=== PATIENT | female | born 1940 | race Caucasian/White ===

== ENCOUNTER 2018-01-29 20:51 | Emergency (ER) | payer OTHER ==
[2018-01-29 22:00] LABS: Absolute Lymphocytes (CBC) 2.9 K/uL (0.7-4.9); Absolute Neutrophil 6.9 K/uL (1.8-8.0); Basophils % 0.7 % (0-1.3); Eosinophils % 2.5 % (0-4.4); Hematocrit 34.9 % (36.0-45.0); Lymphocytes % 26.2 % (15.3-44.8); MCV 83.3 fL (80-100); MPV 7.7 fL (7.6-11.3); Monocytes % 8.7 % (3.3-12.3); RBC Red Blood Cell Count 4.18 M/uL (3.86-4.86)
[2018-01-29 22:21] LABS: Potassium 4.6 mEq/L (3.6-5.0)
--- NOTE | 2018-01-29 23:22 | EDPHYS ---
Physician Documentation [facility] Name: Lynda Esquivel Age: 77 yrs Sex: Female : 1940 Arrival Date: 01/29/2018 Time: 20:54 Bed 14 Private MD: Олег Calhoun V ED Physician Wade Gomez HPI: 01/29 22:00 This 77 yrs old Female presents to ER via Ambulatory with complaints of kb Constipation. 22:00 The patient presents with abdominal pain. Onset: The symptoms/episode began/occurred 3 kb day(s) ago. The symptoms do not radiate. Associated signs and symptoms: Pertinent positives: constipation, Pertinent negatives: nausea, vomiting, and diarrhea. The symptoms are described as constant. Modifying factors: The symptoms are alleviated by nothing, the symptoms are aggravated by nothing. Severity of pain: At its worst the pain was mild moderate in the emergency department the pain is unchanged. The patient has experienced similar episodes in the past, multiple times. The patient has not recently seen a physician. Historical: - Allergies: 21:00 metformin; aa1 21:00 Edkzyfg-Zoi-Vtw Reductase Inhibitors; aa1 - Home Meds: 21:00 levothyroxine oral [Active]; unknown blood pressure medication [Active]; unknown aa1 insulin [Active]; Lantus Sub-Q [Active]; Humalog Sub-Q [Active]; - PMHx: 21:00 Diabetes - IDDM; Hypertension; Hypothyroidism; pulmonary fibrosis; aa1 21:00 Renal Disease; aa1 - PSHx: 21:00 Heart Surgery; Hysterectomy; Cholecystectomy; aa1 - Immunization history:: Flu vaccine is up to date. - Social history:: Smoking status: Patient/guardian denies using tobacco. ROS: 22:00 Constitutional: Negative for fever, chills, and weight loss, Cardiovascular: Negative kb for chest pain, palpitations, and edema, Respiratory: Negative for shortness of breath, cough, wheezing, and pleuritic chest pain, Back: Negative for injury and pain, : Negative for injury, bleeding, discharge, and swelling, MS/Extremity: Negative for injury and deformity, Skin: Negative for injury, rash, and discoloration, Neuro: Negative for headache, weakness, numbness, tingling, and seizure. 22:00 Abdomen/GI: Positive for abdominal pain, constipation, Negative for nausea, vomiting, and diarrhea, abdominal cramps, abdominal distension, anorexia. Exam: 22:00 Constitutional: This is a well developed, well nourished patient who is awake, alert, kb and in no acute distress. Head/Face: Normocephalic, atraumatic. Chest/axilla: Normal chest wall appearance and motion. Nontender with no deformity. No lesions are appreciated. Cardiovascular: Regular rate and rhythm with a normal S1 and S2. No gallops, murmurs, or rubs. Normal PMI, no JVD. No pulse deficits. Respiratory: Lungs have equal breath sounds bilaterally, clear to auscultation and percussion. No rales, rhonchi or wheezes noted. No increased work of breathing, no retractions or nasal flaring. Back: No spinal tenderness. No costovertebral tenderness. Full range of motion. Skin: Warm, dry with normal turgor. Normal color with no rashes, no lesions, and no evidence of cellulitis. MS/ Extremity: Pulses equal, no cyanosis. Neurovascular intact. Full, normal range of motion. Neuro: Awake and alert, GCS 15, oriented to person, place, time, and situation. Cranial nerves II-XII grossly intact. Motor strength 5/5 in all extremities. Sensory grossly intact. Cerebellar exam normal. Normal gait. 22:00 Abdomen/GI: Inspection: abdomen appears normal, Bowel sounds: normal, in all quadrants, Palpation: soft, in all quadrants, mild abdominal tenderness, in all quadrants. 23:20 Abdomen/GI: Rectal exam: rectal tone normal, fecal impaction, that is mild, the exam is kb chaperoned by the nurse, disimpaction performed by me. Moderated amount of soft stool removed. . Vital Signs: 21:00 BP 130 / 53; Pulse 75; Resp 22; Temp 97.6; Pulse Ox 95% on R/A; Weight 90.72 kg (R); aa1 Height 5 ft. 4 in. (162.56 cm); Pain 8/10; 22:06 BP 141 / 57; Pulse 97; Resp 20 S; Pulse Ox 95% on R/A; jd3 23:04 BP 161 / 65; Pulse 71; Resp 21 S; Pulse Ox 95% on R/A; Pain 8/10; jd3 21:00 Body Mass Index 34.33 (90.72 kg, 162.56 cm) aa1 MDM: 21:03 Patient medically screened. kb 22:00 Data reviewed: vital signs, nurses notes. Data interpreted: Pulse oximetry: on room air kb is 95 %. Interpretation: normal. 23:09 Counseling: I had a detailed discussion with the patient and/or guardian regarding: the kb historical points, exam findings, and any diagnostic results supporting the discharge/admit diagnosis, lab results, radiology results, the need for outpatient follow up, a family practitioner, to return to the emergency department if symptoms worsen or persist or if there are any questions or concerns that arise at home. 01/29 21:20 Order name: Creatinine for Radiology; Complete Time: 22:05 kb 01/29 21:20 Order name: Basic Metabolic Panel; Complete Time: 22:22 kb 01/29 21:20 Order name: CBC with Diff; Complete Time: 22:11 kb 01/29 21:20 Order name: IV Saline Lock; Complete Time: 21:48 kb 01/29 21:20 Order name: CT Abd/Pelvis - W/Contrast kb 01/29 21:20 Order name: Labs collected and sent; Complete Time: 21:48 kb Administered Medications: 23:25 Drug: Magnesium Citrate Liquid 300 ml Route: PO; jd3 23:45 Follow up: Response: Medication administered at discharge. jd3 Disposition: 01/29/18 23:21 Discharged to Home. Impression: Constipation. - Condition is Stable. - Discharge Instructions: Constipation, Adult, Sgij-fm-Wbtm. - Medication Reconciliation Form, Thank You Letter, Antibiotic Education, Prescription Opioid Use form. - Follow up: Emergency Department; When: As needed; Reason: Worsening of condition. Follow up: Private Physician; When: 2 - 3 days; Reason: Recheck today's complaints, Continuance of care, Re-evaluation by your physician. Addendum: 01/31/2018 18:58 Co-signature as Attending Physician, Wade Gomez MD I agree with the assessment and c flores plan of care. Signatures: Dispatcher [employer] Juliana Mccoy, TORY-C TORY-Shahrzad Ferrer, RN RN aa1 Wade Gomez MD MD cha Davies, Jonathon RN RN jd3
--- NOTE | 2018-01-29 23:22 | ER ---
Nurse's Notes [facility] Name: Lynda Esquivel Age: 77 yrs Sex: Female : 1940 Arrival Date: 01/29/2018 Time: 20:54 Bed 14 Private MD: Олег Calhoun V Diagnosis: Constipation Presentation: 01/29 20:58 Presenting complaint: Patient states: constipation x 3 days. Reports chronic aa1 constipation. States she has tried OTC methods with no relief. Transition of care: patient was not received from another setting of care. Onset of symptoms was January 27, 2018. Care prior to arrival: None. 20:58 Method Of Arrival: Ambulatory aa1 20:58 Acuity: SHANIQUA 3 aa1 21:51 Mechanism of Injury: No Mechanism of Injury. jd3 Triage Assessment: 21:00 General: Appears in no apparent distress. uncomfortable, Behavior is calm, cooperative, aa1 appropriate for age. Historical: - Allergies: 21:00 metformin; aa1 21:00 Fwrasnt-Cva-Hus Reductase Inhibitors; aa1 - Home Meds: 21:00 levothyroxine oral [Active]; unknown blood pressure medication [Active]; unknown aa1 insulin [Active]; Lantus Sub-Q [Active]; Humalog Sub-Q [Active]; - PMHx: 21:00 Diabetes - IDDM; Hypertension; Hypothyroidism; pulmonary fibrosis; aa1 21:00 Renal Disease; aa1 - PSHx: 21:00 Heart Surgery; Hysterectomy; Cholecystectomy; aa1 - Immunization history:: Flu vaccine is up to date. - Social history:: Smoking status: Patient/guardian denies using tobacco. Screenin:51 Abuse screen: Denies threats or abuse. Nutritional screening: No deficits noted. jd3 Tuberculosis screening: No symptoms or risk factors identified. Fall Risk IV access (20 points). Total Herring Fall Scale indicates No Risk (0-24 pts). Assessment: 21:40 General: Appears in no apparent distress. comfortable, Behavior is calm, cooperative, jd3 appropriate for age. Pain: Complains of pain in left upper quadrant and left lower quadrant Quality of pain is described as crampy, pressure. Neuro: Level of Consciousness is awake, alert, obeys commands, Oriented to person, place, time, situation. Cardiovascular: Heart tones S1 S2 present Capillary refill is > 3 seconds Patient's skin is warm and dry. Respiratory: Airway is patent Respiratory effort is even, unlabored, Respiratory pattern is regular, symmetrical, Breath sounds are clear bilaterally. GI: Abdomen is round Bowel sounds present X 4 quads. Abd is soft and non tender X 4 quads. : No signs and/or symptoms were reported regarding the genitourinary system. EENT: No signs and/or symptoms were reported regarding the EENT system. Derm: Skin is intact, Skin is dry, Skin is normal, Skin temperature is warm. Musculoskeletal: Circulation, motion, and sensation intact. Range of motion: intact in all extremities. 23:04 Reassessment: Patient appears in no apparent distress at this time. Patient and/or jd3 family updated on plan of care and expected duration. Pain level reassessed. Patient is alert, oriented x 3, equal unlabored respirations, skin warm/dry/pink. pt reporting pain, provider notified, no new orders at this time. 23:44 Reassessment: Patient appears in no apparent distress at this time. Patient and/or jd3 family updated on plan of care and expected duration. Pain level reassessed. Patient is alert, oriented x 3, equal unlabored respirations, skin warm/dry/pink. pt reported understanding of discharge instructions, pt assisted to front of ED with wheelchair. Vital Signs: 21:00 BP 130 / 53; Pulse 75; Resp 22; Temp 97.6; Pulse Ox 95% on R/A; Weight 90.72 kg (R); aa1 Height 5 ft. 4 in. (162.56 cm); Pain 8/10; 22:06 BP 141 / 57; Pulse 97; Resp 20 S; Pulse Ox 95% on R/A; jd3 23:04 BP 161 / 65; Pulse 71; Resp 21 S; Pulse Ox 95% on R/A; Pain 8/10; jd3 21:00 Body Mass Index 34.33 (90.72 kg, 162.56 cm) aa1 ED Course: 20:54 Patient arrived in ED. es 20:54 Олег Calhoun MD is Private Physician. es 20:58 Triage completed. aa1 21:00 Arm band placed on left wrist. aa1 21:03 [facility]C [facility] kb 21:03 Wade Gomez MD is Attending Physician. kb 21:23 Radiology exam delayed due to lab results not completed at this time. (BUN/Creatinine). 2 21:29 Anthony Noguera, RN is Primary Nurse. jd3 21:45 Inserted saline lock: 22 gauge in left antecubital area, using aseptic technique. Blood jd3 collected. 21:46 Radiology exam delayed due to lab results not completed at this time. (BUN/Creatinine). nj 21:48 CBC with Diff Sent. jd3 21:48 Basic Metabolic Panel Sent. jd3 21:48 Creatinine for Radiology Sent. jd3 21:50 Patient has correct armband on for positive identification. Bed in low position. Call jd3 light in reach. Side rails up X 1. Adult w/ patient. 22:28 CT completed. Patient tolerated procedure well. Patient moved back from CT. ri 22:28 CT Abd/Pelvis - W/Contrast In Process Unspecified. EDMS 23:43 No provider procedures requiring assistance completed. IV discontinued, intact, jd3 bleeding controlled, No redness/swelling at site. Pressure dressing applied. Administered Medications: 23:25 Drug: Magnesium Citrate Liquid 300 ml Route: PO; jd3 23:45 Follow up: Response: Medication administered at discharge. jd3 Outcome: 23:21 Discharge ordered by MD. kb 23:43 Discharged to home via wheelchair, with family. jd3 23:43 Condition: stable 23:43 Discharge instructions given to patient, Instructed on discharge instructions, follow up and referral plans. Demonstrated understanding of instructions, follow-up care. 23:46 Patient left the ED. jd3 Signatures: Dispatcher [employer] EDSC Juliana Alfaro, TORY-C SCHOOL EXAMINER-Shahrzad Ferrer, RN RN Naty Lynch Nathan nj McGuire, [facility] Anthony Noguera, RN RN jd3
[2018-01-29] MEDS ORDERED: MAGNESIUM CITRATE 300 ML BOT ONE (23:24)
[2018-01-29 23:50] VITALS: TEMP 97.6; O2SAT 95
[2018-01-29 23:52] VITALS: BP 161/65
--- NOTE | 2018-01-30 08:23 | RAD REPORT ---
EXAM DESCRIPTION: CTAbdomen Pelvis W Contrast - 01/30/2018 4:29 am CLINICAL HISTORY: Abdominal pain. COMPARISON: None. TECHNIQUE: Biphasic CT imaging of the abdomen and pelvis was performed with 100 ml non-ionic IV cont rast. All CT scans are performed using dose optimization technique as appropriate and may include automated exposure control or mA/KV adjustment according to patient size. FINDINGS: Emphysematous changes are present with fibrotic linear opacities in both posterior lung ba ses.Small hiatal hernia. The liver demonstrates diffuse fatty infiltration. The spleen, pancreas, adrenal glands and kidneys a re within normal limits. No bowel obstruction, free air, free fluid or abscess. The appendix is normal. No evidence of signi ficant lymphadenopathy. No suspicious bony findings. IMPRESSION: No acute intra-abdominal or pelvic finding. Fatty liver.
== END 2018-01-29 23:46 | disposition home or self-care (01) ==
LOC: ER 20:51
DX: K59.00 Constipation, unspecified (principal); I10 Essential (primary) hypertension; E11.9 Type 2 diabetes mellitus without complications; E03.9 Hypothyroidism, unspecified; Z79.4 Long term (current) use of insulin; Z88.8 Allergy status to other drugs, medicaments and biological substances
CPT/HCPCS: 36415; 74177; 80048; 85025; Q9967; 99284

== ENCOUNTER 2018-01-30 10:30 | Emergency (ER) | payer OTHER ==
--- NOTE | 2018-01-30 11:47 | ER ---
Nurse's Notes [facility] Name: Lynda Esquivel Age: 77 yrs Sex: Female : 1940 Arrival Date: 01/30/2018 Time: 10:33 Bed Waiting Private MD: Олег Calhoun V Diagnosis: Presentation: 01/30 10:45 Presenting complaint: Patient states: cant pooped, i went today, but its so small and i hj noticed some blood in my popped; last BM was 3 daysa go;. Transition of care: patient was not received from another setting of care. Onset of symptoms was January 30, 2018. Care prior to arrival: None. 10:45 Method Of Arrival: Ambulatory hj 10:45 Acuity: SHANIQUA 3 hj Triage Assessment: 10:47 General: Appears in no apparent distress. uncomfortable, Behavior is calm, cooperative, hj appropriate for age. Pain: Complains of pain in abdomen. GI: Reports constipation. Historical: - Allergies: 10:47 metformin; hj 10:47 Pntofpi-Any-Yce Reductase Inhibitors; hj - Home Meds: 10:47 Humalog Sub-Q [Active]; Lantus Sub-Q [Active]; levothyroxine oral [Active]; unknown hj blood pressure medication [Active]; unknown insulin [Active]; - PMHx: 10:47 Diabetes - IDDM; Hypertension; Hypothyroidism; pulmonary fibrosis; Renal Disease; hj - PSHx: 10:47 Heart Surgery; Hysterectomy; Cholecystectomy; hj Assessment: 10:47 GI: Bowel sounds present X 4 quads. Abd is soft. Vital Signs: 10:47 BP 114 / 52; Pulse 70; Resp 18; Temp 97.8(TE); Pulse Ox 96% on R/A; Weight 90.72 kg; hj Height 5 ft. 4 in. (162.56 cm); Pain 6/10; 10:47 Body Mass Index 34.33 (90.72 kg, 162.56 cm) ED Course: 10:33 Patient arrived in ED. rg4 10:33 Олег Calhoun MD is Private Physician. rg4 10:46 Triage completed. hj 10:47 Arm band placed on right wrist. hj 11:46 Christelle Ledbetter, RN is Primary Nurse. iw Administered Medications: No medications were administered Outcome: 11:46 Eloped from waiting room, Time discovered patient gone: January 30, 2018 at 11:46 iw 11:46 Patient left the ED. iw Signatures: Christelle Ledbetter RN RN Pavel Duncan RN RN Diana Gutierrez rg4 Corrections: (The following items were deleted from the chart) 10:50 10:47 Pulse Ox 100% RA; 90.72 kg; Height 5 ft. 4 in.; BMI: 34.3; Pain 6/10; dariel vieira
[2018-01-30 11:49] VITALS: BP 114/52; TEMP 97.8; O2SAT 96
== END 2018-01-30 11:46 | disposition left against medical advice (07) ==
LOC: ER 10:30
DX: Z53.21 Procedure and treatment not carried out due to patient leaving prior to being seen by health care provider (principal)
CPT/HCPCS: 99281

== ENCOUNTER 2018-02-25 13:10 | Emergency (ER) | payer OTHER ==
[2018-02-25] MEDS ORDERED: NA CHLORIDE 0.9% 500 ML ONE (14:42)
[2018-02-25 14:49] LABS: Absolute Lymphocytes (CBC) 2.4 K/uL (0.7-4.9); Absolute Monocytes 0.9 K/uL (0.1-1.3); Absolute Neutrophil 7.9 K/uL (1.8-8.0); Basophils % 0.5 % (0-1.3); Eosinophils % 3.4 % (0-4.4); Hematocrit 36.8 % (36.0-45.0); Lymphocytes % 20.6 % (15.3-44.8); MCH 26.3 pg (27.0-35.0); MCV 83.1 fL (80-100); MPV 7.7 fL (7.6-11.3); Monocytes % 7.4 % (3.3-12.3); RBC Red Blood Cell Count 4.42 M/uL (3.86-4.86)
[2018-02-25 15:02] LABS: Bicarbonate 32 mEq/L (21-31); Glucose Level 268 mg/dL (65-120); Lipase 21 U/L (22-51); Potassium 4.4 mEq/L (3.6-5.0)
[2018-02-25 15:09] LABS: ALT/SGPT 21 IU/L (10-60); AST/SGOT 27 IU/L (10-42); Albumin 3.7 g/dL (3.2-5.5); Alkaline Phosphatase 53 IU/L (42-121); BUN Blood Urea Nitrogen 30 mg/dL (6-20); Bilirubin Direct < 0.1 mg/dL (0-0.2); Bilirubin Total 0.5 mg/dL (0.3-1.2)
--- NOTE | 2018-02-25 15:51 | RAD REPORT ---
EXAM DESCRIPTION: CT - Abdomen Pelvis W Contrast - 02/25/2018 3:34 pm CLINICAL HISTORY: Abdominal pain./constipation COMPARISON: January 2018 TECHNIQUE: Computed axial tomography of the abdomen and pelvis was obtained. 100 cc Isovue-300 is ad ministered intravenously. Oral contrast was given. All CT scans are performed using dose optimization technique as appropriate and may include automated exposure control or mA/KV adjustment according to patient size. FINDINGS: Fatty infiltration of the liver is seen. Spleen, pancreas, and adrenals appear unremarkable. A 2 millimeter nonobstructing left renal calculus is seen. Mild right hydronephrosis is seen. A 3 millimeter calculus is present within the proximal right urete r There is no evidence of diverticulitis A tiny umbilical hernia is present. A moderate to large amount of stool is present throughout colon. A neurostimulator device is in place IMPRESSION: 3 millimeter calculus in the proximal right ureter resulting in mild right hydronephrosi s A moderate to large amount of stool is present throughout colon
[2018-02-25] MEDS ORDERED: FLEET ENEMA ADULT PR ONE (16:54)
--- NOTE | 2018-02-25 18:46 | EDPHYS ---
Physician Documentation [facility] Name: Lynda Esquivel Age: 77 yrs Sex: Female : 1940 Arrival Date: 02/25/2018 Time: 13:11 Bed 5 Private MD: ED Physician Hans Couch HPI: 02/25 15:23 This 77 yrs old Female presents to ER via Ambulatory with complaints of rn Constipation. 15:23 The patient presents with abdominal pain that is diffuse. Onset: The symptoms/episode rn began/occurred at an unknown time. The symptoms do not radiate. Associated signs and symptoms: Pertinent positives: constipation, nausea, Pertinent negatives: blood in stools, fever, shortness of breath, vomiting, vomiting blood. The symptoms are described as crampy, intermittent. Modifying factors: The symptoms are alleviated by nothing, the symptoms are aggravated by nothing. Severity of pain: At its worst the pain was mild in the emergency department the pain is unchanged. The patient has experienced similar episodes in the past. Reports chronic constipation, no fever/nausea/vomiting, reports took several stool softeners at home, + recent thoracic surgery and has not had good bowel movement for several days. Feels like has stool in rectum, comes out and then goes back in.. Historical: - Allergies: 13:15 metformin; hb 13:15 Athzqsa-Ecn-Jtt Reductase Inhibitors; hb - Home Meds: 13:15 Humalog Sub-Q [Active]; Lantus Sub-Q [Active]; levothyroxine oral [Active]; unknown hb blood pressure medication [Active]; unknown insulin [Active]; - PMHx: 13:15 Hypertension; Hypothyroidism; pulmonary fibrosis; Diabetes - IDDM; Renal Disease; hb - PSHx: 13:15 Hysterectomy; Heart Surgery; Cholecystectomy; hb - Immunization history:: Adult Immunizations up to date. - Social history:: Smoking status: Patient/guardian denies using tobacco. - Family history:: not pertinent. - Hospitalizations: : No recent hospitalization is reported. ROS: 15:23 Constitutional: Negative for fever, chills, and weight loss, Eyes: Negative for injury, rn pain, redness, and discharge, Cardiovascular: Negative for chest pain, palpitations, and edema, Respiratory: Negative for shortness of breath, cough, wheezing, and pleuritic chest pain, Abdomen/GI: Negative for vomiting, diarrhea MS/Extremity: Negative for injury and deformity, Skin: Negative for injury, rash, and discoloration, Neuro: Negative for headache, weakness, numbness, tingling, and seizure. Exam: 15:23 Constitutional: This is a well developed, well nourished patient who is awake, alert, rn and in no acute distress. Head/Face: Normocephalic, atraumatic. Chest/axilla: healing mid thoracic sternal surgical wound Cardiovascular: Regular rate and rhythm with a normal S1 and S2. No gallops, murmurs, or rubs. Normal PMI, no JVD. No pulse deficits. Respiratory: Lungs have equal breath sounds bilaterally, clear to auscultation and percussion. No rales, rhonchi or wheezes noted. No increased work of breathing, no retractions or nasal flaring. Abdomen/GI: Soft, non-tender, with normal bowel sounds. No distension or tympany. No guarding or rebound. No evidence of tenderness throughout. MS/ Extremity: Pulses equal, no cyanosis. Neurovascular intact. Full, normal range of motion. Equal circumference. Neuro: Awake and alert, GCS 15, oriented to person, place, time, and situation. Cranial nerves II-XII grossly intact. Motor strength 5/5 in all extremities. Sensory grossly intact. Cerebellar exam normal. Normal gait. Vital Signs: 13:14 BP 133 / 103; Pulse 82; Resp 20; Temp 98.5; Pulse Ox 100% on R/A; Pain 5/10; hb MDM: 13:36 Patient medically screened. rn 18:44 Differential diagnosis: bowel obstruction, constipation, dehydration. Data reviewed: rn vital signs, nurses notes, lab test result(s), radiologic studies, CT scan, and as a result, I will discharge patient. Counseling: I had a detailed discussion with the patient and/or guardian regarding: the historical points, exam findings, and any diagnostic results supporting the discharge/admit diagnosis, lab results, radiology results, the need for outpatient follow up, to return to the emergency department if symptoms worsen or persist or if there are any questions or concerns that arise at home. Response to treatment: the patient's symptoms have markedly improved after treatment, and as a result, I will discharge patient. Special discussion: Based on the patient's Hx, exam, and Dx evaluation, there is no indication for emergent surgery or inpatient Tx. It is understood by the patient/guardian that if the Sx's persist or worsen they need to return immediately for re-evaluation. I discussed with the patient/guardian in detail that at this point there is no indication for admission to the hospital. It is understood, however, that if the symptoms persist or worsen the patient needs to return immediately for re-evaluation. ED course: CT shows constipation, + large bowel movement with disimpaction. 02/25 13:44 Order name: Basic Metabolic Panel rn 02/25 13:44 Order name: CBC with Diff; Complete Time: 15:13 rn 02/25 13:44 Order name: Hepatic Function rn 02/25 13:44 Order name: Lipase rn 02/25 13:44 Order name: CT Abd/Pelvis - W/Contrast; Complete Time: 15:57 rn 02/25 13:44 Order name: IV Saline Lock; Complete Time: 14:11 rn 02/25 13:44 Order name: Labs collected and sent; Complete Time: 14:11 rn Administered Medications: 14:43 Drug: NS 0.9% 500 ml Route: IV; Rate: bolus; Site: left forearm; aa5 15:45 Follow up: Response: No adverse reaction; IV Status: Completed infusion; IV Intake: sg 490ml 16:45 Drug: Fleet Enema 133 ml Route: AK; sg 18:22 Follow up: Response: No change in condition sg Disposition: 02/25/18 18:46 Discharged to Home. Impression: Constipation, unspecified, Dehydration. - Condition is Stable. - Discharge Instructions: Constipation, Adult, Dehydration, Adult. - Medication Reconciliation Form, Thank You Letter, Antibiotic Education, Prescription Opioid Use form. - Follow up: Private Physician; When: As needed; Reason: Recheck today's complaints, Re-evaluation by your physician. - Problem is new. - Symptoms have improved. Signatures: Dispatcher [employer] EDMS Yrn Aguillon RN RN sg Dora Husain, RECEPTION INTERVIEWER-C RECEPTION INTERVIEWER-Csnw Hans Couch MD MD rn Calderon, Audri, RN RN aa5 Sinai Fischer RN RN Corrections: (The following items were deleted from the chart) 19:07 18:46 02/25/2018 18:46 Discharged to Home. Impression: Constipation, unspecified; snw Dehydration. Condition is Stable. Forms are Medication Reconciliation Form, Thank You Letter, Antibiotic Education, Prescription Opioid Use. Follow up: Private Physician; When: As needed; Reason: Recheck today's complaints, Re-evaluation by your physician. Problem is new. Symptoms have improved. rn
--- NOTE | 2018-02-25 18:46 | ER ---
Nurse's Notes [facility] Name: Lynda Esquivel Age: 77 yrs Sex: Female : 1940 Arrival Date: 02/25/2018 Time: 13:11 Bed 5 Private MD: Diagnosis: Constipation, unspecified;Dehydration Presentation: 02/25 13:13 Presenting complaint: Patient states: "I am constipated, I have poop hanging out and it hb is stuck.". Transition of care: patient was not received from another setting of care. Onset of symptoms was February 25, 2018. Initial Sepsis Screen: Does the patient meet any 2 criteria? No. Patient's initial sepsis screen is negative. Does the patient have a suspected source of infection? No. Patient's initial sepsis screen is negative. Care prior to arrival: None. 13:13 Method Of Arrival: Ambulatory hb 13:13 Acuity: SHANIQUA 3 hb Triage Assessment: 13:30 General: Appears in no apparent distress. uncomfortable, well groomed, well developed, sg well nourished, Behavior is calm, cooperative, appropriate for age. Historical: - Allergies: 13:15 metformin; hb 13:15 Bsrnqku-Rbw-Ggy Reductase Inhibitors; hb - Home Meds: 13:15 Humalog Sub-Q [Active]; Lantus Sub-Q [Active]; levothyroxine oral [Active]; unknown hb blood pressure medication [Active]; unknown insulin [Active]; - PMHx: 13:15 Hypertension; Hypothyroidism; pulmonary fibrosis; Diabetes - IDDM; Renal Disease; hb - PSHx: 13:15 Hysterectomy; Heart Surgery; Cholecystectomy; hb - Immunization history:: Adult Immunizations up to date. - Social history:: Smoking status: Patient/guardian denies using tobacco. - Family history:: not pertinent. - Hospitalizations: : No recent hospitalization is reported. Screenin:45 Abuse screen: Denies threats or abuse. Denies injuries from another. Nutritional sg screening: No deficits noted. Tuberculosis screening: No symptoms or risk factors identified. Never had TB. Fall Risk None identified. Assessment: 13:30 General: Appears in no apparent distress. uncomfortable, obese, well groomed, well sg developed, well nourished, Behavior is calm, cooperative, appropriate for age. General: Appears Behavior is. Pain: Complains of pain in Rectal pain and suprapubic area. Neuro: Level of Consciousness is awake, alert, obeys commands, Oriented to person, place, time, situation, Insurance Analyst are equal bilaterally Gait is steady, Speech is normal, Facial symmetry appears normal, Denies weakness blurred vision dizziness, difficulty swallowing, paresthesias numbness headache photophobia diplopia. Cardiovascular: Heart tones S1 S2 present Capillary refill is brisk in bilateral fingers Patient's skin is warm and dry. Chest pain is denied. Respiratory: Airway is patent Respiratory effort is even, unlabored, Respiratory pattern is regular, symmetrical, Breath sounds are clear. GI: Abdomen is round non-distended, Bowel sounds present X 4 quads. GI: Last BM was February 15, 2018. Reports constipation. : No signs and/or symptoms were reported regarding the genitourinary system. EENT: No signs and/or symptoms were reported regarding the EENT system. Derm: Skin is pink, warm \\T\\ dry. Musculoskeletal: No signs and/or symptoms reported regarding the musculoskeletal system. 14:02 Reassessment: CT notified pt completed PO contrast, left message on answering device, sg pt daughter antonio at bedside, pt requesting a call back number for antonio be placed in her chart. (please note ANTONIO [phone]). 14:38 Reassessment: Patient and/or family updated on plan of care and expected duration. Pain aa5 level reassessed. Patient is alert, oriented x 3, equal unlabored respirations, skin warm/dry/pink. 15:45 Reassessment: Patient appears in no apparent distress at this time. Patient and/or sg family updated on plan of care and expected duration. Pain level reassessed. Patient is alert, oriented x 3, equal unlabored respirations, skin warm/dry/pink. Patient states symptoms have not improved. 16:40 Reassessment: Patient appears in no apparent distress at this time. Patient and/or sg family updated on plan of care and expected duration. Pain level reassessed. Patient is alert, oriented x 3, equal unlabored respirations, skin warm/dry/pink. pt reports small BM Patient states symptoms have not improved. 17:40 Reassessment: pt given repeat Enema as ordered by , pt attempted to have a BM, sg a large BM noted, pt reports immediate relief, notified, ordered to DC pt to home. Vital Signs: 13:14 BP 133 / 103; Pulse 82; Resp 20; Temp 98.5; Pulse Ox 100% on R/A; Pain 5/10; hb ED Course: 13:11 Patient arrived in ED. al2 13:13 Triage completed. hb 13:14 Arm band placed on right wrist. hb 13:36 Hans Couch MD is Attending Physician. rn 14:09 Yrn Aguillon, RN is Primary Nurse. sg 14:10 Patient has correct armband on for positive identification. Bed in low position. Call sg light in reach. Side rails up X2. Pulse ox on. NIBP on. Warm blanket given. Head of bed elevated. 14:36 Initial lab(s) drawn, by me, sent to lab. Inserted saline lock: 22 gauge in left aa5 forearm, using aseptic technique. Blood collected. 15:32 CT completed. Patient tolerated procedure well. Patient moved to CT via stretcher. Patient moved back from CT. 15:33 CT Abd/Pelvis - W/Contrast In Process Unspecified. EDMS 19:00 No provider procedures requiring assistance completed. IV discontinued, intact, sg bleeding controlled, No redness/swelling at site. Pressure dressing applied. Administered Medications: 14:43 Drug: NS 0.9% 500 ml Route: IV; Rate: bolus; Site: left forearm; aa5 15:45 Follow up: Response: No adverse reaction; IV Status: Completed infusion; IV Intake: sg 490ml 16:45 Drug: Fleet Enema 133 ml Route: NC; sg 18:22 Follow up: Response: No change in condition sg Intake: 15:45 IV: 490ml; Total: 490ml. sg Outcome: 18:46 Discharge ordered by . rn 19:00 Discharged to home via wheelchair, with family. sg 19:00 Condition: improved 19:00 Discharge instructions given to patient, family, supervisor electronics processing, Instructed on discharge instructions, follow up and referral plans. safety practices, Miralax OTC (use as directed), TUCS Pad OTC ( use as directed for rectal pain), D.C instructions provided to daughter Antonio as well Demonstrated understanding of instructions, follow-up care. 19:07 Patient left the ED. snw Signatures: Dispatcher [employer] EDCO Yrn Aguillon, RN RN sg Rodrigue, Dora, WHEEL TRUER-C WHEEL TRUER-Csnw Emy Platt Roman, MD MD rn Calderon, Audri RN RN aa5 Sinai Fischer RN RN jessika Turner, Little maciel2 Corrections: (The following items were deleted from the chart) 19:40 15:40 Reassessment: pt given repeat Enema as ordered by , pt attempted to have sg a BM, a large BM noted, pt reports immediate relief, notified, ordered to DC pt to home sg
[2018-02-25 19:16] VITALS: BP 133/103; TEMP 98.5; O2SAT 100
[2018-02-25 22:24] LABS: Sodium Level 139 mEq/L (135-145)
== END 2018-02-25 19:07 | disposition home or self-care (01) ==
LOC: ER 13:10
DX: E86.0 Dehydration (principal); I10 Essential (primary) hypertension; E11.9 Type 2 diabetes mellitus without complications; E03.9 Hypothyroidism, unspecified; Z79.4 Long term (current) use of insulin; Z88.8 Allergy status to other drugs, medicaments and biological substances
CPT/HCPCS: 36415; 74177; 80048; 80076; 83690; 85025; Q9967; 96360; 99284

== ENCOUNTER 2018-03-15 09:45 | Observation (INO) | payer OTHER ==
[2018-03-15 11:00] LABS: Absolute Monocytes 1.4 K/uL (0.1-1.3); Absolute Neutrophil 7.2 K/uL (1.8-8.0); Basophils % 0.7 % (0-1.3); Eosinophils % 4.1 % (0-4.4); Hematocrit 39.7 % (36.0-45.0); Lymphocytes % 30.3 % (15.3-44.8); MCH 26.1 pg (27.0-35.0); MCV 83.4 fL (80-100); MPV 8.6 fL (7.6-11.3); Monocytes % 10.6 % (3.3-12.3); RBC Red Blood Cell Count 4.76 M/uL (3.86-4.86)
[2018-03-15 11:02] LABS: Protime INR 1.29
[2018-03-15 11:07] LABS: Potassium 4.3 mEq/L (3.6-5.0)
[2018-03-15 11:13] LABS: Bilirubin Direct 0.2 mg/dL (0-0.2); Bilirubin Total 0.6 mg/dL (0.3-1.2); Magnesium 1.6 mg/dL (1.8-2.5); Phosphorus 2.6 mg/dL (2.5-4.3); Protein, Total 7.9 g/dL (6.0-8.3)
[2018-03-15 11:19] VITALS: BMI 30.4
[2018-03-15 11:44] LABS: Thyroid Stimulating Hormone 1.11 uIU/mL (0.34-5.60)
[2018-03-15] MEDS: ONDANSETRON 4 MG/2 ML VIAL IV PRN ×2 (12:09→22:00)
--- NOTE | 2018-03-15 12:55 | P.HP ---
Certification for Inpatient Patient admitted to: Observation With expected LOS: <2 Midnights Practitioner: I am a practitioner with admitting privileges, knowledge of patient current condition, hospital course, and medical plan of care. Services: Services provided to patient in accordance with Admission requirements found in Title 42 Section 412.3 of the Code of Federal Regulations Patient History Date of Service: 03/15/18 Reason for admission: NAUSEA, ANOREXIA, WEIGHT LOSS, ALTERED MENTAL STATUS History of Present Illness: MS. PALOMINO HAD SUTURES TAKEN OUT FROM OLD CABG SURGERY THEY WERE VERY PAINFUL AND SINCE THAT SURGERY SHE HAS NOT ATE WELL, IS HAVING NAUSEA ALL THE TIME, HAS LOST 20 LBS. PER DAUGHTER SHE IS CONFUSED AT TIMES ALSO. Allergies Beta-Blockers (Beta-Adrenergic Bloc Allergy (Verified 05/13/12 17:45) Hives/Rash metformin Allergy (Unverified 02/21/15 01:40) Unknown Sulfa (Sulfonamide Antibiotics) [Sulfa(Sulfonamide Antibiotics)] Allergy ( Verified 05/13/12 17:45) Hives/Rash Qmtpwcm-Pvz-Vhx Allergy (Uncoded 02/25/16 21:50) Unknown Heirket-Xfc-Qrp R Allergy (Uncoded 02/22/16 13:39) Unknown Wsnzawc-Hxw-Jul Red Allergy (Uncoded 10/06/17 23:56) Unknown Wthirdl-Chd-Gkg Reduct Allergy (Uncoded 01/29/18 23:49) Unknown Ziffudz-Skc-Uky Reductase Allergy (Uncoded 02/21/15 01:40) Unknown - Past Medical/Surgical History Has patient received pneumonia vaccine in the past: No Diabetic: Yes -: pulmonary fibrosis -: IDDM -: kidney disease -: arthritis(osteo and rheumatoid) -: 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 heart surgery) -: hysterectomy 1969 -: re-open chest fixed wires that closes the ribs (feb 18 2018) -: Right artificial shoulder sx 2008 -: gall bladder and appendix removal 1979 - Family History Mother -: Diabetes, Cancer, Other (see notes) Notes: arterial disease, lung cancer Father History Unknown: Yes - Social History Smoking Status: Never smoker Alcohol use: No CD- Drugs: No Caffeine use: No Place of Residence: Home Review of Systems 10-point ROS is otherwise unremarkable General: Weakness, Malaise Respiratory: Pleuritic Pain, As per HPI Gastrointestinal: Nausea Physical Examination - Physical Exam General: Alert, Moderate distress HEENT: Atraumatic, PERRLA, Mucous membr. moist/pink, EOMI, Sclerae nonicteric Neck: Supple, 2+ carotid pulse no bruit, No LAD, Without JVD or thyroid abnormality Respiratory: Other (TENDER CHEST WALL, NO CELLULITIS, WOUND FOR SURGERY HAS HEALED. NO PUS, NO EXUDATE) Cardiovascular: Regular rate/rhythm, Normal S1 S2 Gastrointestinal: Normal bowel sounds, No tenderness Musculoskeletal: No tenderness Integumentary: No rashes Neurological: Normal gait, Normal speech, Normal strength at 5/5 x4 extr, Normal tone, Normal affect Lymphatics: No axilla or inguinal lymphadenopathy - Studies Laboratory Data (last 24 hrs) 03/15/18 10:37: Sodium 137, Potassium 4.3, BUN 38 H, Creatinine 1.43 H, Glucose 301 H, Phosphorus 2.6, Magnesium 1.6 L, Total Bilirubin 0.6, AST 34, ALT 24, Alkaline Phosphatase 60 03/15/18 10:37: PT 15.3 H, INR 1.29, APTT 26.2 03/15/18 10:37: WBC 13.2 H, Hgb 12.4, Hct 39.7, Plt Count 263 Assessment and Plan - Problems (Diagnosis) (1) Adult failure to thrive Current Visit: Yes Status: Acute Plan: DEHYDRATION NOT ATE WELL FOR 3 WEEKS NOT ABLE TO WALK ANOREXIC WILL DO CT CHEST ABD PELVIS TO RULE OUT HIDDEN ETIOLOGIES. (2) Nausea Current Visit: Yes Status: Acute Plan: PROTONIX IV EGD LATER (3) Chest pain Current Visit: Yes Status: Acute Plan: PLEURITIC PAIN NOT CARDIAC POST SURGERY INFLAMMATION. CHECK PROCAL. Qualifiers: Chest pain type: precordial pain Qualified Code(s): R07.2 - Precordial pain (4) Unexplained weight loss Current Visit: Yes Status: Acute (5) Anorexia Current Visit: Yes Status: Acute Plan: FROM ALL ABOVE ISSUES. WILL FU - Advance Directives Does patient have a Living Will: Yes Does patient have a Durable POA for Healthcare: Yes
[2018-03-15] MEDS ORDERED: PNEUMOCOCCAL VACCINE 0.5 ML IMVAC ONE (13:00)
--- NOTE | 2018-03-15 13:36 | EKG ---
Test Date: 2018-03-15 Test Time: 11:02:48 Seismic Prospecting Observer Helper: LYDIA MEASUREMENT RESULTS: Intervals: Rate: 72 MI: 220 QRSD: 152 QT: 420 QTc: 459 Hughes: P: MI: 220 QRS: 70 T: 7 INTERPRETIVE STATEMENTS: Sinus rhythm with first degree AV block Right bundle branch block Abnormal ECG Compared to ECG 02/22/2016 09:39:06 Atrial fibrillation no longer present Electronically Signed On 03-15-18 13:36:15 CDT by Jake Clark
--- NOTE | 2018-03-15 13:55 | RAD REPORT ---
EXAM DESCRIPTION: RAD - Chest Pa And Lat (2 Views) - 03/15/2018 1:30 pm CLINICAL HISTORY: Abdominal pain, chest pain, nausea COMPARISON: August 2016 chest exam, March 15 CT imaging TECHNIQUE: PA and lateral views of the chest were obtained. FINDINGS: The lungs are extensively fibrotic as a baseline. Pattern is fractionally worse in the low er left lung field. Interstitial edema or infiltrate could be superimposed on chronic fibrotic patter n. Elevated right hemidiaphragm noted. No new mediastinal or hilar mass seen. Trachea is midline. Po stsurgical changes are noted to the sternum and in the mediastinum. Postsurgical changes with prosthe sis placement at the right shoulder. Heart size is normal. Pulmonary vasculature within normal limits . No pleural effusion or pneumothorax seen. No aortic abnormality. IMPRESSION: Fibrotic lung pattern with interstitial markings in the left base slightly more pronounc ed than the 2016 comparison. Minimal interstitial edema or infiltrate at the left base would be possible. This could be progressiv e fibrosis. No large mass, consolidation or significant failure finding.
--- NOTE | 2018-03-15 14:06 | RAD REPORT ---
EXAM DESCRIPTION: CT - Chest Abdomen Pelvis W Cont - 03/15/2018 1:20 pm CLINICAL HISTORY: Chest pain, abdominal pain, nausea COMPARISON: CT abdomen and pelvis February 25 TECHNIQUE: Following dynamic enhancement using 100 milliliters nonionic IV contrast, axial imaging o f the chest, abdomen and pelvis was performed. Biphasic technique was utilized through the abdomen. Oral contrast was administered. All CT scans are performed using dose optimization technique as appropriate and may include automated exposure control or mA/KV adjustment according to patient size. FINDINGS: Extensive fibrotic lung changes are present. Bullous cavities are present. No suspicious m ass identified. No airspace consolidation seen. No pleural effusion, pleural thickening or pneumothor ax. No significant aortic or pulmonary arterial tree finding. Mediastinal and hilar regions show no m ass or abnormal lymphadenopathy. No chest wall mass or axillary lymphadenopathy. Aortic and dense cor onary artery calcifications are present. No pericardial thickening or effusion. [place] artifact is pre sent from the right shoulder prosthesis. Disc and bony degenerative changes are present. No pathologi c bone process. Right hemidiaphragm elevation is noted. Liver and spleen show no acute parenchymal findings. No solid or cystic mass of the pancreas. Cholecystectomy clips are present. No biliary tree dilatation. Symmetric renal function is seen with no mass or hydronephrosis. Proximal right ureter calculus is st ill present. This does not cause any proximal or upstream dilatation or delayed function. No pyelonephritis or acute renal parenchymal process. Urinary bladder is mostly contracted limiting d etail. No bladder calculi seen. Uterus is absent. Ovaries are absent or atrophic. No adnexal mass. No gastric dilatation or gastric wall thickening. No dilated large or small bowel loop. Sigmoid colon is tortuous. Patient has a generalized laxity of the pelvic floor. No acute GI findings seen. Advanced disc and bony degenerative change present. Arterial calcifications are present. No significant vascular findings. IMPRESSION: CT chest imaging shows advanced fibrotic lung change. There is no large mass or consolid ation. Early stages of interstitial edema or infiltrate can be masked by the chronic pattern. Small proximal right ureter calcification is still present. This does not cause any hydronephrosis or asymmetry of function.
[2018-03-15] MEDS ORDERED: D50W 25 GM/50 ML SYRINGE IV PRN (17:06)
[2018-03-15] MEDS ORDERED: GLUCAGON 1 MG/VIAL IM PRN (17:06)
[2018-03-15] MEDS: INSULIN -REGULAR HUMAN 50 UNIT/0.5 ML ML SQ SCH ×2 (17:47→22:02)
[2018-03-15] MEDS ORDERED: MAGNESIUM SULFATE 1 gm IVPB 1 GM/100 ML BAG IV ONE (21:00)
[2018-03-16 06:05] LABS: Absolute Lymphocytes (CBC) 2.7 K/uL (0.7-4.9); Absolute Neutrophil 5.7 K/uL (1.8-8.0); Basophils % 0.6 % (0-1.3); Eosinophils % 6.6 % (0-4.4); Hematocrit 38.7 % (36.0-45.0); Lymphocytes % 26.9 % (15.3-44.8); MCH 26.8 pg (27.0-35.0); MCV 82.7 fL (80-100); MPV 8.4 fL (7.6-11.3); Monocytes % 9.8 % (3.3-12.3); RBC Red Blood Cell Count 4.68 M/uL (3.86-4.86)
[2018-03-16 06:18] LABS: Magnesium 1.9 mg/dL (1.8-2.5); Potassium 4.6 mEq/L (3.6-5.0)
[2018-03-16] MEDS: INSULIN -REGULAR HUMAN 50 UNIT/0.5 ML ML SQ SCH ×2 (08:33→11:56)
[2018-03-16] MEDS: ONDANSETRON 4 MG/2 ML VIAL IV PRN (08:47)
[2018-03-16] MEDS ORDERED: HOME MED 1 EA UNK (Hydralazine Hcl [Hydralazine Hcl] 50 MG) PO SCH (09:00)
[2018-03-16] MEDS ORDERED: GABAPENTIN 100 MG CAP PO SCH ×2 (10:00→14:00)
[2018-03-16] MEDS ORDERED: FENOFIBRATE 48 MG TAB PO SCH ×2 (10:00→11:00)
[2018-03-16] MEDS ORDERED: HYDRALAZINE HCL 25 MG TABLET PO SCH (10:00)
[2018-03-16] MEDS ORDERED: LEVOTHYROXINE SOD 0.05 MG TABLET PO SCH (10:30)
[2018-03-16] MEDS ORDERED: LIOTHYRONINE SOD 5 MCG TAB PO SCH (10:30)
[2018-03-16 11:28] VITALS: BP 140/71; TEMP 97.3
[2018-03-16] MEDS ORDERED: HUMALOG 100 UNIT/ML SQ SCH (11:30)
[2018-03-16 13:11] VITALS: O2SAT 95
[2018-03-16] MEDS ORDERED: LANTUS SOLOSTAR SQ SCH (16:30)
[2018-03-16] MEDS ORDERED: HYDRALAZINE HCL 50 MG TABLET PO SCH (21:00)
[2018-03-17] MEDS ORDERED: LEVOTHYROXINE SOD 0.05 MG TABLET PO SCH (06:00)
[2018-03-17] MEDS ORDERED: LIOTHYRONINE SOD 5 MCG TAB PO SCH (06:00)
[2018-03-17] MEDS ORDERED: LANTUS SOLOSTAR 100 UNIT/ML SQ SCH (07:30)
[2018-03-18 17:13] LABS: A1c Component 0.8 mg/dL
== END 2018-03-16 12:05 | disposition home or self-care (01) ==
LOC: UNDOADMOB 09:57 → 4TH 09:57
PROVIDERS: ADMIT Internal Medicine; ATTEND Internal Medicine
DX: R62.7 Adult failure to thrive (principal); E86.0 Dehydration; R11.0 Nausea; R07.9 Chest pain, unspecified; R63.4 Abnormal weight loss; Z68.30 Body mass index [BMI] 30.0-30.9, adult; E11.9 Type 2 diabetes mellitus without complications; Z88.2 Allergy status to sulfonamides
CPT/HCPCS: 36415 ×2; 71046; 71260; 74177; 80048 ×2; 80076; 82306; 82607; 82962 ×6; 83036; 83735 ×2; 84100; 84145; 84443; 85025 ×2; 85610; 85730; 93005; 97110; 97116; 97163; G0378; G0379; J2405 ×3; J3475; Q9967

== ENCOUNTER 2018-05-16 20:46 | Emergency (ER) | payer OTHER ==
[2018-05-16] MEDS ORDERED: BISACODYL 10 MG RECTAL SUPP ONE (21:24)
[2018-05-16] MEDS ORDERED: NACHLORIDE 0.45% 1,000 ML IV ONE (21:25)
[2018-05-16] MEDS ORDERED: LACTULOSE 20 GM/30 ML UCUP ONE ×2 (21:25→21:29)
[2018-05-16 22:13] LABS: Absolute Lymphocytes (CBC) 2.2 K/uL (0.7-4.9); Absolute Monocytes 0.7 K/uL (0.1-1.3); Absolute Neutrophil 8.1 K/uL (1.8-8.0); Basophils % 0.6 % (0-1.3); Eosinophils % 1.7 % (0-4.4); Hematocrit 37.6 % (36.0-45.0); Lymphocytes % 19.8 % (15.3-44.8); MCH 27.6 pg (27.0-35.0); MPV 7.7 fL (7.6-11.3); Monocytes % 5.9 % (3.3-12.3); RBC Red Blood Cell Count 4.47 M/uL (3.86-4.86)
[2018-05-16 22:14] LABS: Protime INR 1.08
[2018-05-16 22:21] LABS: Albumin 3.7 g/dL (3.4-5.0); Bilirubin Direct 0.1 mg/dL (0-0.2); Bilirubin Total 0.4 mg/dL (0.2-1.0); CKMB Creatine Kinase MB 1.3 ng/mL (0.3-3.6); Potassium 4.2 mmol/L (3.5-5.1); Protein, Total 7.8 g/dL (6.4-8.2)
--- NOTE | 2018-05-17 01:40 | EDPHYS ---
Physician Documentation [facility] Name: Lynda Esquivel Age: 77 yrs Sex: Female : 1940 Arrival Date: 05/16/2018 Time: 20:51 Bed 28 Private MD: Олег Calhoun V ED Physician Wade Gomez HPI: 05/16 23:48 This 77 yrs old Female presents to ER via Wheelchair with complaints of lila Constipation. 23:48 The patient presents with abdominal pain in the lower abdomen. Onset: The lila symptoms/episode began/occurred 2 day(s) ago. The symptoms do not radiate. Associated signs and symptoms: none. The symptoms are described as crampy. Modifying factors: The symptoms are alleviated by remaining still, the symptoms are aggravated by no bm. Severity of pain: At its worst the pain was mild moderate in the emergency department the pain is unchanged. The patient has experienced similar episodes in the past, a few times. Historical: - Allergies: 21:03 metformin; aj1 21:03 Bwfdord-Bfz-Wcp Reductase Inhibitors; aj1 - Home Meds: 21:03 Humalog Sub-Q [Active]; Lantus Sub-Q [Active]; levothyroxine oral [Active]; unknown aj1 blood pressure medication [Active]; unknown insulin [Active]; - PMHx: 21:03 Diabetes - IDDM; Hypertension; Hypothyroidism; pulmonary fibrosis; Renal Disease; aj1 - Immunization history:: Flu vaccine is up to date. - Social history:: Smoking status: Patient/guardian denies using tobacco. - Ebola Screening: : Patient denies travel to an Ebola-affected area in the 21 days before illness onset. - Family history:: not pertinent. ROS: 23:48 Constitutional: Negative for fever, chills, and weight loss, Eyes: Negative for injury, lila pain, redness, and discharge, ENT: Negative for injury, pain, and discharge, Neck: Negative for injury, pain, and swelling, Cardiovascular: Negative for chest pain, palpitations, and edema, Respiratory: Negative for shortness of breath, cough, wheezing, and pleuritic chest pain, Back: Negative for injury and pain, : Negative for injury, bleeding, discharge, and swelling, MS/Extremity: Negative for injury and deformity, Skin: Negative for injury, rash, and discoloration, Neuro: Negative for headache, weakness, numbness, tingling, and seizure, Psych: Negative for depression, anxiety, suicide ideation, homicidal ideation, and hallucinations, Allergy/Immunology: Negative for hives, rash, and allergies, Endocrine: Negative for neck swelling, polydipsia, polyuria, polyphagia, and marked weight changes, Hematologic/Lymphatic: Negative for swollen nodes, abnormal bleeding, and unusual bruising. 23:48 Abdomen/GI: Positive for abdominal pain, constipation. Exam: 23:48 Constitutional: This is a well developed, well nourished patient who is awake, alert, lila and in no acute distress. Head/Face: Normocephalic, atraumatic. Eyes: Pupils equal round and reactive to light, extra-ocular motions intact. Lids and lashes normal. Conjunctiva and sclera are non-icteric and not injected. Cornea within normal limits. Periorbital areas with no swelling, redness, or edema. ENT: Nares patent. No nasal discharge, no septal abnormalities noted. Tympanic membranes are normal and external auditory canals are clear. Oropharynx with no redness, swelling, or masses, exudates, or evidence of obstruction, uvula midline. Mucous membranes moist. Neck: Trachea midline, no thyromegaly or masses palpated, and no cervical lymphadenopathy. Supple, full range of motion without nuchal rigidity, or vertebral point tenderness. No Meningismus. Chest/axilla: Normal chest wall appearance and motion. Nontender with no deformity. No lesions are appreciated. Cardiovascular: Regular rate and rhythm with a normal S1 and S2. No gallops, murmurs, or rubs. Normal PMI, no JVD. No pulse deficits. Respiratory: Lungs have equal breath sounds bilaterally, clear to auscultation and percussion. No rales, rhonchi or wheezes noted. No increased work of breathing, no retractions or nasal flaring. Back: No spinal tenderness. No costovertebral tenderness. Full range of motion. Female : Normal external genitalia. Skin: Warm, dry with normal turgor. Normal color with no rashes, no lesions, and no evidence of cellulitis. MS/ Extremity: Pulses equal, no cyanosis. Neurovascular intact. Full, normal range of motion. Neuro: Awake and alert, GCS 15, oriented to person, place, time, and situation. Cranial nerves II-XII grossly intact. Motor strength 5/5 in all extremities. Sensory grossly intact. Cerebellar exam normal. Normal gait. Psych: Awake, alert, with orientation to person, place and time. Behavior, mood, and affect are within normal limits. 23:48 Abdomen/GI: Inspection: distension, Bowel sounds: normal, Palpation: mild abdominal tenderness, in the suprapubic area, right lower quadrant and left lower quadrant, Liver: no appreciated palpable abnormalities, Hernia: not appreciated. Vital Signs: 21:03 BP 118 / 55; Pulse 77; Resp 18; Temp 97.4; Pulse Ox 95% on R/A; Weight 80.29 kg (R); aj1 Height 5 ft. 4 in. (162.56 cm) (R); Pain 0/10; 23:45 BP 132 / 53; Pulse 75; Resp 22; Pulse Ox 98% on R/A; rv 08 00:32 BP 154 / 67; Pulse 68; Resp 19; Pulse Ox 96% on R/A; rv 01:15 BP 141 / 63; Pulse 66; Resp 18; rv 08 21:03 Body Mass Index 30.38 (80.29 kg, 162.56 cm) aj1 MDM: 05/16 21:10 Patient medically screened. [facility] 23:48 Data reviewed: vital signs, nurses notes, lab test result(s), EKG, radiologic studies, [facility] CT scan, plain films. 05/16 21:13 Order name: Basic Metabolic Panel; Complete Time: 23:42 [facility] 05/16 21:13 Order name: CBC with Diff; Complete Time: 23:42 [facility] 05/16 21:13 Order name: Ckmb; Complete Time: 23:42 [facility] 05/16 21:13 Order name: CPK; Complete Time: 23:42 [facility] 05/16 21:13 Order name: LFT's; Complete Time: 23:42 [facility] 05/16 21:13 Order name: Magnesium; Complete Time: 23:42 [facility] 05/16 21:13 Order name: NT PRO-BNP; Complete Time: 23:42 [facility] 05/16 21:13 Order name: PT-INR; Complete Time: 23:42 [facility] 05/16 21:13 Order name: Ptt, Activated; Complete Time: 23:42 [facility] 05/16 21:13 Order name: Troponin (emerg Dept Use Only); Complete Time: 23:42 [facility] 05/16 21:13 Order name: XRAY Chest (1 view) [facility] 05/16 21:13 Order name: CT Abd/Pelvis - Without Cont: ORAL GASTROGRAFFIN ONLY [facility] 05/16 21:57 Order name: Lipase; Complete Time: 23:42 EDMS 05/16 21:13 Order name: EKG; Complete Time: 21:14 [facility] 05/16 21:13 Order name: Cardiac monitoring; Complete Time: 21:38 [facility] 05/16 21:13 Order name: EKG - Nurse/Tech; Complete Time: 21:38 [facility] 05/16 21:13 Order name: IV Saline Lock; Complete Time: 21:38 [facility] 05/16 21:13 Order name: Labs collected and sent; Complete Time: 21:38 [facility] 05/16 21:13 Order name: O2 Per Protocol; Complete Time: 21:38 [facility] 05/16 21:13 Order name: O2 Sat Monitoring; Complete Time: 21:38 [facility] Administered Medications: 22:04 Drug: Dulcolax Suppository 10 mg Route: VT; rv 22:29 Follow up: Response: No adverse reaction rv 22:08 Drug: NS 0.45 % 1000 ml Route: IV; Rate: 75 ml/hr; Site: right antecubital; rv 22:08 Drug: Lactulose 60 grams Volume: 45 ml; Route: PO; rv 22:29 Follow up: Response: No adverse reaction rv 05/17 01:49 Drug: Cipro 400 mg Volume: 200 ml; Route: IVPB; Infused Over: 60 mins; Site: right rv antecubital; 03:10 Follow up: IV Status: Completed infusion rv 01:55 Drug: Flagyl 500 mg Route: PO; rv 03:10 Follow up: Response: No adverse reaction rv Disposition: 05/17/18 01:39 Discharged to Home. Impression: Abdominal tenderness, Constipation, Left sided colitis - mild proctitis. - Condition is Stable. - Discharge Instructions: Abdominal Pain, Adult, Constipation, Adult, Constipation, Adult, [id number], Abdominal Pain, Adult, Keuy-oc-Lnor. - Prescriptions for Dulcolax 10 mg Rectal Suppository - insert 1 suppository by RECTAL route every 12 hours As needed; 10 suppository. Miralax 17 gram/dose Oral - take 1 packet by ORAL route every 12 hours dilute powder in 8 ounces of water or juice; 20 packet. Cipro 250 mg Oral Tablet - take 1 tablet by ORAL route every 12 hours; 14 tablet. Flagyl 500 mg Oral Tablet - take 1 tablet by ORAL route every 12 hours for 7 days; 14 tablet. - Medication Reconciliation Form, Thank You Letter, Antibiotic Education, Prescription Opioid Use form. - Follow up: Олег Calhoun; When: 2 - 3 days; Reason: Recheck today's complaints, Continuance of care, Re-evaluation by your physician. Follow up: Eligio Asif MD; When: 2 - 3 days; Reason: Recheck today's complaints, Re-evaluation by your physician. - Problem is new. - Symptoms have improved. Signatures: Dispatcher [employer] [facility] Chelsie Mitchell RN RN ajWade Philippe MD MD cha Vicente, Ronaldo, RN RN rv Corrections: (The following items were deleted from the chart) 05/16 21:56 21:14 LIPASE+C.LAB.BRZ ordered. [facility] 05/17 01:41 01:39 05/17/2018 01:39 Discharged to Home. Impression: Abdominal tenderness; lila Constipation; Left sided colitis - mild proctitis. Condition is Stable. Discharge Instructions: Abdominal Pain, Adult, Constipation, Adult, Constipation, Adult, Eybx-ha-Dyqk, Abdominal Pain, Adult, Idpn-ch-[id number]. Prescriptions for Dulcolax 10 mg Rectal Suppository - insert 1 suppository by RECTAL route every 12 hours As needed; 10 suppository, Miralax 17 gram/dose Oral - take 1 packet by ORAL route every 12 hours dilute powder in 8 ounces of water or juice; 20 packet. and Forms are Medication Reconciliation Form, Thank You Letter, Antibiotic Education, Prescription Opioid Use. Follow up: Олег Calhoun; When: 2 - 3 days; Reason: Recheck today's complaints, Continuance of care, Re-evaluation by your physician. Problem is new. Symptoms have improved. lila 03:11 01:41 05/17/2018 01:39 Discharged to Home. Impression: Abdominal tenderness; rv Constipation; Left sided colitis - mild proctitis. Condition is Stable. Discharge Instructions: Abdominal Pain, Adult, Constipation, Adult, Constipation, Adult, Zfbt-[id number], Abdominal Pain, Adult, Wqjr-od-Fxrc. Prescriptions for Dulcolax 10 mg Rectal Suppository - insert 1 suppository by RECTAL route every 12 hours As needed; 10 suppository, Miralax 17 gram/dose Oral - take 1 packet by ORAL route every 12 hours dilute powder in 8 ounces of water or juice; 20 packet, Cipro 500 mg Oral Tablet - take 1 tablet by ORAL route every 12 hours for 7 days; 14 tablet. and Forms are Medication Reconciliation Form, Thank You Letter, Antibiotic Education, Prescription Opioid Use. Follow up: Олег Calhoun; When: 2 - 3 days; Reason: Recheck today's complaints, Continuance of care, Re-evaluation by your physician. Follow up: Eligio Asif; When: 2 - 3 days; Reason: Recheck today's complaints, Re-evaluation by your physician. Problem is new. Symptoms have improved. lila
--- NOTE | 2018-05-17 01:40 | ER ---
Nurse's Notes [facility] Name: Lynda Esquivel Age: 77 yrs Sex: Female : 1940 Arrival Date: 05/16/2018 Time: 20:51 Bed 28 Private MD: Олег Calhoun V Diagnosis: Abdominal tenderness;Constipation;Left sided colitis-mild proctitis Presentation: 05/16 21:01 Presenting complaint: Patient states: She has been feeling constipated at 1800. States aj1 that she took some Miralax, but she has not had a bowel movement yet, but she feels like she needs to. States her last BM was 2 days ago. Denies abdominal pain. Denies pain. Transition of care: patient was not received from another setting of care. Onset of symptoms was May 16, 2018 at 18:00. Risk Assessment: Do you want to hurt yourself or someone else? Patient reports no desire to harm self or others. Initial Sepsis Screen: Does the patient meet any 2 criteria? No. Patient's initial sepsis screen is negative. Does the patient have a suspected source of infection? No. Patient's initial sepsis screen is negative. Care prior to arrival: None. 21:01 Method Of Arrival: Wheelchair aj1 21:01 Acuity: SHANIQUA 4 aj1 Triage Assessment: 21:03 General: Appears in no apparent distress. comfortable, Behavior is calm, cooperative, aj1 appropriate for age. Pain: Denies pain. Neuro: Level of Consciousness is awake, alert, obeys commands. Cardiovascular: Patient's skin is warm and dry. Respiratory: Airway is patent Respiratory effort is even, unlabored, Respiratory pattern is regular, symmetrical. GI: Reports constipation, Patient currently denies abdominal pain. Historical: - Allergies: 21:03 metformin; aj1 21:03 Sufersz-Bon-Qxd Reductase Inhibitors; aj1 - Home Meds: 21:03 Humalog Sub-Q [Active]; Lantus Sub-Q [Active]; levothyroxine oral [Active]; unknown aj1 blood pressure medication [Active]; unknown insulin [Active]; - PMHx: 21:03 Diabetes - IDDM; Hypertension; Hypothyroidism; pulmonary fibrosis; Renal Disease; aj1 - Immunization history:: Flu vaccine is up to date. - Social history:: Smoking status: Patient/guardian denies using tobacco. - Ebola Screening: : Patient denies travel to an Ebola-affected area in the 21 days before illness onset. - Family history:: not pertinent. Screenin:39 Abuse screen: Denies threats or abuse. Denies injuries from another. Nutritional rv screening: No deficits noted. Tuberculosis screening: No symptoms or risk factors identified. Fall Risk None identified. Assessment: 21:30 General: Appears in no apparent distress. comfortable, Behavior is calm, cooperative. rv 21:30 Pain: Denies pain. Neuro: Level of Consciousness is awake, alert, obeys commands, rv Oriented to person, place, time, situation. Cardiovascular: Capillary refill < 3 seconds. Respiratory: Airway is patent. GI: Bowel sounds present X 4 quads. Abd is soft and non tender X 4 quads. : No signs and/or symptoms were reported regarding the genitourinary system. EENT: No signs and/or symptoms were reported regarding the EENT system. Derm: Skin is intact. 22:32 Reassessment: Patient appears in no apparent distress at this time. Patient is alert, rv oriented x 3, equal unlabored respirations, skin warm/dry/pink. PATIENT ABLE TO MOVE LARGE BOWEL CONTENT. 05/17 01:16 Reassessment: Patient appears in no apparent distress at this time. Patient and/or rv family updated on plan of care and expected duration. Pain level reassessed. Patient is alert, oriented x 3, equal unlabored respirations, skin warm/dry/pink. AWAITING CT SCAN RESULT. Vital Signs: 05/16 21:03 BP 118 / 55; Pulse 77; Resp 18; Temp 97.4; Pulse Ox 95% on R/A; Weight 80.29 kg (R); aj1 Height 5 ft. 4 in. (162.56 cm) (R); Pain 0/10; 23:45 BP 132 / 53; Pulse 75; Resp 22; Pulse Ox 98% on R/A; rv 05/17 00:32 BP 154 / 67; Pulse 68; Resp 19; Pulse Ox 96% on R/A; rv 01:15 BP 141 / 63; Pulse 66; Resp 18; rv 05/16 21:03 Body Mass Index 30.38 (80.29 kg, 162.56 cm) aj1 ED Course: 05/16 20:51 Patient arrived in ED. es 20:51 Олег Calhoun MD is Private Physician. es 21:02 Triage completed. aj1 21:03 Arm band placed on Patient placed in an exam room. aj1 21:10 Wade Gomez MD is Attending Physician. lila 21:20 Missed attempt(s): 22 gauge in left in right antecubital area. jp3 21:25 Missed attempt(s): 22 gauge 24 gauge in right forearm. jp3 21:38 X-ray completed. Portable x-ray completed in exam room. Patient tolerated procedure bb2 well. 21:39 XRAY Chest (1 view) In Process Unspecified. EDMS 21:39 Patient has correct armband on for positive identification. Placed in gown. Bed in low rv position. Call light in reach. Side rails up X 1. court recording monitor on. Pulse ox on. NIBP on. 21:40 Initial lab(s) drawn, by me, sent to lab. Inserted saline lock: 24 gauge in right jp3 antecubital area, using aseptic technique. Blood collected. 21:55 Warm blanket given. jp3 21:56 Basic Metabolic Panel Sent. jp3 21:56 CBC with Diff Sent. jp3 21:56 Ckmb Sent. jp3 21:56 CPK Sent. jp3 21:56 LFT's Sent. jp3 21:56 Magnesium Sent. jp3 21:56 NT PRO-BNP Sent. jp3 21:56 Troponin (emerg Dept Use Only) Sent. jp3 21:56 Ptt, Activated Sent. jp3 21:56 PT-INR Sent. jp3 22:33 Assisted to bedside commode. jp3 22:35 IV is intact, with good blood return, Flushed right antecubital with 2 ml normal saline.jp3 23:54 CT completed. Patient tolerated procedure well. Patient moved to CT via stretcher. Patient moved back from CT. 05/17 00:09 CT Abd/Pelvis - Without Cont: ORAL GASTROGRAFFIN ONLY In Process Unspecified. EDMS 01:39 Олег Calhoun MD is Referral Physician. lila 01:41 Eligio Asif MD is Referral Physician. lila 03:10 No provider procedures requiring assistance completed. IV discontinued, bleeding rv controlled, No redness/swelling at site. Pressure dressing applied. Administered Medications: 05/16 22:04 Drug: Dulcolax Suppository 10 mg Route: MD; rv 22:29 Follow up: Response: No adverse reaction rv 22:08 Drug: NS 0.45 % 1000 ml Route: IV; Rate: 75 ml/hr; Site: right antecubital; rv 22:08 Drug: Lactulose 60 grams Volume: 45 ml; Route: PO; rv 22:29 Follow up: Response: No adverse reaction rv 05/17 01:49 Drug: Cipro 400 mg Volume: 200 ml; Route: IVPB; Infused Over: 60 mins; Site: right rv antecubital; 03:10 Follow up: IV Status: Completed infusion rv 01:55 Drug: Flagyl 500 mg Route: PO; rv 03:10 Follow up: Response: No adverse reaction rv Outcome: 01:39 Discharge ordered by MD. sharp 03:11 Discharged to home ambulatory. rv 03:11 Condition: improved 03:11 Discharge instructions given to patient, family, Instructed on discharge instructions, follow up and referral plans. medication usage, Prescriptions given X 3. 03:11 Patient left the ED. rv Signatures: Dispatcher [employer] Chelsie Sierra, TRUDY RN aj1 Wade Gomez MD MD cha Salyer, Edna es Hagler, Ervin eh Bock, Brittany bbBill Waller RN RN Chidi Castillo jp3 Corrections: (The following items were deleted from the chart) 05/16 23:30 23:24 Patient moved to [place] via stretcher. [facility]
[2018-05-17] MEDS ORDERED: CIPROFLOXACIN 400mg IV 400 MG/200 ML BAG IV ONE (01:47)
[2018-05-17] MEDS ORDERED: metroNIDAZOLE 500 MG TABLET ONE (01:55)
[2018-05-17 03:17] VITALS: TEMP 97.4
[2018-05-17 03:19] VITALS: O2SAT 96
[2018-05-17 03:20] VITALS: BP 141/63
--- NOTE | 2018-05-17 06:47 | EKG ---
Test Date: 2018-05-16 Test Time: 21:58:27 Physical Plant Manager: MEASUREMENT RESULTS: Intervals: Rate: 67 ME: 196 QRSD: 146 QT: 440 QTc: 464 [place]: P: 26 ME: 196 QRS: 77 T: 44 INTERPRETIVE STATEMENTS: Normal sinus rhythm Right bundle branch block Abnormal ECG Compared to ECG 03/15/2018 11:02:48 First degree AV block no longer present Electronically Signed On 05-17-18 06:46:30 CDT by Jake Clark
--- NOTE | 2018-05-17 07:24 | RAD REPORT ---
EXAM DESCRIPTION: Jabier Single View05/16/2018 9:41 pm CLINICAL HISTORY: Chest pain COMPARISON: March 2018 FINDINGS: The lungs appear clear of acute infiltrate. The heart is mildly enlarged. Postsurgical changes involve the chest. IMPRESSION: No acute abnormalities displayed
--- NOTE | 2018-05-17 07:57 | RAD REPORT ---
EXAM DESCRIPTION: CT - Abdomen Pelvis Wo Contrast - 05/17/2018 3:53 am CLINICAL HISTORY: Abdominal pain /constipation or COMPARISON: March 2018 TECHNIQUE: Computed axial tomography of the abdomen and pelvis was obtained. IV was not requested. O ral contrast was given. Coronal reconstructions performed. A preliminary report was generated by [employer] and reviewed prior to this dictation All CT scans are performed using dose optimization technique as appropriate and may include automated exposure control or mA/KV adjustment according to patient size. FINDINGS: The evaluation of solid organs and vessels is limited secondary to the lack of contrast a dministration. The lung bases demonstrate pulmonary fibrosis The liver, spleen, pancreas, adrenals and right kidney appear grossly normal. A 3 millimeter nonobstr ucting left renal calculus is seen. The wall of the rectum is thickened. There is no evidence of diverticulitis. A small hiatal hernia is present. IMPRESSION: Thickening of the wall of the rectum probably indicating proctitis. Neoplasm is a less l ikely consideration. Digital examination is recommended
== END 2018-05-17 03:11 | disposition home or self-care (01) ==
LOC: ER 20:46
DX: K51.50 Left sided colitis without complications (principal); K59.00 Constipation, unspecified; K62.89 Other specified diseases of anus and rectum; I10 Essential (primary) hypertension; E11.9 Type 2 diabetes mellitus without complications; E03.9 Hypothyroidism, unspecified; Z79.4 Long term (current) use of insulin; Z88.8 Allergy status to other drugs, medicaments and biological substances
CPT/HCPCS: 36415; 71045; 74176; 80048; 80076; 82550; 82553; 83690; 83735; 83880; 84484; 85025; 85610; 85730; 93005; 96365; 99285; J0744; 80053; 80061; 81003; 81015; 82043; 82570; 83036; 84439; 84443; 84481; 87086; 87088

== ENCOUNTER 2018-09-23 17:55 | Observation (INO) | payer OTHER ==
--- OUTSIDE RECORDS SUMMARY | 2018-09-23 17:59 | XMS REPORT | Continuity of Care Document ---
:1940 Author Organization Interface Problems Problem Status Onset Classification Date Comments Source Date Reported CHEST PAIN Active 02/23/20 18 [facility] PNEUMONIA, CHEST Active 02/23/20 [facility] PAIN 18 [facility] SURGICAL SITE Active 02/14/20 INFECTION, JOSIAH 18 [facility] Wound Resolved 11/29/19 Problem 02/27/2018 debridement; 12 [facility] sternal wound AVR - Aortic Resolved 10/13/20 Problem 02/27/2018 valve replacement 11 [facility] Abnormal Resolved Problem 02/27/2018 metabolic state [facility] in diabetes mellitus AF - Atrial Active Problem 02/27/2018 fibrillation [facility] CKD , 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/27/2018 III(<span [facility] ID="[id number]" >Confirmed</span> ) Osteoarthritis, Active Problem 02/27/2018 shoulder [facility] Diabetes mellitus Active Problem 02/27/2018 [facility] 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 [facility] S/P AVR (<span Active Problem 02/27/2018 ID="[id number]" [place] >Confirmed</span> ) Hypertension Active Problem 02/27/2018 [facility] Hypothyroidism Active Problem 02/27/2018 [facility] Maze procedure Active Problem 02/27/2018 [facility] Paroxysmal a-fib Resolved Problem 02/27/2018 [facility] Unspecified 02/22/2018 complication of [facility] procedure, initial encounter UNSPECIFIED Active COMPLICATION OF [facility] PROCEDURE, I ACUTE KIDNEY Active FAILURE, [facility] UNSPECIFIED PNEUMONIA, Active UNSPECIFIED [facility] ORGANISM Medications Medication Details Route Status Patient Ordering Order Source Instructions Provider Date Morphine 2 mg, 0.5 mL, Inactive Route: IVP, 2017 [facility] Drug form: SOLN, ONCE, Dosing Weight 86.364, kg, Priority: NOW, Start date: 02/24/18 10:49:00 CDT, Stop date: 02/24/18 10:49:00 CDTNotes: (Same as:MORPhine Sulfate) Acetaminophen 300 1 tab, Route: No Longer MG / Codeine PO, Drug Form: Active 2017 [facility] Phosphate 30 MG TAB, Dosing Oral Tablet Weight 86.364, [Tylenol with kg, Q4H, PRN Codeine #3] Pain Score 1-3, Start date: 02/23/18 17:05:00 CDT, Duration: 30 day, Stop date: 03/25/18 17:04:00 CDTNotes: Do not exceed 4gm/day of acetaminophen. (Same as: Tylenol with Codeine # 3) Docusate 100 mg, 1 cap, No Longer Route: PO, Drug Active 2017 [facility] form: CAP, Daily, Dosing Weight 86.364, kg, Priority: NOW, Start date: 02/23/18 17:04:00 CDT, Duration: 30 day, Stop date: 03/25/18 9:00:00 CDTNotes: (Same as: Colace) (Do Not Crush) Miralax 17 gm, 1 pkt, No Longer Route: PO, Drug Active 2017 [facility] form: PWDR, Daily, Dosing Weight 86.364, kg, Priority: NOW, Start date: 02/23/18 17:04:00 CDT, Duration: 30 day, Stop date: 03/25/18 9:00:00 CDTNotes: Dissolve in 8 oz of water or juice. (Same as: Miralax) Morphine 4 mg, 1 mL, Inactive Route: IVP, 2017 [facility] Drug form: SOLN, Q6H, Dosing Weight 86.364, kg, PRN Pain Score 7-10, Priority: NOW, Start date: 02/23/18 9:13:00 CDT, Duration: 30 day, Stop date: 03/25/18 9:12:00 CDTNotes: (Same as:MORPhine Sulfate) Triiodothyronine 5 microgram, 1 No Longer tab, Route: PO, Active 2017 [facility] Drug form: TAB, Daily, Dosing Weight 93.182, kg, Start date: 02/23/18 9:00:00 CDT, Duration: 30 day, Stop date: 03/24/18 9:00:00 CDTNotes: (Same as: Cytomel) Thyroxine 50 microgram, 1 No Longer tab, Route: PO, Active 2017 [facility] Drug form: TAB, Daily, Dosing Weight 93.182, kg, Start date: 02/23/18 9:00:00 CDT, Duration: 30 day, Stop date: 03/24/18 9:00:00 CDTNotes: Take 1 hour before or 2 hours after meal; Enteral feeds may interefere with the absorption of this medication.(Eddie e as:Levothroid, Synthroid) 3 ML Insulin 56 unit, 0.56 No Longer Glargine 100 mL, Route: Active 2017 [facility] UNT/ML Prefilled SUB-Q, Drug Syringe [Lantus] form: RAVINDER QAM, Dosing Weight 93.182, kg, Start date: 02/23/18 9:00:00 CDT, Duration: 30 day, Stop date: 03/24/18 9:00:00 CDTNotes: (Same as: Lantus) Do not hold insulin without contacting prescriber WASTE: F/P - Black; E - Municipal Trash Bin "single patient use only" Sodium Chloride 1,000 mL, Rate: No Longer 0.9% IV 1,000 mL 100 ml/hr, Active 2017 [facility] Infuse over: 10 hr, Route: IV, Dosing Weight 93.182 kg, Total Volume: 1,000, Start date: 02/22/18 16:59:00 CDT, Duration: 30 day, Stop date: 03/24/18 16:58:00 CDT, 2.1, m2 Saline Flush 0.9% 10 ml, Route: No Longer IVP, Drug Form: Active 2017 [facility] INJ, Dosing Weight 93.182, kg, PRN, PRN Line Flush, Start date: 02/22/18 16:59:00 CDT, Duration: 30 day, Stop date: 03/24/18 16:58:00 CDTNotes: (Same as: BD Posiflush) Insulin Lispro 2 unit, 0.02 No Longer mL, Route: Active 2018 [facility] SUB-Q, Drug form: SOLN, Bedtime, Dosing Weight 93.182, kg, PRN Blood Glucose Results, Start date: 02/22/18 14:35:00 CDT, Duration: 30 day, Stop date: 03/24/18 14:34:00 CDTNotes: (Same as: Humalog ) Roll in palms of hands gently; Do not shake `vigorously. "Single Patient Use Only " WASTE: F/P - Black; E - Municipal Trash Bin Stable for 28 days at room temperature. Expires in days from D ate Glucagon 1 mg, Route: No Longer IM, Drug form: Active 2018 [facility] PDR/INJ, PRN, Dosing Weight 93.182, kg, PRN Blood Glucose Results, Start date: 02/22/18 14:35:00 CDT, Duration: 30 day, Stop date: 03/24/18 14:34:00 CDT Dextrose 50% 25 gm, 50 mL, No Longer Syringe Route: IVP, Active 2017 [facility] Drug Form: INJ, Dosing Weight 93.182, kg, PRN, PRN Blood Glucose Results, Start date: 02/22/18 14:35:00 CDT, Duration: 30 day, Stop date: 03/24/18 14:34:00 CDT Losartan 100 mg, 2 tab, No Longer Route: PO, Drug Active 2017 [facility] form: TAB, Daily, Dosing Weight 93.182, kg, Priority: NOW, Start date: 02/22/18 14:33:00 CDT, Duration: 30 day, Stop date: 03/24/18 9:00:00 CDTNotes: (Same as: Sarita) Morphine 2 mg, Route: Inactive IVP, ONCE, 2017 [facility] Dosing Weight 93.182, kg, Start date: 02/22/18 14:12:00 CDT, Stop date: 02/22/18 14:12:00 CDT Lidocaine 0.05 1 patch, Route: No Longer MG/MG Transdermal TOP, Daily, Active 2018 [facility] Patch Drug form: FILM, Start date: 02/22/18 14:00:00 CDT, Duration: 30 day, Stop date: 03/24/18 9:00:00 CDTNotes: Apply only once for up to 12 hours in a 24-hour period (12 hours on and 12 hours off). (Same as: Lidoderm) "Remove old patch before application of new patch" Acetaminophen 325 1 tab, Route: No Longer MG / Hydrocodone PO, Drug Form: Active 2018 [facility] Bitartrate 10 MG TAB, Dosing Oral Tablet Weight 93.182, [Woodlyn 10/325] kg, Q4H, PRN Pain Score 1-3, Start date: 02/22/18 13:01:00 CDT, Duration: 30 day, Stop date: 03/24/18 13:00:00 CDTNotes: Do not exceed 4gm/day of acetaminophen. (Same as: [place]lyn 325/10) gabapentin 300 mg, 1 cap, No Longer Route: PO, Drug Active 2017 [facility] form: CAP, Q8H, Dosing Weight 93.182, kg, Priority: NOW, Start date: 02/22/18 13:00:00 CDT, Duration: 30 day, Stop date: 03/24/18 8:00:00 CDTNotes: (Same as: Neurontin) cefepime 1 gm, Route: Inactive IVPB, ONCE, 2017 [facility] Dosing Weight 93.182, kg, Priority: STAT, Start date: 02/22/18 8:33:00 CDT, Stop date: 02/22/18 8:33:00 CDT, ABX Indication: Pneumonia Vancomycin 1,750 mg, Inactive Route: IVPB, 2017 [facility] ONCE, Dosing Weight 93.182, kg, Priority: STAT, Start date: 02/22/18 8:33:00 CDT, Stop date: 02/22/18 8:33:00 CDT, ABX Indication: PneumoniaNotes: TIME CRITICAL MEDICATION (Same As: Vancocin) Infusion rate 2001 mg: infuse over 2.5 hours For adult patients only: Round to nearest 250 mg per Medical Staff approval MEDICATION WASTE Product Size: 1000 mg Product Wasted: ___ mg Zofran ODT 4 mg, 1 tab, Inactive Route: PO, Drug 2017 [facility] form: TABDIS, ONCE, Dosing Weight 93.182, kg, Priority: STAT, Start date: 02/22/18 7:30:00 CDT, Stop date: 02/22/18 7:30:00 CDTNotes: (Same as: Zofran ODT) Morphine 4 mg, 1 mL, Inactive Route: IVP, 2017 [facility] Drug form: SOLN, ONCE, Dosing Weight 93.182, kg, Priority: STAT, Start date: 02/22/18 7:30:00 CDT, Stop date: 02/22/18 7:30:00 CDTNotes: (Same as:MORPhine Sulfate) Morphine 1 mg, 0.25 mL, Inactive Route: IVP2017 [facility] Drug form: SOLN, Q4H, Dosing Weight 90.028, kg, PRN Pain Score 6-10, Start date: 02/19/18 14:07:00 CDT, Duration: 30 day, Stop date: 03/21/18 14:06:00 CDTNotes: (Same as:MORPhine Sulfate) Sodium Chloride 1,000 mL, Rate: Inactive 0.9% IV 1,000 mL 75 ml/hr, 2017 [facility] Infuse over: 13.3 hr, Route: IV, Dosing Weight 90.028 kg, Total Volume: 1,000, Start date: 02/19/18 11:18:00 CDT, Duration: 30 day, Stop date: 03/21/18 11:17:00 CDT, 2.06, m2 Kayexalate 15 gm, 60 mL, Inactive Route: PO, Drug 2017 [facility] form: SUSP, ONCE, Dosing Weight 90.028, kg, Start date: 02/19/18 11:04:00 CDT, Stop date: 02/19/18 11:04:00 CDTNotes: (sodium polystyrene sulfonate 15 gm/60 ml LICO) Shake well before use. (Same as: Kayexalate, SPS) Morphine 1 mg, 0.25 mL, Inactive Route: IVP2017 [facility] Drug form: SOLN, Q2H, Dosing Weight 90.028, kg, PRN Pain Score 6-10, Start date: 02/19/18 10:56:00 CDT, Duration: 30 day, Stop date: 03/21/18 10:55:00 CDTNotes: (Same as:MORPhine Sulfate) Aspirin 81 mg, 1 tab, Inactive Route: PO, Drug 2017 [facility] form: ECTAB, Daily, Dosing Weight 90.028, kg, Start date: 02/19/18 9:00:00 CDT, Duration: 30 day, Stop date: 03/20/18 9:00:00 CDTNotes: Do not crush or chew. (Same As: Ecotrin) cefuroxime + 1.5 gm, Route: Inactive sterile water 20 IVP, ABXQ8H, 2018 [facility] mL Start date: 02/18/18 22:00:00 CDT, Duration: 1 doses or times, Stop date: 02/18/18 22:00:00 CDTNotes: (Same As: Kefurox, Zinacef) MEDICATION WASTE Product Size: 1500 mg Product Wasted: __0_ mg Famotidine 20 mg, 1 tab, No Longer Route: PO, Drug Active 2017 [facility] form: TAB, Q12H, Dosing Weight 90.028, kg, Start date: 02/18/18 21:00:00 CDT, Duration: 30 day, Stop date: 03/20/18 9:00:00 CDTNotes: (Same as: Pepcid) ceFAZolin + 2 gm, Route: Inactive sterile water 20 IV, ABXQ8H, 2017 [facility] mL Start date: 02/18/18 20:00:00 CDT, Duration: 1 doses or times, Stop date: 02/18/18 20:00:00 CDT, ABX Indication: Surgical ProphylaxisNote s: (Same As: Ancef, Kefzol) MEDICATION WASTE Product Size: 1000 mg Product Wasted: ___ mg Docusate Sodium 100 mg, 1 cap, No Longer 100 MG Oral Route: PO, Drug Active 2017 [facility] Capsule form: CAP, BID, Dosing Weight 90.028, kg, Start date: 02/18/18 17:00:00 CDT, Duration: 30 day, Stop date: 03/20/18 9:00:00 CDTNotes: (Same as: Colace) (Do Not Crush) Cefazolin 1 gm, Route: Inactive IVPB, Drug 2017 [facility] form: INJ, Q8H, Dosing Weight 90.028, kg, Start date: 02/18/18 16:00:00 CDT, Duration: 1 doses or times, Stop date: 02/18/18 16:00:00 CDT, ABX Indication: Surgical Prophylaxis albuterol 1.25 mg, 3 mL, No Longer Route: NEB, Active 2017 [facility] Drug form: SOLN, Q8H, PRN Respiratory Protocol, Start date: 02/18/18 15:46:00 CDT, Duration: 30 day, Stop date: 03/20/18 15:45:00 CDTNotes: SEE RT DOCUMENTATION (Same as: Proventil) Saline Flush 0.9% 10 ml, Route: No Longer IVP, Drug Form: Active 2017 [facility] INJ, Dosing Weight 90.028, kg, PRN, PRN Line Flush, Start date: 02/18/18 15:17:00 CDT, Duration: 30 day, Stop date: 03/20/18 15:16:00 CDTNotes: (Same as: BD Posiflush) D5W 1/2NS + KCL 1,000 mL, Rate: No Longer 20mEq/L 1000ml 80 ml/hr, Active 2017 [facility] (Premix) 1,000 mL Infuse over: 12.5 hr, Route: IV, Dosing Weight 90.028 kg, Total Volume: 1,000, Start date: 02/18/18 15:17:00 CDT, Duration: 30 day, Stop date: 03/20/18 15:16:00 CDT, 2.06, [id number]: PREMIX IV - Do Not Alter WASTE: F/P - Sink; E - Municipal Trash Bin Demerol HCl 12.5 mg, 0.25 No Longer mL, Route: IM, Active 2017 [facility] Drug form: INJ, Q6H, Dosing Weight 90.028, kg, PRN Other -See Comment, Start date: 02/18/18 15:17:00 CDT, Duration: 4 day, Stop date: 02/22/18 15:16:00 CDTNotes: (Same As: Demerol) Xopenex 0.63 mg, Route: Inactive NEB, Q8H, 2017 [facility] Dosing Weight 90.028, kg, PRN Respiratory Protocol, Start date: 02/18/18 15:17:00 CDT, Duration: 30 day, Stop date: 03/20/18 15:16:00 CDT Dulcolax Laxative 5 mg, 1 tab, No Longer Route: PO, Drug Active 2017 [facility] form: ECTAB, Q24H, Dosing Weight 90.028, kg, PRN Constipation, Start date: 02/18/18 15:17:00 CDT, Duration: 30 day, Stop date: 03/20/18 15:16:00 CDTNotes: (Same As: Dulcolax, Correctol) (Do Not Crush) "Do Not Crush" Ondansetron 4 mg, 2 mL, No Longer Route: IVP, Active 2017 [facility] Drug form: INJ, Q6H, Dosing Weight 90.028, kg, PRN Nausea & Vomiting, Start date: 02/18/18 15:17:00 CDT, Duration: 30 day, Stop date: 03/20/18 15:16:00 CDTNotes: (Same as: Cynthia) MEDICATION WASTE Product Size: 4 mg Product Wasted: ___ mg Al hydroxide/Mg 30 ml, Route: No Longer hydroxide/simethi PO, Drug Form: Active 2017 [facility] cone 200 mg-200 SUSP, Dosing mg-20 mg/5 mL Weight 90.028, oral suspension kg, Q4H, PRN Indigestion, Start date: 02/18/18 15:17:00 CDT, Duration: 30 day, Stop date: 03/20/18 15:16:00 CDTNotes: (aluminum hydroxide-magne sium hyd-simethicone [phone]/5m l 30 ml ud LICO) Acetaminophen 325 1 tab, Route: No Longer MG / Hydrocodone PO, Drug Form: Active 2018 [facility] Bitartrate 5 MG TAB, Dosing Oral Tablet Weight 90.028, kg, Q4H, PRN Pain Score 4-6, Start date: 02/18/18 15:17:00 CDT, Duration: 30 day, Stop date: 03/20/18 15:16:00 CDTNotes: (Same as: [place]lyn 325/5) Do not exceed 4gm/day of acetaminophen. Acetaminophen 650 mg, 2 tab, Inactive 05/07/ MH Route: PO, Drug 2017 [facility] form: TAB, Q4H, Dosing Weight 90.028, kg, PRN Pain 1-3/Temp > 100.4 F, Start date: 02/18/18 15:17:00 CDT, Duration: 30 day, Stop date: 03/20/18 15:16:00 CDTNotes: Do not exceed 4 gm/day. (Same as: Tylenol) acetaminophen-cod 2 tab, Route: Inactive eine #3 PO, Drug Form: 2017 [facility] TAB, Dosing Weight 90.028, kg, Q4H, PRN Pain Score 4-6, Start date: 02/18/18 15:17:00 CDT, Duration: 30 day, Stop date: 03/20/18 15:16:00 CDTNotes: Do not exceed 4gm/day of acetaminophen. (Same as: Tylenol with Codeine # 3) ePHEDrine (ANES) Route: IV, Drug Inactive form: 2017, Stop date: 02/18/18 15:11:00 CDT glycopyrrolate Route: IV, Drug Inactive MH (ANES) form: 2017, Stop date: 02/18/18 15:11:00 CDT dexamethasone Route: IV, Drug Inactive MH (ANES) form: 2017, Stop date: 02/18/18 15:11:00 CDT neostigmine Route: IV, Drug Inactive MH (ANES) form: 2017, Stop date: 02/18/18 15:11:00 CDT flumazenil (ANES) Route: IV, Drug Inactive 02/18/ MH form: 2017, Stop date: 02/18/18 15:11:00 CDT phenylephrine Route: IV, Drug Inactive 02/18/ MH (ANES) form: 2017, Stop date: 02/18/18 15:08:00 CDT cefuroxime (ANES) Route: IV, Drug Inactive MH form: 2017, Stop date: 02/18/18 15:03:00 CDT propofol (ANES) Route: IV, Drug Inactive form: INJ, 2017 [facility] ONCE, Stop date: 02/18/18 14:53:00 CDT fentaNYL (ANES) Route: IV, Drug Inactive form: INJ, 2017 [facility] ONCE, Stop date: 02/18/18 14:48:00 CDT lidocaine (ANES) Route: IV, Drug Inactive form: INJ, 2017 [facility] ONCE, Stop date: 02/18/18 14:48:00 CDT midazolam (ANES) Route: IV, Drug Inactive form: SOLN, 2017 [facility] ONCE, Stop date: 02/18/18 14:48:00 CDT Fentanyl 50 microgram, 1 Inactive mL, Route: IV, 2017 [facility] Drug form: INJ, Q10Min, Dosing Weight 90.028, kg, PRN Pain Score 4-6, Start date: 02/18/18 14:42:00 CDT, Duration: 3 doses or times, Stop date: Limited # of timesNotes: (Same as: Sublimaze) Preservative free. Naloxone 0.4 mg, 1 mL, Inactive Route: IVP2017 [facility] Drug form: INJ, PRN, Dosing Weight 90.028, kg, PRN Narcotic Reversal, Start date: 02/18/18 14:42:00 CDT, Duration: 30 day, Stop date: 03/20/18 14:41:00 CDTNotes: Same as Narcan Flumazenil 0.2 mg, 2 mL, Inactive Route: IVP2017 [facility] Drug form: INJ, PRN, Dosing Weight 90.028, kg, PRN Benzodiazepine Reversal, Initial dose, Start date: 02/18/18 14:42:00 CDT, Duration: 30 day, Stop date: 03/20/18 14:41:00 CDTNotes: (Same as: Romazicon) Hydromorphone 0.5 mg, 0.25 Inactive mL, Route: IVP2017 [facility] Drug form: INJ, Q5Min, Dosing Weight 90.028, kg, PRN Pain Score 7-10, Start date: 02/18/18 14:42:00 CDT, Duration: 4 doses or times, Stop date: Limited # of timesNotes: Same as Dilaudid Morphine 2 mg, 0.5 mL, Inactive Route: IVP2017 [facility] Drug form: SOLN, Q5Min, Dosing Weight 90.028, kg, PRN Pain Score 4-6, Start date: 02/18/18 14:42:00 CDT, Duration: 5 doses or times, Stop date: Limited # of timesNotes: (Same as:MORPhine Sulfate) Acetaminophen 1,000 mg, 100 Inactive mL, Route: IV, 2017 [facility] Drug form: INJ, ONCE, Dosing Weight 90.028, kg, PRN Pain Score 1-3, Start date: 02/18/18 14:42:00 CDTNotes: Infuse over 15 minutes Do not exceed 4gm/day of acetaminophen MEDICATION WASTE Product Size: 1000 mg Product Wasted: ___ mg Ondansetron 4 mg, 2 mL, Inactive Route: IVP2017 [facility] Drug form: INJ, ONCE, Dosing Weight 90.028, kg, PRN Nausea & Vomiting, Start date: 02/18/18 14:42:00 CDTNotes: (Same as: Zofran) MEDICATION WASTE Product Size: 4 mg Product Wasted: ___ mg Promethazine 6.25 mg, 0.25 Inactive mL, Route: IM, 2017 [facility] Drug form: INJ, ONCE, Dosing Weight 90.028, kg, PRN Nausea & Vomiting, Start date: 02/18/18 14:42:00 CDTNotes: Do not give IV push. (Same as: Phenergan) Dexamethasone 4 mg, 1 mL, Inactive Route: IVP2017 [facility] Drug form: INJ, ONCE, Dosing Weight 90.028, kg, PRN Nausea & Vomiting, Start date: 02/18/18 14:42:00 CDTNotes: Concentration: 4mg/ml Meperidine 12.5 mg, 0.25 Inactive mL, Route: IVP2017 [facility] Drug form: INJ, Q30Min, Dosing Weight 90.028, kg, PRN Other -See Comment, For shivering, Start date: 02/18/18 14:42:00 CDT, Duration: 2 doses or times, Stop date: Limited # of timesNotes: (Same As: Demerol) Diphenhydramine 12.5 mg, 0.25 Inactive mL, Route: IVP, 2017 [facility] Drug form: INJ, Q6H, Dosing Weight 90.028, kg, PRN Itching, Start date: 02/18/18 14:42:00 CDT, Duration: 30 day, Stop date: 03/20/18 14:41:00 CDTNotes: (Same as: Benadryl) Albuterol 0.83 2.49 mg, 3 mL, Inactive MG/ML Inhalant Route: NEB, 2017 [facility] Solution Drug form: SOLN, Q20Min, Dosing Weight 90.028, kg, PRN Wheezing, Priority: STAT, Start date: 02/18/18 14:42:00 CDT, Duration: 30 day, Stop date: 03/20/18 14:41:00 CDTNotes: SEE RT DOCUMENTATION (Same as: Proventil) Hydralazine 10 mg, 0.5 mL, Inactive Route: IVP2017 [facility] Drug form: INJ, Q20Min, Dosing Weight 90.028, kg, PRN Elevated BP, Start date: 02/18/18 14:42:00 CDT, Duration: 2 doses or times, Stop date: Limited # of timesNotes: (Same as: Apresoline) Push over 5 minutes vancomycin (ANES) Route: IV, Drug Inactive 1.5 gm form: INJ, 2017 [facility] Start date: 02/18/18 14:18:00 CDT, Stop date: 02/18/18 15:18:00 CDT Isolyte S PH 7.4 Route: IV, Inactive (ANES) 1000 mL Total Volume: 2017 [facility] 1,000, Start date: 02/18/18 14:16:00 CDT, Stop date: 02/18/18 15:16:00 CDT Lidocaine 0.5 mL, Route: No Longer Hydrochloride 10 INTRADERM, Drug Active 2017 [facility] MG/ML Injectable Form: INJ, Solution Dosing Weight 90.028, kg, ONCALL, Start date: 02/18/18 14:00:00 CDT, Duration: 1 doses or timesNotes: Preservative free. (Same as: Xylocaine MPF) Ancef + sterile 1 gm, Route: Inactive water 10 mL IVP, ONCE, 2017 [facility] Dosing Weight 90.028, kg, Start date: 02/18/18 2:39:00 CDT, Stop date: 02/18/18 2:39:00 CDT, ABX Indication: Surgical ProphylaxisNote s: (Same As: Ancef, Kefzol) MEDICATION WASTE Product Size: 1000 mg Product Wasted: ___ mg Naproxen 250 mg, 1 tab, No Longer Route: PO, Drug Active 2017 [facility] form: TAB, BID, Dosing Weight 90.028, kg, PRN Pain Score 1-3, Start date: 02/17/18 18:41:00 CDT, Duration: 30 day, Stop date: 03/19/18 18:40:00 CDTNotes: (Same as: Naprosyn) Take with food. Humalog 5 unit, 0.05 No Longer mL, Route: Active 2017 [facility] SUB-Q, Drug form: SOLN, TID-Before Meals, Dosing Weight 90.028, kg, Start date: 02/17/18 13:30:00 CDT, Duration: 30 day, Stop date: 03/19/18 11:30:00 CDTNotes: (Same as: Humalog ) Roll in palms of hands gently; Do not shake `vigorously. "Single Patient Use Only " WASTE: F/P - Black; E - Municipal Trash Bin Stable for 28 days at room temperature. Expires in days from D ate Insulin Lispro 5 unit, 0.05 Inactive mL, Route: 2017 [facility] SUB-Q, Drug form: SOLN, TID-Before Meals, Dosing Weight 90.028, kg, Start date: 02/17/18 7:30:00 CDT, Stop date: 03/18/18 16:30:00 CDTNotes: (Same as: Humalog ) Roll in palms of hands gently; Do not shake `vigorously. "Single Patient Use Only " WASTE: F/P - Black; E - Municipal Trash Bin Stable for 28 days at room temperature. Expires in days from D ate Tylenol 325 mg, 1 tab, No Longer Route: PO, Drug Active 2017 [facility] form: TAB, Q6H, Dosing Weight 90.028, kg, PRN Pain Score 1-5, Start date: 02/16/18 18:00:00 CDT, Duration: 30 day, Stop date: 03/18/18 12:00:00 CDTNotes: Do not exceed 4 gm/day. (Same as: Tylenol) Ibuprofen 400 mg, 1 tab, No Longer Route: PO, Drug Active 2017 [facility] form: TAB, Q4H, Dosing Weight 90.028, kg, PRN Pain Score 4-6, Start date: 02/16/18 16:57:00 CDT, Duration: 30 day, Stop date: 03/18/18 16:56:00 CDT, Pain Score 3-5Notes: (Same as: Motrin) "Do Not Crush" Give with food. Morphine 1 mg, 0.25 mL, No Longer Route: IVP, Active 2017 [facility] Drug form: SOLN, Q6H, Dosing Weight 88.636, kg, PRN Pain Score 7-10, Start date: 02/15/18 9:16:00 CDT, Duration: 30 day, Stop date: 03/17/18 9:15:00 CDTNotes: (Same as:MORPhine Sulfate) Naproxen 250 mg, 1 tab, No Longer Route: PO, Drug Active 2017 [facility] form: TAB, BID, Dosing Weight 90.028, kg, Start date: 02/15/18 9:15:00 CDT, Duration: 30 day, Stop date: 03/17/18 9:00:00 CDTNotes: (Same as: Naprosyn) Take with food. Tylenol 325 mg, 1 tab, No Longer Route: PO, Drug Active 2017 [facility] form: TAB, Q4H, Dosing Weight 90.028, kg, PRN Pain Score 1-5, Start date: 02/15/18 9:13:00 CDT, Duration: 30 day, Stop date: 03/17/18 9:12:00 CDTNotes: Do not exceed 4 gm/day. (Same as: Tylenol) Acetaminophen 325 1 tab, Route: Inactive MG / Hydrocodone PO, Drug Form: 2017 [facility] Bitartrate 5 MG TAB, Dosing Oral Tablet Weight 90.028, [[place] 5/325] kg, Q4H, PRN Pain Score 1-5, Start date: 02/14/18 11:11:00 CDT, Duration: 30 day, Stop date: 03/16/18 11:10:00 CDTNotes: (Same as: [place] 325/5) Do not exceed 4gm/day of acetaminophen. Zofran ODT 4 mg, 1 tab, No Longer Route: PO, Drug Active 2017 [facility] form: TABDIS, Q8H, Dosing Weight 90.028, kg, PRN Nausea, Start date: 02/14/18 11:08:00 CDT, Duration: 30 day, Stop date: 03/16/18 11:07:00 CDTNotes: (Same as: Zofran ODT) Docusate Sodium 100 mg, 1 cap, No Longer 100 MG Oral Route: PO, Drug Active 2017 [facility] Capsule [Colace] form: CAP, BID, Dosing Weight 90.028, kg, PRN Constipation, Start date: 02/14/18 11:08:00 CDT, Duration: 30 day, Stop date: 03/16/18 11:07:00 CDTNotes: (Same as: Colace) (Do Not Crush) Losartan 50 mg, 1 tab, No Longer Route: PO, Drug Active 2017 [facility] form: TAB, Daily, Dosing Weight 88.636, kg, Start date: 02/14/18 9:00:00 CDT, Duration: 30 day, Stop date: 03/15/18 9:00:00 CDTNotes: (Same as: Cozaar) 3 ML Insulin 56 unit, 0.56 No Longer Glargine 100 mL, Route: Active 2017 [facility] UNT/ML Prefilled SUB-Q, Drug Syringe [Lantus] form: ASHU CASTELLON, Dosing Weight 88.636, kg, Start date: 02/14/18 9:00:00 CDT, Duration: 30 day, Stop date: 03/15/18 9:00:00 CDTNotes: (Same as: Lantus) Do not hold insulin without contacting prescriber WASTE: F/P - Black; E - [facility] "single patient use only" Triiodothyronine 5 microgram, 1 No Longer tab, Route: PO, 2017 [facility] Drug form: TAB, Daily, Dosing Weight 88.636, kg, Start date: 02/14/18 9:00:00 CDT, Duration: 30 day, Stop date: 03/15/18 9:00:00 CDTNotes: (Same as: Cytomel) Thyroxine 50 microgram, 1 No Longer tab, Route: PO, Active 2017 [facility] Drug form: TAB, Daily, Dosing Weight 88.636, kg, Start date: 02/14/18 9:00:00 CDT, Duration: 30 day, Stop date: 03/15/18 9:00:00 CDTNotes: Take 1 hour before or 2 hours after meal; Enteral feeds may interefere with the absorption of this medication.(Eddie e as:Levothroid, Synthroid) Trazodone 25 mg, 0.5 tab, No Longer Route: PO, Drug Active 2017 [facility] form: TAB, Bedtime, Dosing Weight 88.636, kg, Start date: 02/13/18 21:00:00 CDT, Duration: 7 day, Stop date: 02/19/18 21:00:00 CDTNotes: (Same As: Desyrel) Ketorolac 7.5 mg, 0.5 mL, No Longer Route: IVP, Active 2017 [facility] Drug form: INJ, Q6H, Dosing Weight 88.636, kg, Start date: 02/13/18 18:00:00 CDT, Duration: 4 day, Stop date: 02/17/18 12:00:00 CDTNotes: (Same as:Toradol) IV bolus must be given >15 seconds. Give IM administration slowly and deeply into the muscle. Not for use > 4 days. Ketorolac 7.5 mg, Route: Inactive Tromethamine 10 PO, Drug form: 2018 [facility] Oral Tablet TAB, QID, Dosing Weight 88.636, kg, Start date: 02/13/18 17:00:00 CDT, Duration: 4 day, Stop date: 02/17/18 13:00:00 CDT ketOROLAC 5 mg, 0.5 tab, Inactive Route: PO, Drug 2017 [facility] form: TAB, QID, Start date: 02/13/18 17:00:00 CDT, Duration: 4 day, Stop date: 02/17/18 13:00:00 CDTNotes: Not for use > 4 days. Give with food. (Same as:Toradol) Ketorolac 7.5 mg, 0.5 mL, Inactive Route: IVP, 2017 [facility] Drug form: INJ, ONCE, Dosing Weight 88.636, kg, Start date: 02/13/18 16:17:00 CDT, Stop date: 02/13/18 16:17:00 CDTNotes: (Same as:Toradol) IV bolus must be given >15 seconds. Give IM administration slowly and deeply into the muscle. Not for use > 4 days. Hydralazine 10 mg, 0.5 mL, No Longer Route: IVP, Active 2017 [facility] Drug form: INJ, Q6H, Dosing Weight 88.636, kg, PRN Hypertension, Start date: 02/13/18 15:32:00 CDT, Duration: 30 day, Stop date: 03/15/18 15:31:00 CDTNotes: (Same as: Apresoline) Push over 5 minutes Ketorolac 10 mg, 1 tab, Inactive Tromethamine 10 Route: PO, Drug 2017 [facility] Oral Tablet form: TAB, QID, Dosing Weight 88.636, kg, Start date: 02/13/18 14:44:00 CDT, Duration: 4 day, Stop date: 02/17/18 13:00:00 CDTNotes: Not for use > 4 days. Give with food. (Same as:Toradol) losartan 100 mg 100 mg=1 tab, On Hold oral tablet PO, Daily, # 30 2017 [facility] tab, 0 Refill(s) 3 ML Insulin 56 unit, SUB-Q, On Hold Glargine 100 QAM 2018 [facility] UNT/ML Prefilled Syringe [Lantus] levothyroxine 50 50 microgram=1 On Hold mcg (0.05 mg) tab, PO, Daily, 2017 [facility] oral tablet # 30 tab, 0 Refill(s) liothyronine 5 5 microgram=1 On Hold mcg oral tablet tab, PO, Daily, 2017 [facility] # 30 tab, 0 Refill(s) gabapentin 100 MG 100 mg=1 cap, On Hold Oral Capsule PO, TID 2017 [facility] Dialyvite 3000 1 tab, PO, On Hold oral tablet Daily, 0 2017 [facility] Refill(s) Fenofibrate 48 MG =1 cap, PO, On Hold Oral Tablet Daily 2017 [facility] Hydralazine 50 mg=1 tab, No Longer Hydrochloride 50 PO, BID, 0 Active 2017 [facility] MG Oral Tablet Refill(s) Glucagon 1 mg, Route: No Longer IM, Drug form: Active 2017 [facility] PDR/INJ, PRN, Dosing Weight 88.636, kg, PRN Blood Glucose Results, Start date: 02/13/18 14:31:00 CDT, Duration: 30 day, Stop date: 03/15/18 14:30:00 CDT Dextrose 50% 25 gm, 50 mL, No Longer Syringe Route: IVP, Active 2017 [facility] Drug Form: INJ, Dosing Weight 88.636, kg, PRN, PRN Blood Glucose Results, Start date: 02/13/18 14:31:00 CDT, Duration: 30 day, Stop date: 03/15/18 14:30:00 CDT Insulin Lispro 2 unit, 0.02 No Longer mL, Route: Active 2017 [facility] SUB-Q, Drug form: SOLN, TID-Before Meals, Dosing Weight 88.636, kg, PRN Blood Glucose Results, Start date: 02/13/18 14:31:00 CDT, Duration: 30 day, Stop date: 03/15/18 14:30:00 CDTNotes: (Same as: Humalog ) Roll in palms of hands gently; Do not shake `vigorously. "Single Patient Use Only " WASTE: F/P - Black; E - [facility] Stable for 28 days at room temperature. Expires in days from D ate Ondansetron 4 mg, 2 mL, No Longer Route: IVP, [facility] 2017 [facility] Drug form: INJ, Q6H, Dosing Weight 88.636, kg, PRN Nausea & Vomiting, Start date: 02/13/18 14:29:00 CDT, Duration: 30 day, Stop date: 03/15/18 14:28:00 CDTNotes: (Same as: Zofran) MEDICATION WASTE Product Size: 4 mg Product Wasted: ___ mg Morphine 1 mg, 0.25 mL, No Longer Route: IVP, Active 2017 [facility] Drug form: SOLN, Q4H, Dosing Weight 88.636, kg, PRN Pain Score 7-10, Start date: 02/13/18 14:29:00 CDT, Stop date: 03/15/18 14:28:00 CDTNotes: (Same as:MORPhine Sulfate) normal saline 1,000 mL, Rate: No Longer 0.9% IV 1,000 mL 75 ml/hr, Active 2017 [facility] Infuse over: 13.3 hr, Route: IV, Dosing Weight 88.636 kg, Total Volume: 1,000, Start date: 02/13/18 14:26:00 CDT, Duration: 30 day, Stop date: 03/15/18 14:25:00 CDT, 2.03, m2 Trazodone 25 mg, 0.5 tab, Inactive Route: PO, Drug 2017 [facility] form: TAB, Bedtime, Dosing Weight 88.636, kg, PRN Insomnia, Start date: 02/13/18 14:26:00 CDT, Duration: 7 day, Stop date: 02/20/18 14:25:00 CDTNotes: (Same As: Desyrel) Zofran ODT 4 mg, 1 tab, Inactive Route: PO, Drug 2017 [facility] form: TABDIS, ONCE, Dosing Weight 88.636, kg, Priority: STAT, Start date: 02/13/18 12:51:00 CDT, Stop date: 02/13/18 12:51:00 CDTNotes: (Same as: Zofran ODT) Morphine 2 mg, 0.5 mL, Inactive Route: IVP, 2017 [facility] Drug form: SOLN, ONCE, Dosing Weight 88.636, kg, Priority: STAT, Start date: 02/13/18 12:50:00 CDT, Stop date: 02/13/18 12:50:00 CDTNotes: (Same as:MORPhine Sulfate) Allergies, Adverse Reactions, Alerts Substance Category Reaction Severity Reaction Status Date Comments Source type Reported metoprolol Assertion Drug allergy Active [facility] Lopressor Assertion Drug allergy Active [facility] Betapace Assertion Drug allergy Active [facility] Toprol-XL Assertion Drug allergy Active [facility] metFORMIN Assertion vomiting Drug Active intolerance [facility] Immunizations Immunization Date Given Site Status Last Updated Comments Source Results Order Name Results Value Reference Date Interpretation Comments Source Range HEMATOLOGY Sed Rate 24 mm/h 0 - 20 02/23 [facility] CHEM PANEL BUN 28 mg/dL 7 - 22 02/23 [facility] CHEM PANEL Glucose Lvl 195 mg/dL 70 - 99 02/23 [facility] CHEM PANEL eGFR 54 02/23 Result Comment: The eGFR is calculated using the CKD-EPI formula. In most young, healthy individuals the eGFR will be >90 mL/ min/1.73m2. The eGFR declines with age. An eGFR of 60-89 may be normal in mL/min/1. some populations, particularly the elderly, for whom the CKD-EPI formula has not been extensively validated. Use of the eGFR is not recommended in the following populations: [facility] 3m2 Individuals with unstable creatinine concentrations, including patients and those with serious co-morbid conditions. Patients with extremes in muscle mass or diet. The data above are obtained from the National Kidney Disease Education Program (NKDEP) which additionally recommends that when the eGFR is used in patients with extremes of body mass index for purposes of drug dosing, the eGFR should be multiplied by the estimated BMI. CHEM PANEL Chloride Lvl 109 meq/L 95 - 109 02/23 [facility] CHEM PANEL Calcium Lvl 9.7 mg/dL 8.5 - 10.5 02/23 [facility] CHEM PANEL CO2 29 meq/L 24 - 32 05/ /2017 [facility] CHEM PANEL Potassium 4.6 meq/L 3.5 - 5.1 / Lvl /2017 [facility] CHEM PANEL Creatinine 1.00 mg/dL 0.50 - 05 MH Lvl 1.40 [facility] CHEM PANEL Sodium Lvl 144 meq/L 135 - 145 02/23 [facility] CHEM PANEL AGAP 10.6 meq/L 10.0 - 05 MH 20.0 [facility] CHEM PANEL Procalcitoni null 0.00 - 05 n Lvl 0.10 [facility] HEMATOLOGY D-Dimer 1.02 ug/mL 02/22 FEU [facility] HEMATOLOGY PT 14.6 s 12.0 - 02/22 MH 14.7 [facility] HEMATOLOGY INR 1.14 0.85 - 02/22 MH 1.17 [facility] HEMATOLOGY PTT 31.0 s 22.9 - 02/22 MH 35.8 /2017 [facility] CARDIAC Troponin-I null 0.00 - 02/22 ENZYMES 0.40 [facility] CARDIAC Total CK 73 unit/L 12 - 191 02/22 ENZYMES /2017 [facility] CHEM PANEL Lactic Acid 0.8 mMol/L 0.5 - 2.2 02/22 Lvl [facility] ELECTROLYT AGAP 12.9 meq/L 10.0 - 02/22 ES 20.0 [facility] ELECTROLYT eGFR 48 02/22 Result Comment: The eGFR is calculated using the CKD-EPI formula. In most young, healthy individuals the eGFR will be >90 mL/ min/1.73m2. The eGFR declines with age. An eGFR of 60-89 may be normal in ES mL/min/1. some populations, particularly the elderly, for whom the CKD-EPI formula has not been extensively validated. Use of the eGFR is not recommended in the following populations: [facility] 3m2 Individuals with unstable creatinine concentrations, including patients and those with serious co-morbid conditions. Patients with extremes in muscle mass or diet. The data above are obtained from the National Kidney Disease Education Program (NKDEP) which additionally recommends that when the eGFR is used in patients with extremes of body mass index for purposes of drug dosing, the eGFR should be multiplied by the estimated BMI. ELECTROLYT Potassium 3.9 meq/L 3.5 - 5.1 02/22 ES Lvl /2017 [facility] ELECTROLYT Sodium Lvl 139 meq/L 135 - 145 02/22 ES [facility] ELECTROLYT Creatinine 1.10 mg/dL 0.50 - 02/22 ES Lvl 1.40 [facility] ELECTROLYT BUN 30 mg/dL 7 - 22 02/22 ES [facility] ELECTROLYT Glucose Lvl 160 mg/dL 70 - 99 02/22 [facility] ELECTROLYT Calcium Lvl 9.9 mg/dL 8.5 - 10.5 02/22 ES [facility] ELECTROLYT CO2 23 meq/L 24 - 32 02/22 ES [facility] ELECTROLYT Chloride Lvl 107 meq/L 95 - 109 02/22 ES [facility] HEMATOLOGY MPV 7.4 fL 7.4 - 10.4 02/22 [facility] HEMATOLOGY Hct 36.3 % 36.0 - 02/22 48.0 [facility] HEMATOLOGY MCV 83.5 fL 80.0 - 02/22 98.0 [facility] HEMATOLOGY Hgb 11.5 g/dL 12.0 - 02/22 16.0 [facility] HEMATOLOGY RBC 4.34 M/CMM 4.20 - 02/22 5.40 /2017 [facility] HEMATOLOGY RDW 15.8 % 11.5 - 02/22 14.5 [facility] HEMATOLOGY Platelet 272 K/CMM 133 - 450 02/22 [facility] HEMATOLOGY MCH 26.5 pg 27.0 - 02/22 31.0 [facility] HEMATOLOGY MCHC 31.7 g/dL 32.0 - 02/22 36.0 [facility] HEMATOLOGY WBC 12.7 K/CMM 3.7 - 10.4 02/22 [facility] HEMATOLOGY Eosinophils 0.4 K/CMM 0.0 - 0.5 02/22 MH # /2017 [facility] HEMATOLOGY Monocytes # 1.3 K/CMM 0.0 - 0.8 02/22 [facility] HEMATOLOGY Basophils # 0.1 K/CMM 0.0 - 0.2 02/22 [facility] HEMATOLOGY Segs-Bands # 7.1 K/CMM 1.5 - 8.1 02/22 [facility] HEMATOLOGY Lymphocytes 3.9 K/CMM 1.0 - 5.5 02/22 # /2017 [facility] HEMATOLOGY Eosinophils 2.8 % 0.0 - 4.0 02/22 [facility] HEMATOLOGY Monocytes 9.9 % 2.0 - 12.0 02/22 [facility] HEMATOLOGY Basophils 0.4 % 0.0 - 1.0 02/22 [facility] HEMATOLOGY Segs 56.2 % 45.0 - 02/22 MH 75.0 [facility] HEMATOLOGY Lymphocytes 30.7 % 20.0 - 02/22 MH 40.0 [facility] Chest Chest 1view Clinical Indication: L chest pain s/p removal of sternotomy wires 02/22 - 1view DX DX /2017 - [facility] Comparison: February 18, 2018 Read by: Ananda May MD Dictated Date/time: 02/22/18 08:05 FINDINGS: Electronically Signed by: Ananda May MD 02/22/18 08:06 FINAL REPORT The frontal chest radiograph shows decreased lung volumes. Hazy opacification remains within the left lower lobe representing atelectasis or pneumonia. The cardiomediastinal contours are normal for the age of the patient with aortic tortuosity. There are fragments of sternotomy wires again noted within the mid chest and lower thorax. There are degenerative changes in the spine and shoulders. IMPRESSION: Underinflation with left lower lobe atelectasis versus pneumonia. SL: [id number] CHEM PANEL eGFR 36 02/19 Result Comment: The eGFR is calculated using the CKD-EPI formula. In most young, healthy individuals the eGFR will be >90 mL/ min/1.73m2. The eGFR declines with age. An eGFR of 60-89 may be normal in mL/min/1. some populations, particularly the elderly, for whom the CKD-EPI formula has not been extensively validated. Use of the eGFR is not recommended in the following populations: [facility] 3m2 Individuals with unstable creatinine concentrations, including patients and those with serious co-morbid conditions. Patients with extremes in muscle mass or diet. The data above are obtained from the National Kidney Disease Education Program (NKDEP) which additionally recommends that when the eGFR is used in patients with extremes of body mass index for purposes of drug dosing, the eGFR should be multiplied by the estimated BMI. CHEM PANEL CO2 20 meq/L 24 - 32 02/19 [facility] CHEM PANEL Calcium Lvl 9.3 mg/dL 8.5 - 10.5 02/19 [facility] CHEM PANEL Potassium 5.5 meq/L 3.5 - 5.1 / MH Lvl /2017 [facility] CHEM PANEL Chloride Lvl 105 meq/L 95 - 109 05 [facility] CHEM PANEL AGAP 14.5 meq/L 10.0 - 02/19 MH 20.0 [facility] CHEM PANEL Sodium Lvl 134 meq/L 135 - 145 05 [facility] CHEM PANEL Creatinine 1.40 mg/dL 0.50 - 05 MH Lvl 1.40 /2017 [facility] CHEM PANEL BUN 29 mg/dL 7 - 22 02/19 [facility] CHEM PANEL Glucose Lvl 325 mg/dL 70 - 99 02/19 [facility] HEMATOLOGY RBC Morph Normal 02/19 [facility] (02/19/18 6:40 AM) HEMATOLOGY Monocytes 5.3 % 2.0 - 12.0 02/19 [facility] HEMATOLOGY Basophils 0.3 % 0.0 - 1.0 02/19 [facility] HEMATOLOGY Lymphocytes 9.1 % 20.0 - 02/19 40.0 [facility] HEMATOLOGY Segs 85.3 % 45.0 - 02/19 75.0 [facility] HEMATOLOGY Plt Morph Normal 02/19 [facility] (02/19/18 6:40 AM) HEMATOLOGY Basophils # 0.1 K/CMM 0.0 - 0.2 02/19 [facility] HEMATOLOGY Segs-Bands # 13.4 K/CMM 1.5 - 8.1 02/19 [facility] HEMATOLOGY Monocytes # 0.8 K/CMM 0.0 - 0.8 02/19 [facility] HEMATOLOGY Lymphocytes 1.4 K/CMM 1.0 - 5.5 02/19 MH /2017 [facility] HEMATOLOGY WBC 15.7 K/CMM 3.7 - 10.4 02/19 [facility] HEMATOLOGY Hct 34.1 % 36.0 - 02/19 48.0 [facility] HEMATOLOGY Hgb 11.4 g/dL 12.0 - 05/ MH 16.0 /2017 [facility] HEMATOLOGY RBC 4.12 M/CMM 4.20 - 05/ MH 5.40 [facility] HEMATOLOGY MCHC 33.4 g/dL 32.0 - 05/ MH 36.0 [facility] HEMATOLOGY RDW 15.7 % 11.5 - 05/08 MH 14.5 [facility] HEMATOLOGY MCH 27.6 pg 27.0 - 02/19 31.0 [facility] HEMATOLOGY Platelet 204 K/CMM 133 - 450 02/19 [facility] HEMATOLOGY MCV 82.6 fL 80.0 - 02/19 98.0 [facility] HEMATOLOGY MPV 7.6 fL 7.4 - 10.4 02/19 [facility] Chest Chest 1view Clinical Indication: - post op; 02/18 - 1view DX DX - [facility] Comparison: 02/13/2018 Read by: Christie Parish MD Dictated Date/time: 02/18/18 16:05 Electronically Signed by: Christie Parish MD 02/18/18 16:06 FINAL REPORT Technique: X-ray chest frontal projection FINDINGS: There are low lung volumes. There is accentuation of vascular structures. The patient is status post valve replacement. The mediastinum and naveed are unremarkable. Postsurgical changes are noted in the r ight shoulder joint. The patient is status post median sternotomy. IMPRESSION: Lower lung volumes. No acute abnormality. SL: OVI BLOOD BANK ABO/Rh A NEG 02/18 RESULTS /2017 [facility] BLOOD BANK Antibody Negative 02/18 RESULTS Scrn [facility] (02/18/18 5:00 AM) CHEM PANEL eGFR 36 02/18 Result Comment: The eGFR is calculated using the CKD-EPI formula. In most young, healthy individuals the eGFR will be >90 mL/ min/1.73m2. The eGFR declines with age. An eGFR of 60-89 may be normal in mL/min/1. some populations, particularly the elderly, for whom the CKD-EPI formula has not been extensively validated. Use of the eGFR is not recommended in the following populations: [facility] 3m2 Individuals with unstable creatinine concentrations, including patients and those with serious co-morbid conditions. Patients with extremes in muscle mass or diet. The data above are obtained from the National Kidney Disease Education Program (NKDEP) which additionally recommends that when the eGFR is used in patients with extremes of body mass index for purposes of drug dosing, the eGFR should be multiplied by the estimated BMI. CHEM PANEL AGAP 9.3 meq/L 10.0 - 02/18 20. [facility] CHEM PANEL Calcium Lvl 9.7 mg/dL 8.5 - 10.5 02/18 [facility] CHEM PANEL Chloride Lvl 108 meq/L 95 - 109 02/18 [facility] CHEM PANEL CO2 28 meq/L 24 - 32 02/18 [facility] CHEM PANEL Potassium 4.3 meq/L 3.5 - 5.1 02/18 MH Lvl /2017 [facility] CHEM PANEL BUN 30 mg/dL 7 - 22 02/18 [facility] CHEM PANEL Glucose Lvl 121 mg/dL 70 - 99 02/18 [facility] CHEM PANEL Creatinine 1.40 mg/dL 0.50 - 05 MH Lvl 1.40 /2017 [facility] CHEM PANEL Sodium Lvl 141 meq/L 135 - 145 02/18 [facility] HEMATOLOGY Eosinophils 0.4 K/CMM 0.0 - 0.5 02/18 [facility] HEMATOLOGY Basophils # 0.1 K/CMM 0.0 - 0.2 02/18 [facility] HEMATOLOGY Lymphocytes 24.1 % 20.0 - 02/18 40.0 [facility] HEMATOLOGY Segs 64.4 % 45.0 - 02/18 75.0 [facility] HEMATOLOGY Monocytes 7.4 % 2.0 - 12.0 02/18 [facility] HEMATOLOGY Lymphocytes 2.7 K/CMM 1.0 - 5.5 02/18 [facility] HEMATOLOGY Monocytes # 0.8 K/CMM 0.0 - 0.8 02/18 [facility] HEMATOLOGY Eosinophils 3.5 % 0.0 - 4.0 02/18 [facility] HEMATOLOGY Segs-Bands # 7.1 K/CMM 1.5 - 8.1 02/18 [facility] HEMATOLOGY Basophils 0.6 % 0.0 - 1.0 02/18 [facility] HEMATOLOGY RBC 4.41 M/CMM 4.20 - 02/18 MH 5.40 [facility] HEMATOLOGY WBC 11.0 K/CMM 3.7 - 10.4 02/18 [facility] HEMATOLOGY RDW 15.6 % 11.5 - 02/18 14.5 [facility] HEMATOLOGY Platelet 265 K/CMM 133 - 450 02/18 [facility] HEMATOLOGY MCHC 32.1 g/dL 32.0 - 02/18 MH 36.0 [facility] HEMATOLOGY MPV 7.5 fL 7.4 - 10.4 02/18 [facility] HEMATOLOGY Hgb 11.7 g/dL 12.0 - 02/18 16.0 [facility] HEMATOLOGY MCH 26.5 pg 27.0 - 02/18 31.0 [facility] HEMATOLOGY MCV 82.7 fL 80.0 - 02/18 98.0 [facility] HEMATOLOGY Hct 36.5 % 36.0 - 02/18 48.0 [facility] BLOOD BANK RBC product Product available 1 02/18 Result Comment: 2017 08:02 [id number] Blood available, notified DEL-SAAD,N at 02/18/2018 08:02 _ by SH_. [facility] (02/17/18 11:57 PM) CHEM PANEL eGFR 43 02/17 Result Comment: The eGFR is calculated using the CKD-EPI formula. In most young, healthy individuals the eGFR will be >90 mL/ min/1.73m2. The eGFR declines with age. An eGFR of 60-89 may be normal in mL/min/1. some populations, particularly the elderly, for whom the CKD-EPI formula has not been extensively validated. Use of the eGFR is not recommended in the following populations: [facility] 3m2 Individuals with unstable creatinine concentrations, including patients and those with serious co-morbid conditions. Patients with extremes in muscle mass or diet. The data above are obtained from the National Kidney Disease Education Program (NKDEP) which additionally recommends that when the eGFR is used in patients with extremes of body mass index for purposes of drug dosing, the eGFR should be multiplied by the estimated BMI. CHEM PANEL AST 20 unit/L 0 - 37 02/17 [facility] CHEM PANEL B/C Ratio 21 6 - 25 02/17 [facility] CHEM PANEL AGAP 8.7 meq/L 10.0 - 05 MH 20.0 [facility] CHEM PANEL Bili Total 0.4 mg/dL 0.2 - 1.3 02/17 [facility] CHEM PANEL Alk Phos 49 unit/L 39 - 136 02/17 [facility] CHEM PANEL A/G Ratio 0.9 0.7 - 1.6 02/17 [facility] CHEM PANEL Globulin 3.5 g/dL 2.7 - 4.2 02/17 [facility] CHEM PANEL ALT 21 unit/L 0 - 65 02/17 [facility] CHEM PANEL Albumin Lvl 3.2 g/dL 3.5 - 5.0 05 [facility] CHEM PANEL Total 6.7 g/dL 6.4 - 8.4 05 Protein [facility] CHEM PANEL Calcium Lvl 9.7 mg/dL 8.5 - 10.5 02/17 [facility] CHEM PANEL Creatinine 1.20 mg/dL 0.50 - 05/ MH Lvl 1.40 /2017 [facility] CHEM PANEL Glucose Lvl 200 mg/dL 70 - 99 02/17 [facility] CHEM PANEL BUN 25 mg/dL 7 - 22 02/17 [facility] CHEM PANEL CO2 28 meq/L 24 - 32 02/17 [facility] CHEM PANEL Sodium Lvl 141 meq/L 135 - 145 02/17 [facility] CHEM PANEL Chloride Lvl 109 meq/L 95 - 109 02/17 [facility] CHEM PANEL Potassium 4.7 meq/L 3.5 - 5.1 02/17 Lvl [facility] HEMATOLOGY MPV 7.7 fL 7.4 - 10.4 05 [facility] HEMATOLOGY RDW 15.6 % 11.5 - 05 14.5 [facility] HEMATOLOGY Platelet 185 K/CMM 133 - 450 05 [facility] HEMATOLOGY MCH 27.9 pg 27.0 - 05 31.0 [facility] HEMATOLOGY MCV 81.7 fL 80.0 - 02/17 98.0 [facility] HEMATOLOGY MCHC 34.1 g/dL 32.0 - 05 36.0 [facility] HEMATOLOGY RBC 4.10 M/CMM 4.20 - 05 MH 5.40 [facility] HEMATOLOGY WBC 7.8 K/CMM 3.7 - 10.4 05 [facility] HEMATOLOGY Hct 33.5 % 36.0 - 02/17 MH 48.0 [facility] HEMATOLOGY Hgb 11.4 g/dL 12.0 - 02/17 16.0 [facility] CHEM PANEL Total 6.5 g/dL 6.4 - 8.4 02/15 Protein [facility] CHEM PANEL Albumin Lvl 3.0 g/dL 3.5 - 5.0 02/15 [facility] CHEM PANEL ALT 24 unit/L 0 - 65 02/15 [facility] CHEM PANEL Bili Total 0.3 mg/dL 0.2 - 1.3 02/15 [facility] CHEM PANEL Alk Phos 45 unit/L 39 - 136 02/15 [facility] CHEM PANEL A/G Ratio 0.9 0.7 - 1.6 02/15 [facility] CHEM PANEL AST 23 unit/L 0 - 37 02/15 [facility] CHEM PANEL Globulin 3.5 g/dL 2.7 - 4.2 02/15 [facility] CHEM PANEL B/C Ratio 25 6 - 25 02/15 [facility] URINE AND UA Ketones Negative Negative 02/15 [facility] mg/dL mg/dL [facility] URINE AND UA Bili Negative Negative 02/15 STOOL [facility] *NA* (02/15/18 3:59 AM) URINE AND UA Sq Epi Occasional Few /LPF 02/15 [facility] /LPF /2017 [facility] URINE AND UA RBC 9 /HPF 0 - 2 02/15 [facility] URINE AND UA Blood Small Negative 02/15 [facility] *ABN* (02/15/18 3:59 AM) URINE AND UA Glucose Negative Negative 02/15 [facility] mg/dL mg/dL [facility] URINE AND UA Nitrite Negative Negative 02/15 STOOL [facility] (02/15/18 3:59 AM) URINE AND UA null 0.1 - 1.0 02/15 [facility] Urobilinogen [facility] URINE AND UA WBC 7 /HPF 0 - 5 02/15 STOOL [facility] URINE AND UA Leuk Est Negative Negative 02/15 STOOL [facility] (02/15/18 3:59 AM) URINE AND UA Color Ltyellow 02/15 [facility] URINE AND UA Turbidity Clear Clear 02/15 STO[facility] (02/15/18 3:59 AM) URINE AND UA Protein Negative Negative 02/15 [facility] mg/dL mg/dL [facility] URINE AND UA pH 6.0 5.0 - 8.0 02/15 [facility] URINE AND UA Spec Grav 1.015 <=1.030 02/15 [facility] [facility] HEMATOLOGY Monocytes 10.5 % 2.0 - 12.0 02/14 [facility] HEMATOLOGY Basophils 0.4 % 0.0 - 1.0 02/14 [facility] HEMATOLOGY Eosinophils 4.7 % 0.0 - 4.0 02/14 MH /2018 [facility] HEMATOLOGY Eosinophils 0.4 K/CMM 0.0 - 0.5 05/ MH # /2018 [facility] HEMATOLOGY Monocytes # 0.9 K/CMM 0.0 - 0.8 02/14 MH /2017 [facility] HEMATOLOGY Segs-Bands # 5.2 K/CMM 1.5 - 8.1 / MH /2017 [facility] HEMATOLOGY Lymphocytes 2.4 K/CMM 1.0 - 5.5 / MH # /2018 [facility] HEMATOLOGY Lymphocytes 27.0 % 20.0 - 05/ MH 40.0 /2018 [facility] HEMATOLOGY Segs 57.4 % 45.0 - 05/ MH 75.0 /2018 [facility] CARDIAC CK MB Index 1.6 0.0 - 2.5 02/13 ENZYMES /2017 [facility] CARDIAC Total CK 215 unit/L 12 - 191 02/13 ENZYMES /2018 [facility] CARDIAC CK MB 3.4 ng/mL 0.5 - 3.6 02/13 ENZYMES /2017 [facility] CARDIAC Troponin-I null 0.00 - 02/13 ENZYMES 0.40 /2017 [facility] CHEM PANEL Phosphorus 3.7 mg/dL 2.5 - 4.5 02/13 /2017 [facility] CHEM PANEL Magnesium 2.2 mg/dL 1.8 - 2.4 / Lvl /2017 [facility] HEMATOLOGY Eosinophils 2.7 % 0.0 - 4.0 02/13 MH /2017 [facility] HEMATOLOGY Eosinophils 0.3 K/CMM 0.0 - 0.5 / MH # /2018 [facility] HEMATOLOGY Basophils # 0.1 K/CMM 0.0 - 0.2 02/13 MH /2017 [facility] HEMATOLOGY INR 1.15 0.85 - 02/13 1.17 /2017 [facility] HEMATOLOGY PT 14.7 s 12.0 - / 14.7 /2018 [facility] HEMATOLOGY PTT 30.1 s 22.9 - 02/13 35.8 /2018 [facility] Chest 2 Chest 2 CHEST TWO VIEW 02/13 - views DX views - [facility] INDICATION: Weakness and chest pain. Read by: Mahad Alvarado MD Dictated Date/time: 02/13/18 11:13 Electronically Signed by: Mahad Alvarado MD 02/13/18 11:14 FINAL REPORT COMPARISON: 11/29/2011 chest x-ray FINDINGS: Mild stable right hemidiaphragm elevation. The lungs are clear no pleural abnormality. Cardiomediastinal silhouette and bony thorax are normal. Right shoulder prosthesis. Sternal closure devices are present most of these are fractured. IMPRESSION: No acute process evident. END IMPRESSION : [id number] Vital Signs Vital Sign Value Date Comments Source Temperature Oral (F) 98.8 F 02/24/2018 [facility] Heart Rate 63 02/24/2018 [facility] Systolic (mm Hg) 154 02/24/2018 [facility] Diastolic (mm Hg) 70 02/24/2018 [facility] Respitory Rate 18 02/24/2018 [facility] Temperature Oral (F) 98.5 F 02/24/2018 [facility] Systolic (mm Hg) 152 02/24/2018 [facility] Diastolic (mm Hg) 68 02/24/2018 [facility] Respitory Rate 18 02/24/2018 [facility] Heart Rate 72 02/24/2018 [facility] Heart Rate 78 02/24/2018 [facility] Temperature Oral (F) 97.6 F 02/24/2018 [facility] Systolic (mm Hg) 155 02/24/2018 [facility] Diastolic (mm Hg) 76 02/24/2018 [facility] Respitory Rate 20 02/24/2018 [facility] Weight 86.364 02/22/2018 [facility] BMI Calculated 32.68 02/22/2018 [facility] Height 162.56 cm 02/22/2018 [facility] Height 165.1 cm 02/22/2018 [facility] BMI Calculated 34.19 02/22/2018 [facility] Weight 93.182 02/22/2018 [facility] Respitory Rate 18 02/19/2018 [facility] Systolic (mm Hg) 125 02/19/2018 [facility] Diastolic (mm Hg) 68 02/19/2018 [facility] Heart Rate 70 02/19/2018 [facility] Temperature Oral (F) 98.2 F 02/19/2018 [facility] Respitory Rate 18 02/19/2018 [facility] Systolic (mm Hg) 114 02/19/2018 [facility] Diastolic (mm Hg) 66 02/19/2018 [facility] Heart Rate 70 02/19/2018 [facility] Temperature Oral (F) 98.4 F 02/19/2018 [facility] Respitory Rate 18 02/19/2018 [facility] Heart Rate 70 02/19/2018 [facility] Systolic (mm Hg) 148 02/19/2018 [facility] Diastolic (mm Hg) 66 02/19/2018 [facility] Temperature Oral (F) 97.6 F 02/19/2018 [facility] Weight 90.028 02/14/2018 [facility] BMI Calculated 33.03 02/14/2018 [facility] Height 165.1 cm 02/14/2018 [facility] Weight 90.028 02/14/2018 [facility] Weight 88.636 02/13/2018 [facility] Encounters Location Location Encounter Encounter Reason Attending ADM DC Status Source Details Type Number For Provider Date Date Visit [facility] Inpatient [id number] Ashish 02/13 02/19 [facility] /2017 [facility] Observation [id number] Ashish 02/22 02/24 [facility] /2017 [facility] Procedures Procedure Code Date Perfomer Comments Source Aortic valve [id number] [facility] replacement Appendectomy [id number] [facility] Operation on [id number] [facility] shoulder joint Partial lobectomy [id number] [facility] thyroid
[2018-09-23 18:51] LABS: Absolute Lymphocytes (CBC) 3.4 K/uL (0.7-4.9); Absolute Monocytes 0.8 K/uL (0.1-1.3); Absolute Neutrophil 6.5 K/uL (1.8-8.0); Basophils % 0.4 % (0-1.3); Eosinophils % 2.8 % (0-4.4); Hematocrit 37.8 % (36.0-45.0); Lymphocytes % 30.8 % (15.3-44.8); MCH 27.2 pg (27.0-35.0); MCV 84.3 fL (80-100); MPV 7.8 fL (7.6-11.3); Monocytes % 7.7 % (3.3-12.3); RBC Red Blood Cell Count 4.48 M/uL (3.86-4.86)
[2018-09-23 18:52] LABS: Protime INR 1.96
[2018-09-23 19:05] LABS: ALT/SGPT 35 U/L (12-78); AST/SGOT 37 U/L (15-37); Albumin 3.3 g/dL (3.4-5.0); Alkaline Phosphatase 71 U/L (45-117); BUN Blood Urea Nitrogen 30 mg/dL (7-18); Bicarbonate 27 mmol/L (21-32); Bilirubin Direct 0.1 mg/dL (0-0.2); Bilirubin Total 0.3 mg/dL (0.2-1.0); Glucose Level 228 mg/dL (74-106); Magnesium 1.8 mg/dL (1.8-2.4); NT PRO-BNP 2515 pg/mL (<450); Potassium 4.2 mmol/L (3.5-5.1); Sodium Level 141 mmol/L (136-145); Troponin (Emerg Dept Use Only) < 0.02 ng/mL (0.0-0.045)
--- NOTE | 2018-09-23 19:33 | RAD REPORT ---
EXAM DESCRIPTION: RAD - Chest Single View - 09/23/2018 7:11 pm CLINICAL HISTORY: Delays, shortness of breath COMPARISON: May 16, 2018 TECHNIQUE: AP portable chest image was obtained 1858 hours . FINDINGS: Scattered fibrotic lung changes are present. Pattern is not clearly different from the com parison. Lung volumes are low. Patient has significant right hemidiaphragm elevation. Cardiac valve r eplacement changes are evident. Failure/ volume overload are not suspected. Heart and vasculature are normal. No measurable pleural effusion and no pneumothorax. No acute bone finding. Right shoulder pr osthesis in place. No acute aortic findings suspected. IMPRESSION: Chronic interstitial lung disease similar to comparison. No acute finding.
--- NOTE | 2018-09-23 20:09 | EDPHYS ---
Physician Documentation [facility] Name: Lynda Esquivel Age: 77 yrs Sex: Female : 1940 Arrival Date: 09/23/2018 Time: 17:59 Bed 24 Private MD: Оелг Calhoun V ED Physician Ang Torre HPI: 09/23 19:53 This 77 yrs old Female presents to ER via Ambulatory with complaints of gs Shortness Of Breath. 19:53 The patient has shortness of breath during heavy activity. Onset: The symptoms/episode gs began/occurred yesterday. Duration: The symptoms are intermittent. The patient's shortness of breath is aggravated by walking. Associated signs and symptoms: Pertinent negatives: chest pain. Severity of symptoms: At their worst the symptoms were moderate in the emergency department the symptoms are unchanged. The patient has experienced similar episodes in the past, a few times. Historical: - Allergies: 18:04 metformin; hj 18:04 Kcvpurr-Bsa-Iid Reductase Inhibitors; hj - Home Meds: 18:04 Xarelto 15 mg oral tab daily [Active]; Bystolic 5 mg oral tab 1 tab once daily hj [Active]; Lantus Sub-Q [Active]; Humalog Sub-Q [Active]; levothyroxine oral [Active]; - PMHx: 18:04 Diabetes - IDDM; Hypertension; Hypothyroidism; pulmonary fibrosis; Renal Disease; hj - PSHx: 18:04 CABG; hj - Immunization history:: Adult Immunizations up to date. - Social history:: Smoking status: Patient/guardian denies using tobacco, Patient/guardian denies using alcohol. - Ebola Screening: : Patient negative for fever greater than or equal to 101.5 degrees Fahrenheit, and additional compatible Ebola Virus Disease symptoms Patient denies exposure to infectious person Patient denies travel to an Ebola-affected area in the 21 days before illness onset. ROS: 19:53 : Positive for hematuria. gs 19:53 All other systems are negative. Exam: 19:53 Head/Face: Normocephalic, atraumatic. Eyes: Pupils equal round and reactive to light, gs extra-ocular motions intact. Lids and lashes normal. Conjunctiva and sclera are non-icteric and not injected. Cornea within normal limits. Periorbital areas with no swelling, redness, or edema. ENT: Nares patent. No nasal discharge, no septal abnormalities noted. Tympanic membranes are normal and external auditory canals are clear. Oropharynx with no redness, swelling, or masses, exudates, or evidence of obstruction, uvula midline. Mucous membranes moist. Neck: Trachea midline, no thyromegaly or masses palpated, and no cervical lymphadenopathy. Supple, full range of motion without nuchal rigidity, or vertebral point tenderness. No Meningismus. Chest/axilla: Normal chest wall appearance and motion. Nontender with no deformity. No lesions are appreciated. Cardiovascular: Regular rate and rhythm with a normal S1 and S2. No gallops, murmurs, or rubs. Normal PMI, no JVD. No pulse deficits. Respiratory: Lungs have equal breath sounds bilaterally, clear to auscultation and percussion. No rales, rhonchi or wheezes noted. No increased work of breathing, no retractions or nasal flaring. Abdomen/GI: Soft, non-tender, with normal bowel sounds. No distension or tympany. No guarding or rebound. No evidence of tenderness throughout. Back: No spinal tenderness. No costovertebral tenderness. Full range of motion. MS/ Extremity: Pulses equal, no cyanosis. Neurovascular intact. Full, normal range of motion. Neuro: Awake and alert, GCS 15, oriented to person, place, time, and situation. Cranial nerves II-XII grossly intact. Motor strength 5/5 in all extremities. Sensory grossly intact. Cerebellar exam normal. Normal gait. 19:53 Constitutional: The patient appears alert, awake. 19:53 ECG was reviewed by the Attending Physician. 19:53 Abdomen/GI: Rectal exam: Stool: plummer. 19:53 : Pelvic Exam: bimanual exam reveals no blood. Vital Signs: 17:59 BP 124 / 40; Pulse 60; Resp 18; Temp 100.0; Pulse Ox 95% on R/A; Weight 74.84 kg; hj Height 5 ft. 3 in. (160.02 cm); 18:44 BP 122 / 69; Pulse 63; Resp 18; Pulse Ox 97% on R/A; aj1 19:00 BP 129 / 46; Pulse 61; Resp 16; Pulse Ox 98% on R/A; rv 19:30 BP 129 / 63; Pulse 64; Resp 17 S; Pulse Ox 98% on R/A; rv 20:00 BP 110 / 53; Pulse 63; Resp 19 S; Pulse Ox 98% on R/A; rv 20:30 BP 113 / 91; Pulse 61; Resp 18; Pulse Ox 96% on R/A; rv 17:59 Body Mass Index 29.23 (74.84 kg, 160.02 cm) hj MDM: 18:28 Patient medically screened. gs 19:53 Differential diagnosis: CHF exacerbation, Chronic Obstructive Pulmonary Disease gs Myocardial Infarction pneumonia, uti. Data reviewed: vital signs, nurses notes, lab test result(s), EKG, radiologic studies. ED course: spoke to dr nas edwards with lv mural thrombus started on xarelto.. 09/23 18:12 Order name: Basic Metabolic Panel; Complete Time: 19:39 09/23 18:12 Order name: CBC with Diff; Complete Time: 19:39 09/23 18:12 Order name: LFT's; Complete Time: 19:39 09/23 18:12 Order name: Magnesium; Complete Time: 19:39 09/23 18:12 Order name: NT PRO-BNP; Complete Time: 19:39 09/23 18:12 Order name: PT-INR; Complete Time: 19:39 09/23 18:12 Order name: Troponin (emerg Dept Use Only); Complete Time: 19:39 09/23 18:12 Order name: Flu; Complete Time: 19:39 09/23 18:29 Order name: Type And Screen 09/23 19:40 Order name: Urine Culture 09/23 19:40 Order name: Urine Microscopic Only 09/23 19:40 Order name: Blood Culture* 09/23 19:42 Order name: Urine Dipstick--Ancillary (enter results) mo 09/23 20:10 Order name: ABO/RH no charge EDNJ 09/23 18:12 Order name: XRAY Chest (1 view); Complete Time: 19:39 09/23 18:12 Order name: EKG; Complete Time: 18:14 09/23 18:12 Order name: Cardiac monitoring; Complete Time: 18:39 09/23 20:18 Order name: CONS Physician Consult EDNJ 09/23 20:18 Order name: Consistent Carb (ADA) 2000 Eric EDNJ 09/23 20:18 Order name: EKG Electrocardiogram EDMS 09/23 20:18 Order name: EKG Electrocardiogram EDMS 09/23 20:18 Order name: Basic Metabolic Panel EDMS 09/23 20:18 Order name: Basic Metabolic Panel EDMS 09/23 20:18 Order name: CBC with Automated Diff EDMS 09/23 20:18 Order name: CBC with Automated Diff EDMS 09/23 20:18 Order name: Troponin I EDMS 09/23 20:18 Order name: Troponin I EDMS 09/23 20:18 Order name: Troponin I EDMS 09/23 18:12 Order name: EKG - Nurse/Tech; Complete Time: 18:40 09/23 18:12 Order name: IV Saline Lock; Complete Time: 18:58 gs 09/23 18:12 Order name: Labs collected and sent; Complete Time: 18:40 gs 09/23 18:12 Order name: O2 Per Protocol; Complete Time: 18:43 gs 09/23 18:12 Order name: O2 Sat Monitoring; Complete Time: 18:43 09/23 19:40 Order name: Urine Dipstick-Ancillary (obtain specimen); Complete Time: 20:08 gs EC:53 Rate is 60 beats/min. Rhythm is regular. KS interval is prolonged. QRS interval is gs prolonged. T waves are Normal. No ST changes noted. Clinical impression: Abnormal EKG without significant change. Interpreted by me. Administered Medications: 20:15 Drug: Rocephin - (cefTRIAXone) 1 grams Route: IVPB; Infused Over: 30 mins; Site: left rv forearm; 20:59 Follow up: IV Status: Completed infusion rv 20:30 Drug: Zofran 4 mg Route: IVP; Site: left forearm; rv 20:57 Follow up: Response: Nausea is decreased rv Disposition: 19:53 Critical Care:. gs Disposition: 18 20:09 Hospitalization ordered by Олег Calhoun for Observation. Preliminary diagnosis are Dyspnea, Cystitis. - Bed requested for Telemetry/MedSurg (observation). - Status is Observation. rv - Condition is Stable. - Problem is new. - Symptoms have improved. UTI on Admission? Yes Critical care time excluding procedures: 19:53 Critical care time: Bedside Care: 10 minutes, Consultation: 10 minutes, Family gs Intervention: 10 minutes. Total time: 30 minutes Signatures: Dispatcher [employer] EDMS Jessica Urrutia RN RN Pavel Encinas RN TRUDY Ang Torre MD MD Bill Grigsby RN RN rv Corrections: (The following items were deleted from the chart) 20:16 20:09 Hospitalization Ordered by Олег Calhoun MD for Observation. Preliminary diagnosis mw is Dyspnea; Cystitis. Bed requested for Telemetry/MedSurg (observation). Status is Observation. Condition is Stable. Problem is new. Symptoms have improved. UTI on Admission? Yes. 20:59 20:16 09/23/2018 20:09 Hospitalization Ordered by Олег Calhoun MD for Observation. rv Preliminary diagnosis is Dyspnea; Cystitis. Bed requested for Telemetry/MedSurg (observation). Status is Observation. Condition is Stable. Problem is new. Symptoms have improved. UTI on Admission? Yes. mw
--- NOTE | 2018-09-23 20:09 | ER ---
Nurse's Notes [facility] Name: Lynda Esquivel Age: 77 yrs Sex: Female : 1940 Arrival Date: 09/23/2018 Time: 17:59 Bed 24 Private MD: Олег Calhoun V Diagnosis: Dyspnea;Cystitis Presentation: 09/23 18:00 Presenting complaint: Patient states: i started on new heart meds; Bystolic and hj xarelto; i could hardly get ot the bathroom from the bedroom, im short of breath; denies chest pain;. Transition of care: patient was not received from another setting of care. Onset of symptoms was September 23, 2018. Risk Assessment: Do you want to hurt yourself or someone else? Patient reports no desire to harm self or others. Initial Sepsis Screen: Does the patient meet any 2 criteria? No. Patient's initial sepsis screen is negative. Does the patient have a suspected source of infection? No. Patient's initial sepsis screen is negative. Care prior to arrival: None. 18:00 Method Of Arrival: Ambulatory 18:00 Acuity: SHANIQUA 3 hj Triage Assessment: 18:04 General: Appears in no apparent distress. uncomfortable, Behavior is calm, cooperative, hj appropriate for age. Pain: Complains of pain in chest. Respiratory: Reports shortness of breath Onset: The symptoms/episode began/occurred the patient has mild shortness of breath. Historical: - Allergies: 18:04 metformin; 18:04 Oymbcum-Hvq-Fci Reductase Inhibitors; hj - Home Meds: 18:04 Xarelto 15 mg oral tab daily [Active]; Bystolic 5 mg oral tab 1 tab once daily hj [Active]; Lantus Sub-Q [Active]; Humalog Sub-Q [Active]; levothyroxine oral [Active]; - PMHx: 18:04 Diabetes - IDDM; Hypertension; Hypothyroidism; pulmonary fibrosis; Renal Disease; - PSHx: 18:04 CABG; hj - Immunization history:: Adult Immunizations up to date. - Social history:: Smoking status: Patient/guardian denies using tobacco, Patient/guardian denies using alcohol. - Ebola Screening: : Patient negative for fever greater than or equal to 101.5 degrees Fahrenheit, and additional compatible Ebola Virus Disease symptoms Patient denies exposure to infectious person Patient denies travel to an Ebola-affected area in the 21 days before illness onset. Screenin:04 Abuse screen: Denies threats or abuse. Denies injuries from another. Nutritional screening: No deficits noted. Tuberculosis screening: No symptoms or risk factors identified. Fall Risk None identified. Assessment: 18:05 Cardiovascular: Rhythm is regular. Respiratory: Airway is patent Respiratory effort is hj even, unlabored, Respiratory pattern is regular, symmetrical, Breath sounds are clear. 18:44 General: Appears in no apparent distress. uncomfortable, Behavior is cooperative, aj1 agitated. Pain: Denies pain. Neuro: Level of Consciousness is awake, alert, obeys commands. Cardiovascular: Heart tones S1 S2 present Patient's skin is warm and dry. Rhythm is sinus rhythm. Respiratory: Reports shortness of breath on exertion Airway is patent Respiratory effort is even, unlabored, Respiratory pattern is regular, symmetrical, Breath sounds are clear bilaterally. GI: No signs and/or symptoms were reported involving the gastrointestinal system. : No signs and/or symptoms were reported regarding the genitourinary system. EENT: No signs and/or symptoms were reported regarding the EENT system. Derm: No signs and/or symptoms reported regarding the dermatologic system. Skin is pink, warm \T\ dry. normal. Musculoskeletal: No signs and/or symptoms reported regarding the musculoskeletal system. Circulation, motion, and sensation intact. Vital Signs: 17:59 BP 124 / 40; Pulse 60; Resp 18; Temp 100.0; Pulse Ox 95% on R/A; Weight 74.84 kg; Height 5 ft. 3 in. (160.02 cm); 18:44 BP 122 / 69; Pulse 63; Resp 18; Pulse Ox 97% on R/A; aj1 19:00 BP 129 / 46; Pulse 61; Resp 16; Pulse Ox 98% on R/A; rv 19:30 BP 129 / 63; Pulse 64; Resp 17 S; Pulse Ox 98% on R/A; rv 20:00 BP 110 / 53; Pulse 63; Resp 19 S; Pulse Ox 98% on R/A; rv 20:30 BP 113 / 91; Pulse 61; Resp 18; Pulse Ox 96% on R/A; rv 17:59 Body Mass Index 29.23 (74.84 kg, 160.02 cm) ED Course: 17:59 Patient arrived in ED. sb2 17:59 Олег Calhoun MD is Private Physician. sb2 18:02 Triage completed. hj 18:05 Arm band placed on right wrist. hj 18:05 Patient has correct armband on for positive identification. Bed in low position. Call hj light in reach. Side rails up X 1. Adult w/ patient. 18:06 Ang Torre MD is Attending Physician. gs 18:10 Chelsie Mitchell RN is Primary Nurse. aj1 18:19 EKG done, by ED staff, reviewed by Ang Torre MD. jp3 18:26 Private physician called and paged Dr. Oconnell for Dr. Torre through his answering eb service. 18:28 Private physician returned call and connected with Dr. Torre for patient consultation. eb 18:44 No provider procedures requiring assistance completed. aj1 18:55 T\T\S collected, blood band applied to patient. Inserted saline lock: 22 gauge in left iw forearm, using aseptic technique. Blood collected. 18:55 Initial lab(s) drawn, by ED staff, sent to lab. jp3 19:12 XRAY Chest (1 view) In Process Unspecified. EDMS 19:20 Flu and/or RSV swab sent to lab. jp3 19:21 Flu Sent. jp3 19:21 Type And Screen Sent. jp3 19:30 Urine collected: clean catch specimen, clear, blood tinged, Amount Voided: 30mL. jp3 19:50 First set of blood cultures drawn by me. jp3 20:05 Second set of blood cultures drawn by me. jp3 20:08 Олег Calhoun MD is Hospitalizing Provider. gs 20:08 Blood Culture* Sent. jp3 20:08 Urine Dipstick--Ancillary (enter results) Sent. jp3 20:08 Urine Culture Sent. jp3 20:08 Urine Microscopic Only Sent. jp3 20:59 Urine Culture Sent. rv 20:59 Patient admitted, IV remains in place. intact. rv Administered Medications: 20:15 Drug: Rocephin - (cefTRIAXone) 1 grams Route: IVPB; Infused Over: 30 mins; Site: left rv forearm; 20:59 Follow up: IV Status: Completed infusion rv 20:30 Drug: Zofran 4 mg Route: IVP; Site: left forearm; rv 20:57 Follow up: Response: Nausea is decreased rv Outcome: 20:09 Decision to Hospitalize by Provider. 20:56 Admitted to Tele accompanied by tech, via wheelchair, room 404, with chart, Report rv called to NURSE DULCE. 20:56 Condition: good 20:56 Instructed on the need for admit. 20:59 Patient left the ED. rv Signatures: Dispatcher [employer] EDChelsie Woody RN RN aj1 Christelle Ledbetter RN TRUDY Pavel Encinas RN RN hj Starr, Gregory, MD MD Any Connor2 Ira Maldonado Ronaldo, RN RN Chidi Castillo jp3 Corrections: (The following items were deleted from the chart) 18:05 17:59 Pulse 60bpm; Resp 18bpm; Pulse Ox 95% RA; Temp 100.0F; 74.84 kg; Height 5 ft. 3 hj in.; BMI: 29.2; hj
[2018-09-23] MEDS ORDERED: ACETAMINOPHEN 500 MG TAB PO PRN (20:15)
[2018-09-23] MEDS ORDERED: CEFTRIAXONE/SWI 1gm 1 GM/10 ML SYR ONE (20:23)
[2018-09-23] MEDS ORDERED: ONDANSETRON 4 MG/2 ML VIAL ONE (20:36)
[2018-09-23 20:37] LABS: Urine Bacteria 20-50 /HPF (<20); Urine Culture Reflex Order NOT NEEDED; Urine Mucus 1+ /HPF (NONE SEEN); Urine RBC >50 /HPF (NONE SEEN)
[2018-09-23 21:05] LABS: Urine Blood 2+ (NEG); Urine Glucose NEGATIVE (NEG); Urine Protein 2+ (NEG); Urine Specific Gravity 1.025 (1.005-1.030); Urine pH 5.5 (5.0-7.0)
[2018-09-23 21:12] VITALS: O2SAT 96
[2018-09-23] MEDS ORDERED: GLUCAGON 1 MG/VIAL IM PRN (21:19)
[2018-09-23] MEDS ORDERED: D50W 25 GM/50 ML SYRINGE IV PRN (21:19)
[2018-09-24 02:31] VITALS: BMI 29.4
[2018-09-24 04:47] LABS: Potassium 4.4 mmol/L (3.5-5.1)
[2018-09-24 04:50] LABS: Absolute Lymphocytes (CBC) 3.1 K/uL (0.7-4.9); Absolute Neutrophil 5.4 K/uL (1.8-8.0); Basophils % 0.4 % (0-1.3); Eosinophils % 2.6 % (0-4.4); Hematocrit 34.2 % (36.0-45.0); Lymphocytes % 31.5 % (15.3-44.8); MCH 27.8 pg (27.0-35.0); MCV 83.1 fL (80-100); MPV 8.3 fL (7.6-11.3); Monocytes % 9.8 % (3.3-12.3); RBC Red Blood Cell Count 4.11 M/uL (3.86-4.86)
--- NOTE | 2018-09-24 05:47 | EKG ---
Test Date: 2018-09-23 Test Time: 18:19:24 Coremaker Supervisor: DALE MEASUREMENT RESULTS: Intervals: Rate: 60 DC: 240 QRSD: 142 QT: 456 QTc: 456 [place]: P: DC: 240 QRS: 59 T: 2 INTERPRETIVE STATEMENTS: Sinus bradycardia with first degree AV block and with frequent premature ventricular complexes Right bundle branch block Abnormal ECG Compared to ECG 05/16/2018 21:58:27 Ventricular premature complex(es) now present Sinus rhythm no longer present Electronically Signed On 09-24-18 05:47:01 [employer]ODY [employer]IE [employer]KER by Jake Clark
[2018-09-24 06:05] LABS: Blood Morphology Comment NOT SEEN (NOT SEEN); Platelet Estimate ADEQ
[2018-09-24 07:13] VITALS: TEMP 98.4
[2018-09-24] MEDS ORDERED: INSULIN -REGULAR HUMAN 50 UNIT/0.5 ML ML SQ SCH (07:30)
--- NOTE | 2018-09-24 08:00 | RAD REPORT ---
EXAM DESCRIPTION: CT - Chest Angio - 09/23/2018 10:34 pm CLINICAL HISTORY: Shortness of breath COMPARISON: 2008 TECHNIQUE: Dynamically enhanced axial 3 mm thick images of the chest were obtained during administra tion of <100> mL Isovue 370 IV contrast. Coronal and oblique reconstruction images were generated and reviewed. Exam utilizes a protocol for optimal evaluation of pulmonary arterial tree. Maximum intensity projections 3D imaging was utilized All CT scans are performed using dose optimization technique as appropriate and may include automated exposure control or mA/KV adjustment according to patient size. FINDINGS: A pulmonary embolus is not seen. A thoracic aortic aneurysm is not noted. A pleural effusion is not seen. A pericardial effusion is not seen. A lung consolidation is not present. A moderate pulmonary fibrosis. A couple of blebs are present. IMPRESSION: Negative for a pulmonary embolism. Moderate pulmonary fibrosis
[2018-09-24] MEDS ORDERED: ASPIRIN EC 81 MG TAB PO SCH (09:00)
[2018-09-24] MEDS ORDERED: CEFTRIAXONE 1 GM/NS 50 ML 1 GM/50 ML BAG IV SCH (09:00)
[2018-09-24] MEDS ORDERED: CEFTRIAXONE/SWI 1gm 1 GM/10 ML SYR IV SCH ×2 (09:00→21:00)
[2018-09-24 10:45] VITALS: BP 133/55
--- NOTE | 2018-09-24 21:10 | P.SSS ---
Patient History Date of Service: 09/24/18 Reason for admission: SENT TO ER BY DR AGRAWAL FOR PERINEAL BLEEDING History of Present Illness: BEAU SOON I ENTER ASKED ME WHO IS RESPONSIBLE FOR ALL THE TESTS AND THAT SHE CAN'T AFFORD SHE LIVES ON $1,600 A MONTH. I ASKED HER WHY SHE CAME TO ER. SHE SAYS DR. AGRAWAL ASKED HER TO. I CALLED DR. AGRAWAL AND HE SAID THAT RECENTLY HE STARTED HER ON XARELTO 15 MG DAILY FOR VENTRICULAR ANEURYSM SHE HAD CVA FROM IT. HE ALSO STARTED HER ON BYSTOLIC. SHE HAS BEEN CALLING THEM AND SAID SHE DOES NOT TOLERATE BYSTOLIC SO HE REDUCED THE DOSE. SHE IS NOT HAPPY BEING HERE AND WANTS TO GO HOME. SHE HAS NO ACUTE SYMPTOMS TO BE IN THE HOSPITAL. IT WAS ER DOCTORS DECISION TO ADMIT HER. SHE HAS NO MORE DYSPNEA THAN USUAL. Allergies Beta-Blockers (Beta-Adrenergic Bloc Allergy (Verified 09/23/18 21:41) Hives/Rash metformin Allergy (Verified 09/23/18 21:41) Unknown Sulfa (Sulfonamide Antibiotics) [Sulfa(Sulfonamide Antibiotics)] Allergy ( Verified 09/23/18 21:41) Hives/Rash Yiqwdzy-Tko-Fxe Re Allergy (Uncoded 09/23/18 21:41) Unknown Ynraqqm-Qwg-Ktf Reductase Allergy (Uncoded 09/23/18 21:41) Unknown Home Medications: Fenofibrate [Tricor] 48 mg PO DAILY 03/15/18 Gabapentin [Neurontin] 100 mg PO TID 03/15/18 Hydralazine HCl 50 mg PO BID 03/15/18 Insulin Glargine,Hum.rec.anlog [Lantus Solostar] 60 unit SQ DAILY WITH BREAKFAST 03/15/18 Insulin Lispro [Humalog] 0 unit SQ SEECOM PRN 03/15/18 Levothyroxine [Synthroid] 50 mcg PO [id number] 03/15/18 Liothyronine Sodium [Cytomel] 5 mcg PO DAILY 03/15/18 Losartan Potassium 100 mg PO DAILY 03/15/18 Ondansetron HCl [Zofran] 4 mg PO PRN PRN 03/15/18 levoFLOXacin [Levofloxacin] 500 mg PO DAILY 03/15/18 Nebivolol HCl [Bystolic*] 2.5 mg PO DAILY 09/23/18 Rivaroxaban [Xarelto] 15 mg PO DAILY 09/23/18 Cefuroxime [Ceftin] 250 mg PO BID #14 tab 09/24/18 - Past Medical/Surgical History Has patient received pneumonia vaccine in the past: Yes Diabetic: Yes -: pulmonary fibrosis -: IDDM -: kidney disease -: arthritis(osteo and rheumatoid) -: thyroid problems -: 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 heart surgery) -: hysterectomy 1969 -: re-open chest fixed wires that closes the ribs (feb 18 2018) -: Right artificial shoulder sx 2008 -: gall bladder and appendix removal 1979 - Family History Mother -: Other (see notes) Notes: blockage in neck Father -: Heart disease Sister -: Other (see notes) Notes: cancer Brother Notes: cancer - Social History Smoking Status: Never smoker Alcohol use: No CD- Drugs: No Caffeine use: Yes Place of Residence: Home Review of Systems 10-point ROS is otherwise unremarkable Physical Examination - Vital Signs Temperature: 98.4 F Blood Pressure: 133/55 Pulse: 64 Respirations: 20 Pulse Ox (%): 93 - Physical Exam General: Alert, In no apparent distress, Other (AT HER BASELINE.) HEENT: Atraumatic, PERRLA, Mucous membr. moist/pink, EOMI, Sclerae nonicteric Neck: Supple, 2+ carotid pulse no bruit, No LAD, Without JVD or thyroid abnormality Respiratory: Clear to auscultation bilaterally, Normal air movement Cardiovascular: Regular rate/rhythm, Normal S1 S2 Gastrointestinal: Normal bowel sounds, No tenderness Musculoskeletal: No tenderness Integumentary: No rashes Neurological: Normal gait, Normal speech, Normal strength at 5/5 x4 extr, Normal tone, Normal affect Lymphatics: No axilla or inguinal lymphadenopathy - Studies Microbiology Data (last 24 hrs): 09/23/18 19:15 Nasopharnyx Influenza Type A Antigen Screen - Final 09/23/18 19:15 Nasopharnyx Influenza Type B Antigen Screen - Final - Diagnosis (Problem(s)) (1) Diabetes Status: Chronic Plan: NO CHANGES A1C DONE AT OFFICE. Qualifiers: Diabetes mellitus type: type 2 (2) Ventricular aneurysm Status: Chronic Plan: NEW FOR US AND PATIENT. DR AGRAWAL PUT HER ON XARELTO. WITH HEMATURIA SHE WILL HOLD IT FOR A FEW DAYS AND DR. AGRAWAL WILL FU ON IT. (3) History of CVA (cerebrovascular accident) Status: Chronic Plan: SHE WAS IN [place] FOR THIS A FEW MONTHS AGO. RESIDUAL IS MEMORY LOSS (4) Rheumatoid arteritis Status: Chronic Plan: HAS BEEN TO RHEUMATOLOISTS AND DOES NOT WANT ANY MEDS. (5) Fibromyalgia Status: Acute (6) Cystitis Onset Date: 09/24/18 Status: Acute Plan: CEFTIN PO BID. FU ON HEMATURIA. IF CONTINUES WILL DO FURTHER PELIVC EVALUATION. SHE IN HER POOR GENERAL CONDITION IS NOT A CANDIDATE FOR INVASIVE TESTS. - Disposition Disposition: ROUTINE DISCHARGE Patient Discharge Instructions: DO NOT TAKE XARELTO UNTIL BLEEDING STOPS.CALL DR AGRAWAL FOR NEW DOSE. SEE YOU IN OFFICE IN 10 DAYS OR SO. Diet: ADA Activity: Ad srikanth
--- NOTE | 2018-09-25 14:55 | CON ---
Date of Consultation: 09/24/[address] Calhoun's service on 09/23/2018. Reason For Consultation: Shortness of breath, cystitis, and chest pain. History Of Present Illness: Ms. Esquivel is a 77-year-old woman. She is a patient of Dr. Motta. So unds like she was recently diagnosed with a pulmonary embolus. She came in with shortness of breath and chest pain, probably secondary to her embolus. Chest x-ray showed chronic interstitial lung dise ase. EKG showed right bundle-branch block. An echocardiogram is pending. A CTA is pending. She is asymptomatic except for some dyspnea on exertion. She denied PND, orthopnea, pedal edema, or palpit ation. Denies nausea, vomiting, diaphoresis. She denied any fever. Past Medical History: Hypothyroidism, hypertension, atrial fibrillation, chronic renal disease, diab etes, hypertriglyceridemia, coronary artery disease status post CABG, and pulmonary fibrosis. Allergies: SULFA, METFORMIN, AND SOME BETA BLOCKERS. Medications At Home: Synthroid, Bystolic, Xarelto, TriCor, hydralazine, gabapentin, losartan, Cytome l, and insulin. Review of Systems: Negative. Social History: Negative. Family History: Negative. Physical Examination: Vital Signs: Stable. She was in sinus bradycardia. Afebrile. O2 saturations were adequate. HEENT: Negative. Neck: Supple with no bruit. Chest: Clear to auscultation and percussion. Cardiac: Revealed a regular rhythm and rate with an aortic sclerosis murmur. No gallops or rubs. Abdomen: Benign but obese. Extremities: Revealed no clubbing, cyanosis, or edema. Diagnostic Data: White count was 11, INR was 1.96, glucose was 228. BNP is 2515. Urinalysis shows UTI. Chest x-ray shows chronic interstitial lung disease. EKG shows sinus bradycardia with right bu ndle-branch block. Impression And Plan: 1.Shortness of breath and chest pain, most likely secondary to pulmonary embolus. 2.Hypothyroidism. 3.Hypertension, well controlled. 4.Atrial fibrillation and sinus rhythm, right now on Xarelto and Bystolic. 5.Diabetes. 6.Hypertriglyceridemia. 7.Coronary artery disease, status post CABG, stable. 8.Pulmonary fibrosis. 9.Urinary tract infection, on antibiotics. I agree with her present regimen. An echocardiogram is pending. I will discuss the case further wit helena Calhoun. She will follow up with Dr. Motta in the future. MARIPOSA/NANY Voice ID: [id number] Report ID: [id number]
== END 2018-09-24 11:45 | disposition home or self-care (01) ==
LOC: ER 17:55 → ERHOLD 20:13 → 4TH 20:48
PROVIDERS: ADMIT Internal Medicine; ATTEND Internal Medicine
DX: N30.01 Acute cystitis with hematuria (principal); I25.3 Aneurysm of heart; J84.10 Pulmonary fibrosis, unspecified; E03.9 Hypothyroidism, unspecified; M79.7 Fibromyalgia; E11.9 Type 2 diabetes mellitus without complications; I25.10 Atherosclerotic heart disease of native coronary artery without angina pectoris; I48.91 Unspecified atrial fibrillation; M06.9 Rheumatoid arthritis, unspecified; Z86.73 Personal history of transient ischemic attack (TIA), and cerebral infarction without residual deficits; Z95.1 Presence of aortocoronary bypass graft; Z88.2 Allergy status to sulfonamides
CPT/HCPCS: 36415; 71045; 71275; 80048 ×2; 80076; 82962 ×3; 83735; 83880; 84484 ×3; 85025 ×2; 85610; 86850; 86900; 86901; 87040 ×2; 87086; 87088; 87804 ×2; 93005; 96365; 96375; 99285; G0378 ×2; J0696; J2405; Q9967; 81003; 81015

== ENCOUNTER 2019-01-22 10:07 | Emergency (ER) | payer OTHER ==
--- OUTSIDE RECORDS SUMMARY | 2019-01-22 10:18 | XMS REPORT | Continuity of Care Document ---
:1940 Author Organization Interface Problems Problem Status Onset Classification Date Comments Source Date Reported CHEST PAIN Active 02/23/20 18 [facility] PNEUMONIA, CHEST Active 02/23/20 MH PAIN 18 [facility] SURGICAL SITE Active 02/14/20 INFECTION, JOSIAH 18 [facility] Wound Resolved 11/29/19 Problem 02/27/2018 debridement; 12 [facility] sternal wound AVR - Aortic Resolved 10/13/20 Problem 02/27/2018 valve replacement 11 [facility] Abnormal Resolved Problem 02/27/2018 metabolic state [facility] in diabetes mellitus AF - Atrial Active Problem 02/27/2018 fibrillation 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 ID="[id number]" >Confirmed</span> ) Osteoarthritis, Active Problem 02/27/2018 shoulder 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 S/P AVR (<span Active Problem 02/27/2018 ID="[id number]" [place] >Confirmed</span> ) Hypertension Active Problem 02/27/2018 [facility] Hypothyroidism Active Problem 02/27/2018 [facility] Maze procedure Active Problem 02/27/2018 [facility] Paroxysmal a-fib Resolved Problem 02/27/2018 [facility] Unspecified 02/22/2018 complication of [facility] procedure, initial encounter UNSPECIFIED Active COMPLICATION OF [facility] PROCEDURE, I ACUTE KIDNEY Active FAILURE, [facility] UNSPECIFIED PNEUMONIA, Active UNSPECIFIED [facility] ORGANISM Medications Medication Details Route Status Patient Ordering Order Source Instructions Provider Date Morphine 2 mg, 0.5 mL, Inactive Route: IVP, 2017 [facility] Drug form: SOLN, ONCE, Dosing Weight 86.364, kg, Priority: NOW, Start date: 02/24/18 10:49:00 CDT, Stop date: 02/24/18 10:49:00 CDTNotes: (Same as:MORPhine Sulfate) Acetaminophen 300 1 tab, Route: No Longer MG / Codeine PO, Drug Form: Active 2017 [facility] Phosphate 30 MG TAB, Dosing Oral Tablet Weight 86.364, [Tylenol with kg, Q4H, PRN Codeine #3] Pain Score 1-3, Start date: 02/23/18 17:05:00 CDT, Duration: 30 day, Stop date: 03/25/18 17:04:00 CDTNotes: Do not exceed 4gm/day of acetaminophen. (Same as: Tylenol with Codeine # 3) Docusate 100 mg, 1 cap, No Longer Route: PO, Drug Active 2017 [facility] form: CAP, Daily, Dosing Weight 86.364, kg, Priority: NOW, Start date: 02/23/18 17:04:00 CDT, Duration: 30 day, Stop date: 03/25/18 9:00:00 CDTNotes: (Same as: Colace) (Do Not Crush) Miralax 17 gm, 1 pkt, No Longer Route: PO, Drug Active 2017 [facility] form: PWDR, Daily, Dosing Weight 86.364, kg, Priority: NOW, Start date: 02/23/18 17:04:00 CDT, Duration: 30 day, Stop date: 03/25/18 9:00:00 CDTNotes: Dissolve in 8 oz of water or juice. (Same as: Miralax) Morphine 4 mg, 1 mL, Inactive Route: IVP, 2017 [facility] Drug form: SOLN, Q6H, Dosing Weight 86.364, kg, PRN Pain Score 7-10, Priority: NOW, Start date: 02/23/18 9:13:00 CDT, Duration: 30 day, Stop date: 03/25/18 9:12:00 CDTNotes: (Same as:MORPhine Sulfate) Triiodothyronine 5 microgram, 1 No Longer tab, Route: PO, Active 2017 [facility] Drug form: TAB, Daily, Dosing Weight 93.182, kg, Start date: 02/23/18 9:00:00 CDT, Duration: 30 day, Stop date: 03/24/18 9:00:00 CDTNotes: (Same as: Cytomel) Thyroxine 50 microgram, 1 No Longer tab, Route: PO, Active 2017 [facility] Drug form: TAB, Daily, Dosing Weight 93.182, kg, Start date: 02/23/18 9:00:00 CDT, Duration: 30 day, Stop date: 03/24/18 9:00:00 CDTNotes: Take 1 hour before or 2 hours after meal; Enteral feeds may interefere with the absorption of this medication.(Eddie e as:Levothroid, Synthroid) 3 ML Insulin 56 unit, 0.56 No Longer Glargine 100 mL, Route: Active 2017 [facility] UNT/ML Prefilled SUB-Q, Drug Syringe [Lantus] [...] IV 1,000 mL 100 ml/hr, Active 2017 [facility] Infuse over: 10 hr, Route: IV, Dosing Weight 93.182 kg, Total Volume: 1,000, Start date: 02/22/18 16:59:00 CDT, Duration: 30 day, Stop date: 03/24/18 16:58:00 CDT, 2.1, m2 Saline Flush 0.9% 10 ml, Route: No Longer IVP, Drug Form: Active 2017 [facility] INJ, Dosing Weight 93.182, kg, PRN, PRN Line Flush, Start date: 02/22/18 16:59:00 CDT, Duration: 30 day, Stop date: 03/24/18 16:58:00 CDTNotes: (Same as: BD Posiflush) Insulin Lispro 2 unit, 0.02 No Longer mL, Route: Active 2018 [facility] SUB-Q, Drug form: SOLN, Bedtime, Dosing [...] No Longer IM, Drug form: Active 2018 [facility] PDR/INJ, PRN, Dosing Weight 93.182, kg, PRN Blood Glucose Results, Start date: 02/22/18 14:35:00 CDT, Duration: 30 day, Stop date: 03/24/18 14:34:00 CDT Dextrose 50% 25 gm, 50 mL, No Longer Syringe Route: IVP, Active 2017 [facility] Drug Form: INJ, Dosing Weight 93.182, kg, PRN, PRN Blood Glucose Results, Start date: 02/22/18 14:35:00 CDT, Duration: 30 day, Stop date: 03/24/18 14:34:00 CDT Losartan 100 mg, 2 tab, No Longer Route: PO, Drug Active 2017 [facility] form: TAB, Daily, Dosing Weight 93.182, kg, Priority: NOW, Start date: 02/22/18 14:33:00 CDT, Duration: 30 day, Stop date: 03/24/18 9:00:00 CDTNotes: (Same as: Sarita) Morphine 2 mg, Route: Inactive IVP, ONCE, 2017 [facility] Dosing Weight 93.182, kg, Start date: 02/22/18 14:12:00 CDT, Stop date: 02/22/18 14:12:00 CDT Lidocaine 0.05 1 patch, Route: No Longer MG/MG Transdermal TOP, Daily, Active 2018 [facility] Patch Drug form: FILM, Start date: 02/22/18 14:00:00 CDT, Duration: 30 day, Stop date: 03/24/18 9:00:00 CDTNotes: Apply only once for up to 12 hours in a 24-hour period (12 hours on and 12 hours off). (Same as: Lidoderm) "Remove old patch before application of new patch" Acetaminophen 325 1 tab, Route: No Longer MG / Hydrocodone PO, Drug Form: Active 2018 [facility] Bitartrate 10 MG TAB, Dosing Oral Tablet Weight 93.182, [[place] 10/325] kg, Q4H, PRN Pain Score 1-3, Start date: 02/22/18 13:01:00 CDT, Duration: 30 day, Stop date: 03/24/18 13:00:00 CDTNotes: Do not exceed 4gm/day of acetaminophen. (Same as: [place] 325/10) gabapentin 300 mg, 1 cap, No Longer Route: PO, Drug Active 2017 [facility] form: CAP, Q8H, Dosing Weight 93.182, kg, Priority: NOW, Start date: 02/22/18 13:00:00 CDT, Duration: 30 day, Stop date: 03/24/18 8:00:00 CDTNotes: (Same as: Neurontin) cefepime 1 gm, Route: Inactive IVPB, ONCE, 2017 [facility] Dosing Weight 93.182, kg, Priority: STAT, Start date: 02/22/18 8:33:00 CDT, Stop date: 02/22/18 8:33:00 CDT, ABX Indication: Pneumonia Vancomycin 1,750 mg, Inactive Route: IVPB, 2017 [facility] ONCE, Dosing Weight 93.182, kg, Priority: [...] 1 tab, Inactive Route: PO, Drug 2017 [facility] form: TABDIS, ONCE, Dosing Weight 93.182, kg, Priority: STAT, Start date: 02/22/18 7:30:00 CDT, Stop date: 02/22/18 7:30:00 CDTNotes: (Same as: Zofran ODT) Morphine 4 mg, 1 mL, Inactive Route: IVP, 2017 [facility] Drug form: SOLN, ONCE, Dosing Weight 93.182, kg, Priority: STAT, Start date: 02/22/18 7:30:00 CDT, Stop date: 02/22/18 7:30:00 CDTNotes: (Same as:MORPhine Sulfate) Morphine 1 mg, 0.25 mL, Inactive Route: IVP2017 [facility] Drug form: SOLN, Q4H, Dosing Weight 90.028, kg, PRN Pain Score 6-10, Start date: 02/19/18 14:07:00 CDT, Duration: 30 day, Stop date: 03/21/18 14:06:00 CDTNotes: (Same as:MORPhine Sulfate) Sodium Chloride 1,000 mL, Rate: Inactive 0.9% IV 1,000 mL 75 ml/hr, 2017 [facility] Infuse over: 13.3 hr, Route: IV, Dosing Weight 90.028 kg, Total Volume: 1,000, Start date: 02/19/18 11:18:00 CDT, Duration: 30 day, Stop date: 03/21/18 11:17:00 CDT, 2.06, m2 Kayexalate 15 gm, 60 mL, Inactive Route: PO, Drug 2017 [facility] form: SUSP, ONCE, Dosing Weight 90.028, kg, Start date: 02/19/18 11:04:00 CDT, Stop date: 02/19/18 11:04:00 CDTNotes: (sodium polystyrene sulfonate 15 gm/60 ml LICO) Shake well before use. (Same as: Kayexalate, SPS) Morphine 1 mg, 0.25 mL, Inactive Route: IVP2017 [facility] Drug form: SOLN, Q2H, Dosing Weight 90.028, kg, PRN Pain Score 6-10, Start date: 02/19/18 10:56:00 CDT, Duration: 30 day, Stop date: 03/21/18 10:55:00 CDTNotes: (Same as:MORPhine Sulfate) Aspirin 81 mg, 1 tab, Inactive Route: PO, Drug 2017 [facility] form: ECTAB, Daily, Dosing Weight 90.028, kg, Start date: 02/19/18 9:00:00 CDT, Duration: 30 day, Stop date: 03/20/18 9:00:00 CDTNotes: Do not crush or chew. (Same As: Ecotrin) cefuroxime + 1.5 gm, Route: Inactive sterile water 20 IVP, ABXQ8H, 2018 [facility] mL Start date: 02/18/18 22:00:00 CDT, Duration: 1 doses or times, Stop date: 02/18/18 22:00:00 CDTNotes: (Same As: Kefurox, Zinacef) MEDICATION WASTE Product Size: 1500 mg Product Wasted: __0_ mg Famotidine 20 mg, 1 tab, No Longer Route: PO, Drug Active 2017 [facility] form: TAB, Q12H, Dosing Weight 90.028, kg, Start date: 02/18/18 21:00:00 CDT, Duration: 30 day, Stop date: 03/20/18 9:00:00 CDTNotes: (Same as: Pepcid) ceFAZolin + 2 gm, Route: Inactive sterile water 20 IV, ABXQ8H, 2017 [facility] mL Start date: 02/18/18 20:00:00 CDT, Duration: 1 doses or times, Stop date: 02/18/18 20:00:00 CDT, ABX Indication: Surgical ProphylaxisNote s: (Same As: Ancef, Kefzol) MEDICATION WASTE Product Size: 1000 mg Product Wasted: ___ mg Docusate Sodium 100 mg, 1 cap, No Longer 100 MG Oral Route: PO, Drug Active 2017 [facility] Capsule form: CAP, BID, Dosing Weight 90.028, kg, Start date: 02/18/18 17:00:00 CDT, Duration: 30 day, Stop date: 03/20/18 9:00:00 CDTNotes: (Same as: Colace) (Do Not Crush) Cefazolin 1 gm, Route: Inactive IVPB, Drug 2017 [facility] form: INJ, Q8H, Dosing Weight 90.028, kg, Start date: 02/18/18 16:00:00 CDT, Duration: 1 doses or times, Stop date: 02/18/18 16:00:00 CDT, ABX Indication: Surgical Prophylaxis albuterol 1.25 mg, 3 mL, No Longer Route: NEB, Active 2017 [facility] Drug form: SOLN, Q8H, PRN Respiratory Protocol, Start date: 02/18/18 15:46:00 CDT, Duration: 30 day, Stop date: 03/20/18 15:45:00 CDTNotes: SEE RT DOCUMENTATION (Same as: Proventil) Saline Flush 0.9% 10 ml, Route: No Longer IVP, Drug Form: Active 2017 [facility] INJ, Dosing Weight 90.028, kg, PRN, PRN Line Flush, Start date: 02/18/18 15:17:00 CDT, Duration: 30 day, Stop date: 03/20/18 15:16:00 CDTNotes: (Same as: BD Posiflush) D5W 1/2NS + KCL 1,000 mL, Rate: No Longer 20mEq/L 1000ml 80 ml/hr, Active 2017 [facility] (Premix) 1,000 mL Infuse over: 12.5 hr, Route: IV, Dosing Weight 90.028 kg, Total Volume: 1,000, Start date: 02/18/18 15:17:00 CDT, Duration: 30 day, Stop date: 03/20/18 15:16:00 CDT, 2.06, [id number]: PREMIX IV - Do Not Alter WASTE: F/P - Sink; E - Municipal Trash Bin Demerol HCl 12.5 mg, 0.25 No Longer mL, Route: IM, Active 2017 [facility] Drug form: INJ, Q6H, Dosing Weight 90.028, kg, PRN Other -See Comment, Start date: 02/18/18 15:17:00 CDT, Duration: 4 day, Stop date: 02/22/18 15:16:00 CDTNotes: (Same As: Demerol) Xopenex 0.63 mg, Route: Inactive NEB, Q8H, 2017 [facility] Dosing Weight 90.028, kg, PRN Respiratory Protocol, Start date: 02/18/18 15:17:00 CDT, Duration: 30 day, Stop date: 03/20/18 15:16:00 CDT Dulcolax Laxative 5 mg, 1 tab, No Longer Route: PO, Drug Active 2017 [facility] form: ECTAB, Q24H, Dosing Weight 90.028, kg, PRN Constipation, Start date: 02/18/18 15:17:00 CDT, Duration: 30 day, Stop date: 03/20/18 15:16:00 CDTNotes: (Same As: Dulcolax, Correctol) (Do Not Crush) "Do Not Crush" Ondansetron 4 mg, 2 mL, No Longer Route: IVP, Active 2017 [facility] Drug form: INJ, Q6H, Dosing Weight 90.028, kg, PRN Nausea & Vomiting, Start date: 02/18/18 15:17:00 CDT, Duration: 30 day, Stop date: 03/20/18 15:16:00 CDTNotes: (Same as: Cynthia) MEDICATION WASTE Product Size: 4 mg Product Wasted: ___ mg Al hydroxide/Mg 30 ml, Route: No Longer hydroxide/simethi PO, Drug Form: Active 2017 [facility] cone 200 mg-200 SUSP, Dosing mg-20 mg/5 mL Weight 90.028, oral suspension kg, Q4H, PRN Indigestion, Start date: 02/18/18 15:17:00 CDT, Duration: 30 day, Stop date: 03/20/18 15:16:00 CDTNotes: (aluminum hydroxide-magne sium hyd-simethicone [phone]/5m l 30 ml ud LICO) Acetaminophen 325 1 tab, Route: No Longer MG / Hydrocodone PO, Drug Form: Active 2018 [facility] Bitartrate 5 MG TAB, Dosing Oral Tablet Weight 90.028, kg, Q4H, PRN Pain Score 4-6, Start date: 02/18/18 15:17:00 CDT, Duration: 30 day, Stop date: 03/20/18 15:16:00 CDTNotes: (Same as: [place] 325/5) Do not exceed 4gm/day of acetaminophen. Acetaminophen 650 mg, 2 tab, Inactive 05/07/ MH Route: PO, Drug 2017 [facility] form: TAB, Q4H, Dosing Weight 90.028, kg, PRN Pain 1-3/Temp > 100.4 F, Start date: 02/18/18 15:17:00 CDT, Duration: 30 day, Stop date: 03/20/18 15:16:00 CDTNotes: Do not exceed 4 gm/day. (Same as: Tylenol) acetaminophen-cod 2 tab, Route: Inactive eine #3 PO, Drug Form: 2017 [facility] TAB, Dosing Weight 90.028, kg, Q4H, [...] Route: IV, Drug Inactive form: INJ, 2017 [facility] ONCE, Stop date: 02/18/18 14:53:00 CDT fentaNYL (ANES) Route: IV, Drug Inactive form: INJ, 2017 [facility] ONCE, Stop date: 02/18/18 14:48:00 CDT lidocaine (ANES) Route: IV, Drug Inactive form: INJ, 2017 [facility] ONCE, Stop date: 02/18/18 14:48:00 CDT midazolam (ANES) Route: IV, Drug Inactive form: SOLN, 2017 [facility] ONCE, Stop date: 02/18/18 14:48:00 CDT Fentanyl 50 microgram, 1 Inactive mL, Route: IV, 2017 [facility] Drug form: INJ, Q10Min, Dosing Weight 90.028, kg, PRN Pain Score 4-6, Start date: 02/18/18 14:42:00 CDT, Duration: 3 doses or times, Stop date: Limited # of timesNotes: (Same as: Sublimaze) Preservative free. Naloxone 0.4 mg, 1 mL, Inactive Route: IVP2017 [facility] Drug form: INJ, PRN, Dosing Weight 90.028, kg, PRN Narcotic Reversal, Start date: 02/18/18 14:42:00 CDT, Duration: 30 day, Stop date: 03/20/18 14:41:00 CDTNotes: Same as Narcan Flumazenil 0.2 mg, 2 mL, Inactive Route: IVP2017 [facility] Drug form: INJ, PRN, Dosing Weight 90.028, kg, PRN Benzodiazepine Reversal, Initial dose, Start date: 02/18/18 14:42:00 CDT, Duration: 30 day, Stop date: 03/20/18 14:41:00 CDTNotes: (Same as: Romazicon) Hydromorphone 0.5 mg, 0.25 Inactive mL, Route: IVP2017 [facility] Drug form: INJ, Q5Min, Dosing Weight 90.028, kg, PRN Pain Score 7-10, Start date: 02/18/18 14:42:00 CDT, Duration: 4 doses or times, Stop date: Limited # of timesNotes: Same as Dilaudid Morphine 2 mg, 0.5 mL, Inactive Route: IVP2017 [facility] Drug form: SOLN, Q5Min, Dosing Weight 90.028, kg, PRN Pain Score 4-6, Start date: 02/18/18 14:42:00 CDT, Duration: 5 doses or times, Stop date: Limited # of timesNotes: (Same as:MORPhine Sulfate) Acetaminophen 1,000 mg, 100 Inactive mL, Route: IV, 2017 [facility] Drug form: INJ, ONCE, Dosing Weight 90.028, kg, PRN Pain Score 1-3, Start date: 02/18/18 14:42:00 CDTNotes: Infuse over 15 minutes Do not exceed 4gm/day of acetaminophen MEDICATION WASTE Product Size: 1000 mg Product Wasted: ___ mg Ondansetron 4 mg, 2 mL, Inactive Route: IVP2017 [facility] Drug form: INJ, ONCE, Dosing Weight 90.028, kg, PRN Nausea & Vomiting, Start date: 02/18/18 14:42:00 CDTNotes: (Same as: Zofran) MEDICATION WASTE Product Size: 4 mg Product Wasted: ___ mg Promethazine 6.25 mg, 0.25 Inactive mL, Route: IM, 2017 [facility] Drug form: INJ, ONCE, Dosing Weight 90.028, kg, PRN Nausea & Vomiting, Start date: 02/18/18 14:42:00 CDTNotes: Do not give IV push. (Same as: Phenergan) Dexamethasone 4 mg, 1 mL, Inactive Route: IVP2017 [facility] Drug form: INJ, ONCE, Dosing Weight 90.028, kg, PRN Nausea & Vomiting, Start date: 02/18/18 14:42:00 CDTNotes: Concentration: 4mg/ml Meperidine 12.5 mg, 0.25 Inactive mL, Route: IVP2017 [facility] Drug form: INJ, Q30Min, Dosing Weight 90.028, kg, PRN Other -See Comment, For shivering, Start date: 02/18/18 14:42:00 CDT, Duration: 2 doses or times, Stop date: Limited # of timesNotes: (Same As: Demerol) Diphenhydramine 12.5 mg, 0.25 Inactive mL, Route: IVP, 2017 [facility] Drug form: INJ, Q6H, Dosing Weight 90.028, kg, PRN Itching, Start date: 02/18/18 14:42:00 CDT, Duration: 30 day, Stop date: 03/20/18 14:41:00 CDTNotes: (Same as: Benadryl) Albuterol 0.83 2.49 mg, 3 mL, Inactive MG/ML Inhalant Route: NEB, 2017 [facility] Solution Drug form: SOLN, Q20Min, Dosing Weight 90.028, kg, PRN Wheezing, Priority: STAT, Start date: 02/18/18 14:42:00 CDT, Duration: 30 day, Stop date: 03/20/18 14:41:00 CDTNotes: SEE RT DOCUMENTATION (Same as: Proventil) Hydralazine 10 mg, 0.5 mL, Inactive Route: IVP2017 [facility] Drug form: INJ, Q20Min, Dosing Weight 90.028, kg, PRN Elevated BP, Start date: 02/18/18 14:42:00 CDT, Duration: 2 doses or times, Stop date: Limited # of timesNotes: (Same as: Apresoline) Push over 5 minutes vancomycin (ANES) Route: IV, Drug Inactive 1.5 gm form: INJ, 2017 [facility] Start date: 02/18/18 14:18:00 CDT, Stop date: 02/18/18 15:18:00 CDT Isolyte S PH 7.4 Route: IV, Inactive (ANES) 1000 mL Total Volume: 2017 [facility] 1,000, Start date: 02/18/18 14:16:00 CDT, Stop date: 02/18/18 15:16:00 CDT Lidocaine 0.5 mL, Route: No Longer Hydrochloride 10 INTRADERM, Drug Active 2017 [facility] MG/ML Injectable Form: INJ, Solution Dosing Weight 90.028, kg, ONCALL, Start date: 02/18/18 14:00:00 CDT, Duration: 1 doses or timesNotes: Preservative free. (Same as: Xylocaine MPF) Ancef + sterile 1 gm, Route: Inactive water 10 mL IVP, ONCE, 2017 [facility] Dosing Weight 90.028, kg, Start date: 02/18/18 2:39:00 CDT, Stop date: 02/18/18 2:39:00 CDT, ABX Indication: Surgical ProphylaxisNote s: (Same As: Ancef, Kefzol) MEDICATION WASTE Product Size: 1000 mg Product Wasted: ___ mg Naproxen 250 mg, 1 tab, No Longer Route: PO, Drug Active 2017 [facility] form: TAB, BID, Dosing Weight 90.028, kg, PRN Pain Score 1-3, Start date: 02/17/18 18:41:00 CDT, Duration: 30 day, Stop date: 03/19/18 18:40:00 CDTNotes: (Same as: Naprosyn) Take with food. Humalog 5 unit, 0.05 No Longer mL, Route: Active 2017 [facility] SUB-Q, Drug form: SOLN, TID-Before Meals, [...] 5 unit, 0.05 Inactive mL, Route: 2017 [facility] SUB-Q, Drug form: SOLN, TID-Before Meals, [...] No Longer Route: PO, Drug Active 2017 [facility] form: TAB, Q6H, Dosing Weight 90.028, kg, PRN Pain Score 1-5, Start date: 02/16/18 18:00:00 CDT, Duration: 30 day, Stop date: 03/18/18 12:00:00 CDTNotes: Do not exceed 4 gm/day. (Same as: Tylenol) Ibuprofen 400 mg, 1 tab, No Longer Route: PO, Drug Active 2017 [facility] form: TAB, Q4H, Dosing Weight 90.028, kg, PRN Pain Score 4-6, Start date: 02/16/18 16:57:00 CDT, Duration: 30 day, Stop date: 03/18/18 16:56:00 CDT, Pain Score 3-5Notes: (Same as: Motrin) "Do Not Crush" Give with food. Morphine 1 mg, 0.25 mL, No Longer Route: IVP, Active 2017 [facility] Drug form: SOLN, Q6H, Dosing Weight 88.636, kg, PRN Pain Score 7-10, Start date: 02/15/18 9:16:00 CDT, Duration: 30 day, Stop date: 03/17/18 9:15:00 CDTNotes: (Same as:MORPhine Sulfate) Naproxen 250 mg, 1 tab, No Longer Route: PO, Drug Active 2017 [facility] form: TAB, BID, Dosing Weight 90.028, kg, Start date: 02/15/18 9:15:00 CDT, Duration: 30 day, Stop date: 03/17/18 9:00:00 CDTNotes: (Same as: Naprosyn) Take with food. Tylenol 325 mg, 1 tab, No Longer Route: PO, Drug Active 2017 [facility] form: TAB, Q4H, Dosing Weight 90.028, kg, PRN Pain Score 1-5, Start date: 02/15/18 9:13:00 CDT, Duration: 30 day, Stop date: 03/17/18 9:12:00 CDTNotes: Do not exceed 4 gm/day. (Same as: Tylenol) Acetaminophen 325 1 tab, Route: Inactive MG / Hydrocodone PO, Drug Form: 2017 [facility] Bitartrate 5 MG TAB, Dosing Oral Tablet Weight 90.028, [[place] 5/325] kg, Q4H, PRN Pain Score 1-5, Start date: 02/14/18 11:11:00 CDT, Duration: 30 day, Stop date: 03/16/18 11:10:00 CDTNotes: (Same as: [place] 325/5) Do not exceed 4gm/day of acetaminophen. Zofran ODT 4 mg, 1 tab, No Longer Route: PO, Drug Active 2017 [facility] form: TABDIS, Q8H, Dosing Weight 90.028, kg, PRN Nausea, Start date: 02/14/18 11:08:00 CDT, Duration: 30 day, Stop date: 03/16/18 11:07:00 CDTNotes: (Same as: Zofran ODT) Docusate Sodium 100 mg, 1 cap, No Longer 100 MG Oral Route: PO, Drug Active 2017 [facility] Capsule [Colace] form: CAP, BID, Dosing Weight 90.028, kg, PRN Constipation, Start date: 02/14/18 11:08:00 CDT, Duration: 30 day, Stop date: 03/16/18 11:07:00 CDTNotes: (Same as: Colace) (Do Not Crush) Losartan 50 mg, 1 tab, No Longer Route: PO, Drug Active 2017 [facility] form: TAB, Daily, Dosing Weight 88.636, kg, Start date: 02/14/18 9:00:00 CDT, Duration: 30 day, Stop date: 03/15/18 9:00:00 CDTNotes: (Same as: Cozaar) 3 ML Insulin 56 unit, 0.56 No Longer Glargine 100 mL, Route: Active 2017 [facility] UNT/ML Prefilled SUB-Q, Drug Syringe [Lantus] form: ASHU CASTELLON, Dosing Weight 88.636, kg, Start date: 02/14/18 9:00:00 CDT, Duration: 30 day, Stop date: 03/15/18 9:00:00 CDTNotes: (Same as: Lantus) Do not hold insulin without contacting prescriber WASTE: F/P - Black; E - Municipal Trash Bin "single patient use only" Triiodothyronine 5 microgram, 1 No Longer tab, Route: PO, 2017 [facility] Drug form: TAB, Daily, Dosing Weight 88.636, kg, Start date: 02/14/18 9:00:00 CDT, Duration: 30 day, Stop date: 03/15/18 9:00:00 CDTNotes: (Same as: Cytomel) Thyroxine 50 microgram, 1 No Longer tab, Route: PO, Active 2017 [facility] Drug form: TAB, Daily, Dosing Weight 88.636, kg, Start date: 02/14/18 9:00:00 CDT, Duration: 30 day, Stop date: 03/15/18 9:00:00 CDTNotes: Take 1 hour before or 2 hours after meal; Enteral feeds may interefere with the absorption of this medication.(Eddie e as:Levothroid, Synthroid) Trazodone 25 mg, 0.5 tab, No Longer Route: PO, Drug Active 2017 [facility] form: TAB, Bedtime, Dosing Weight 88.636, kg, Start date: 02/13/18 21:00:00 CDT, Duration: 7 day, Stop date: 02/19/18 21:00:00 CDTNotes: (Same As: Desyrel) Ketorolac 7.5 mg, 0.5 mL, No Longer Route: IVP, Active 2017 [facility] Drug form: INJ, Q6H, Dosing Weight [...] 0.5 tab, Inactive Route: PO, Drug 2017 [facility] form: TAB, QID, Start date: 02/13/18 17:00:00 CDT, Duration: 4 day, Stop date: 02/17/18 13:00:00 CDTNotes: Not for use > 4 days. Give with food. (Same as:Toradol) Ketorolac 7.5 mg, 0.5 mL, Inactive Route: IVP, 2017 [facility] Drug form: INJ, ONCE, Dosing Weight 88.636, kg, Start date: 02/13/18 16:17:00 CDT, Stop date: 02/13/18 16:17:00 CDTNotes: (Same as:Toradol) IV bolus must be given >15 seconds. Give IM administration slowly and deeply into the muscle. Not for use > 4 days. Hydralazine 10 mg, 0.5 mL, No Longer Route: IVP, Active 2017 [facility] Drug form: INJ, Q6H, Dosing Weight [...] oral tablet PO, Daily, # 30 2017 [facility] tab, 0 Refill(s) 3 ML Insulin 56 unit, SUB-Q, On Hold Glargine 100 QAM 2018 [facility] UNT/ML Prefilled Syringe [Lantus] levothyroxine 50 50 microgram=1 On Hold mcg (0.05 mg) tab, PO, Daily, 2017 [facility] oral tablet # 30 tab, 0 Refill(s) liothyronine 5 5 microgram=1 On Hold mcg oral tablet tab, PO, Daily, 2017 [facility] # 30 tab, 0 Refill(s) gabapentin 100 MG 100 mg=1 cap, On Hold Oral Capsule PO, TID 2017 [facility] Dialyvite 3000 1 tab, PO, On Hold oral tablet Daily, 0 2017 [facility] Refill(s) Fenofibrate 48 MG =1 cap, PO, On Hold Oral Tablet Daily 2017 [facility] Hydralazine 50 mg=1 tab, No Longer Hydrochloride 50 PO, BID, 0 Active 2017 [facility] MG Oral Tablet Refill(s) Glucagon 1 mg, Route: No Longer IM, Drug form: Active 2017 [facility] PDR/INJ, PRN, Dosing Weight 88.636, kg, PRN Blood Glucose Results, Start date: 02/13/18 14:31:00 CDT, Duration: 30 day, Stop date: 03/15/18 14:30:00 CDT Dextrose 50% 25 gm, 50 mL, No Longer Syringe Route: IVP, Active 2017 [facility] Drug Form: INJ, Dosing Weight 88.636, kg, PRN, PRN Blood Glucose Results, Start date: 02/13/18 14:31:00 CDT, Duration: 30 day, Stop date: 03/15/18 14:30:00 CDT Insulin Lispro 2 unit, 0.02 No Longer mL, Route: Active 2017 [facility] SUB-Q, Drug form: SOLN, TID-Before Meals, [...] mg, 2 mL, No Longer Route: IVP, [facility] 2017 [facility] Drug form: INJ, Q6H, Dosing Weight 88.636, kg, PRN Nausea & Vomiting, Start date: 02/13/18 14:29:00 CDT, Duration: 30 day, Stop date: 03/15/18 14:28:00 CDTNotes: (Same as: Zofran) MEDICATION WASTE Product Size: 4 mg Product Wasted: ___ mg Morphine 1 mg, 0.25 mL, No Longer Route: IVP, Active 2017 [facility] Drug form: SOLN, Q4H, Dosing Weight 88.636, kg, PRN Pain Score 7-10, Start date: 02/13/18 14:29:00 CDT, Stop date: 03/15/18 14:28:00 CDTNotes: (Same as:MORPhine Sulfate) normal saline 1,000 mL, Rate: No Longer 0.9% IV 1,000 mL 75 ml/hr, Active 2017 [facility] Infuse over: 13.3 hr, Route: IV, Dosing Weight 88.636 kg, Total Volume: 1,000, Start date: 02/13/18 14:26:00 CDT, Duration: 30 day, Stop date: 03/15/18 14:25:00 CDT, 2.03, m2 Trazodone 25 mg, 0.5 tab, Inactive Route: PO, Drug 2017 [facility] form: TAB, Bedtime, Dosing Weight 88.636, kg, PRN Insomnia, Start date: 02/13/18 14:26:00 CDT, Duration: 7 day, Stop date: 02/20/18 14:25:00 CDTNotes: (Same As: Desyrel) Zofran ODT 4 mg, 1 tab, Inactive Route: PO, Drug 2017 [facility] form: TABDIS, ONCE, Dosing Weight 88.636, kg, Priority: STAT, Start date: 02/13/18 12:51:00 CDT, Stop date: 02/13/18 12:51:00 CDTNotes: (Same as: Zofran ODT) Morphine 2 mg, 0.5 mL, Inactive Route: IVP, 2017 [facility] Drug form: SOLN, ONCE, Dosing Weight 88.636, kg, Priority: STAT, Start date: 02/13/18 12:50:00 CDT, Stop date: 02/13/18 12:50:00 CDTNotes: (Same as:MORPhine Sulfate) Allergies, Adverse Reactions, Alerts Substance Category Reaction Severity Reaction Status Date Comments Source type Reported metoprolol Assertion Drug allergy Active [facility] Lopressor Assertion Drug allergy Active [facility] Betapace Assertion Drug allergy Active [facility] Toprol-XL Assertion Drug allergy Active [facility] metFORMIN Assertion vomiting Drug Active intolerance [facility] Immunizations Immunization Date Given Site Status Last Updated Comments Source Results Order Name Results Value Reference Date Interpretation Comments Source Range HEMATOLOGY Sed Rate 24 mm/h 0 - 20 02/23 [facility] CHEM PANEL BUN 28 mg/dL 7 - 22 02/23 [facility] CHEM PANEL Glucose Lvl 195 mg/dL 70 - 99 02/23 [facility] CHEM PANEL eGFR 54 02/23 Result [...] is not recommended in the following populations: [facility] 3m2 Individuals with unstable creatinine concentrations, [...] Lvl 109 meq/L 95 - 109 02/23 [facility] CHEM PANEL Calcium Lvl 9.7 mg/dL 8.5 - 10.5 02/23 [facility] CHEM PANEL CO2 29 meq/L 24 - 32 05/ /2017 [facility] CHEM PANEL Potassium 4.6 meq/L 3.5 - 5.1 / Lvl /2017 [facility] CHEM PANEL Creatinine 1.00 mg/dL 0.50 - 05 MH Lvl 1.40 [facility] CHEM PANEL Sodium Lvl 144 meq/L 135 - 145 02/23 [facility] CHEM PANEL AGAP 10.6 meq/L 10.0 - 05 MH 20.0 [facility] CHEM PANEL Procalcitoni null 0.00 - 05 n Lvl 0.10 [facility] HEMATOLOGY D-Dimer 1.02 ug/mL 02/22 FEU [facility] HEMATOLOGY PT 14.6 s 12.0 - 02/22 MH 14.7 [facility] HEMATOLOGY INR 1.14 0.85 - 02/22 MH 1.17 [facility] HEMATOLOGY PTT 31.0 s 22.9 - 02/22 MH 35.8 /2017 [facility] CARDIAC Troponin-I null 0.00 - 02/22 ENZYMES 0.40 [facility] CARDIAC Total CK 73 unit/L 12 - 191 02/22 ENZYMES /2017 [facility] CHEM PANEL Lactic Acid 0.8 mMol/L 0.5 - 2.2 02/22 Lvl [facility] ELECTROLYT AGAP 12.9 meq/L 10.0 - 02/22 ES 20.0 [facility] ELECTROLYT eGFR 48 02/22 Result Comment: [...] is not recommended in the following populations: [facility] 3m2 Individuals with unstable creatinine concentrations, [...] 3.5 - 5.1 02/22 ES Lvl /2017 [facility] ELECTROLYT Sodium Lvl 139 meq/L 135 - 145 02/22 ES [facility] ELECTROLYT Creatinine 1.10 mg/dL 0.50 - 02/22 ES Lvl 1.40 [facility] ELECTROLYT BUN 30 mg/dL 7 - 22 02/22 ES [facility] ELECTROLYT Glucose Lvl 160 mg/dL 70 - 99 02/22 [facility] ELECTROLYT Calcium Lvl 9.9 mg/dL 8.5 - 10.5 02/22 ES [facility] ELECTROLYT CO2 23 meq/L 24 - 32 02/22 ES [facility] ELECTROLYT Chloride Lvl 107 meq/L 95 - 109 02/22 ES [facility] HEMATOLOGY MPV 7.4 fL 7.4 - 10.4 02/22 [facility] HEMATOLOGY Hct 36.3 % 36.0 - 02/22 48.0 [facility] HEMATOLOGY MCV 83.5 fL 80.0 - 02/22 98.0 [facility] HEMATOLOGY Hgb 11.5 g/dL 12.0 - 02/22 16.0 [facility] HEMATOLOGY RBC 4.34 M/CMM 4.20 - 02/22 5.40 /2017 [facility] HEMATOLOGY RDW 15.8 % 11.5 - 02/22 14.5 [facility] HEMATOLOGY Platelet 272 K/CMM 133 - 450 02/22 [facility] HEMATOLOGY MCH 26.5 pg 27.0 - 02/22 31.0 [facility] HEMATOLOGY MCHC 31.7 g/dL 32.0 - 02/22 36.0 [facility] HEMATOLOGY WBC 12.7 K/CMM 3.7 - 10.4 02/22 [facility] HEMATOLOGY Eosinophils 0.4 K/CMM 0.0 - 0.5 02/22 MH # /2017 [facility] HEMATOLOGY Monocytes # 1.3 K/CMM 0.0 - 0.8 02/22 [facility] HEMATOLOGY Basophils # 0.1 K/CMM 0.0 - 0.2 02/22 [facility] HEMATOLOGY Segs-Bands # 7.1 K/CMM 1.5 - 8.1 02/22 [facility] HEMATOLOGY Lymphocytes 3.9 K/CMM 1.0 - 5.5 02/22 # /2017 [facility] HEMATOLOGY Eosinophils 2.8 % 0.0 - 4.0 02/22 [facility] HEMATOLOGY Monocytes 9.9 % 2.0 - 12.0 02/22 [facility] HEMATOLOGY Basophils 0.4 % 0.0 - 1.0 02/22 [facility] HEMATOLOGY Segs 56.2 % 45.0 - 02/22 MH 75.0 [facility] HEMATOLOGY Lymphocytes 30.7 % 20.0 - 02/22 MH 40.0 [facility] Chest Chest 1view Clinical Indication: L chest pain s/p removal of sternotomy wires 02/22 - 1view DX DX /2017 - [facility] Comparison: February 18, 2018 Read by: [...] left lower lobe atelectasis versus pneumonia. SL: [id number] CHEM PANEL eGFR 36 02/19 Result Comment: [...] is not recommended in the following populations: [facility] 3m2 Individuals with unstable creatinine concentrations, [...] CO2 20 meq/L 24 - 32 02/19 [facility] CHEM PANEL Calcium Lvl 9.3 mg/dL 8.5 - 10.5 02/19 [facility] CHEM PANEL Potassium 5.5 meq/L 3.5 - 5.1 / MH Lvl /2017 [facility] CHEM PANEL Chloride Lvl 105 meq/L 95 - 109 05 [facility] CHEM PANEL AGAP 14.5 meq/L 10.0 - 02/19 MH 20.0 [facility] CHEM PANEL Sodium Lvl 134 meq/L 135 - 145 05 [facility] CHEM PANEL Creatinine 1.40 mg/dL 0.50 - 05 MH Lvl 1.40 /2017 [facility] CHEM PANEL BUN 29 mg/dL 7 - 22 02/19 [facility] CHEM PANEL Glucose Lvl 325 mg/dL 70 - 99 02/19 [facility] HEMATOLOGY RBC Morph Normal 02/19 [facility] (02/19/18 6:40 AM) HEMATOLOGY Monocytes 5.3 % 2.0 - 12.0 02/19 [facility] HEMATOLOGY Basophils 0.3 % 0.0 - 1.0 02/19 [facility] HEMATOLOGY Lymphocytes 9.1 % 20.0 - 02/19 40.0 [facility] HEMATOLOGY Segs 85.3 % 45.0 - 02/19 75.0 [facility] HEMATOLOGY Plt Morph Normal 02/19 [facility] (02/19/18 6:40 AM) HEMATOLOGY Basophils # 0.1 K/CMM 0.0 - 0.2 02/19 [facility] HEMATOLOGY Segs-Bands # 13.4 K/CMM 1.5 - 8.1 02/19 [facility] HEMATOLOGY Monocytes # 0.8 K/CMM 0.0 - 0.8 02/19 [facility] HEMATOLOGY Lymphocytes 1.4 K/CMM 1.0 - 5.5 02/19 MH /2017 [facility] HEMATOLOGY WBC 15.7 K/CMM 3.7 - 10.4 02/19 [facility] HEMATOLOGY Hct 34.1 % 36.0 - 02/19 48.0 [facility] HEMATOLOGY Hgb 11.4 g/dL 12.0 - 05/ MH 16.0 /2017 [facility] HEMATOLOGY RBC 4.12 M/CMM 4.20 - 05/ MH 5.40 [facility] HEMATOLOGY MCHC 33.4 g/dL 32.0 - 05/ MH 36.0 [facility] HEMATOLOGY RDW 15.7 % 11.5 - 05/08 MH 14.5 [facility] HEMATOLOGY MCH 27.6 pg 27.0 - 02/19 31.0 [facility] HEMATOLOGY Platelet 204 K/CMM 133 - 450 02/19 [facility] HEMATOLOGY MCV 82.6 fL 80.0 - 02/19 98.0 [facility] HEMATOLOGY MPV 7.6 fL 7.4 - 10.4 02/19 [facility] Chest Chest 1view Clinical Indication: - post op; 02/18 - 1view DX DX - [facility] Comparison: 02/13/2018 Read by: [place] [...] BANK ABO/Rh A NEG 02/18 RESULTS /2017 [facility] BLOOD BANK Antibody Negative 02/18 RESULTS Scrn [facility] (02/18/18 5:00 AM) CHEM PANEL eGFR [...] is not recommended in the following populations: [facility] 3m2 Individuals with unstable creatinine concentrations, [...] AGAP 9.3 meq/L 10.0 - 02/18 20. [facility] CHEM PANEL Calcium Lvl 9.7 mg/dL 8.5 - 10.5 02/18 [facility] CHEM PANEL Chloride Lvl 108 meq/L 95 - 109 02/18 [facility] CHEM PANEL CO2 28 meq/L 24 - 32 02/18 [facility] CHEM PANEL Potassium 4.3 meq/L 3.5 - 5.1 02/18 MH Lvl /2017 [facility] CHEM PANEL BUN 30 mg/dL 7 - 22 02/18 [facility] CHEM PANEL Glucose Lvl 121 mg/dL 70 - 99 02/18 [facility] CHEM PANEL Creatinine 1.40 mg/dL 0.50 - 05 MH Lvl 1.40 /2017 [facility] CHEM PANEL Sodium Lvl 141 meq/L 135 - 145 02/18 [facility] HEMATOLOGY Eosinophils 0.4 K/CMM 0.0 - 0.5 02/18 [facility] HEMATOLOGY Basophils # 0.1 K/CMM 0.0 - 0.2 02/18 [facility] HEMATOLOGY Lymphocytes 24.1 % 20.0 - 02/18 40.0 [facility] HEMATOLOGY Segs 64.4 % 45.0 - 02/18 75.0 [facility] HEMATOLOGY Monocytes 7.4 % 2.0 - 12.0 02/18 [facility] HEMATOLOGY Lymphocytes 2.7 K/CMM 1.0 - 5.5 02/18 [facility] HEMATOLOGY Monocytes # 0.8 K/CMM 0.0 - 0.8 02/18 [facility] HEMATOLOGY Eosinophils 3.5 % 0.0 - 4.0 02/18 [facility] HEMATOLOGY Segs-Bands # 7.1 K/CMM 1.5 - 8.1 02/18 [facility] HEMATOLOGY Basophils 0.6 % 0.0 - 1.0 02/18 [facility] HEMATOLOGY RBC 4.41 M/CMM 4.20 - 02/18 MH 5.40 [facility] HEMATOLOGY WBC 11.0 K/CMM 3.7 - 10.4 02/18 [facility] HEMATOLOGY RDW 15.6 % 11.5 - 02/18 14.5 [facility] HEMATOLOGY Platelet 265 K/CMM 133 - 450 02/18 [facility] HEMATOLOGY MCHC 32.1 g/dL 32.0 - 02/18 MH 36.0 [facility] HEMATOLOGY MPV 7.5 fL 7.4 - 10.4 02/18 [facility] HEMATOLOGY Hgb 11.7 g/dL 12.0 - 02/18 16.0 [facility] HEMATOLOGY MCH 26.5 pg 27.0 - 02/18 31.0 [facility] HEMATOLOGY MCV 82.7 fL 80.0 - 02/18 98.0 [facility] HEMATOLOGY Hct 36.5 % 36.0 - 02/18 48.0 [facility] BLOOD BANK RBC product Product available 1 02/18 Result Comment: 2017 08:02 [id number] Blood available, notified DEL-SAAD,N at 02/18/2018 08:02 _ by SH_. [facility] (02/17/18 11:57 PM) CHEM PANEL eGFR [...] is not recommended in the following populations: [facility] 3m2 Individuals with unstable creatinine concentrations, [...] AST 20 unit/L 0 - 37 02/17 [facility] CHEM PANEL B/C Ratio 21 6 - 25 02/17 [facility] CHEM PANEL AGAP 8.7 meq/L 10.0 - 05 MH 20.0 [facility] CHEM PANEL Bili Total 0.4 mg/dL 0.2 - 1.3 02/17 [facility] CHEM PANEL Alk Phos 49 unit/L 39 - 136 02/17 [facility] CHEM PANEL A/G Ratio 0.9 0.7 - 1.6 02/17 [facility] CHEM PANEL Globulin 3.5 g/dL 2.7 - 4.2 02/17 [facility] CHEM PANEL ALT 21 unit/L 0 - 65 02/17 [facility] CHEM PANEL Albumin Lvl 3.2 g/dL 3.5 - 5.0 05 [facility] CHEM PANEL Total 6.7 g/dL 6.4 - 8.4 05 Protein [facility] CHEM PANEL Calcium Lvl 9.7 mg/dL 8.5 - 10.5 02/17 [facility] CHEM PANEL Creatinine 1.20 mg/dL 0.50 - 05/ MH Lvl 1.40 /2017 [facility] CHEM PANEL Glucose Lvl 200 mg/dL 70 - 99 02/17 [facility] CHEM PANEL BUN 25 mg/dL 7 - 22 02/17 [facility] CHEM PANEL CO2 28 meq/L 24 - 32 02/17 [facility] CHEM PANEL Sodium Lvl 141 meq/L 135 - 145 02/17 [facility] CHEM PANEL Chloride Lvl 109 meq/L 95 - 109 02/17 [facility] CHEM PANEL Potassium 4.7 meq/L 3.5 - 5.1 02/17 Lvl [facility] HEMATOLOGY MPV 7.7 fL 7.4 - 10.4 05 [facility] HEMATOLOGY RDW 15.6 % 11.5 - 05 14.5 [facility] HEMATOLOGY Platelet 185 K/CMM 133 - 450 05 [facility] HEMATOLOGY MCH 27.9 pg 27.0 - 05 31.0 [facility] HEMATOLOGY MCV 81.7 fL 80.0 - 02/17 98.0 [facility] HEMATOLOGY MCHC 34.1 g/dL 32.0 - 05 36.0 [facility] HEMATOLOGY RBC 4.10 M/CMM 4.20 - 05 MH 5.40 [facility] HEMATOLOGY WBC 7.8 K/CMM 3.7 - 10.4 05 [facility] HEMATOLOGY Hct 33.5 % 36.0 - 02/17 MH 48.0 [facility] HEMATOLOGY Hgb 11.4 g/dL 12.0 - 02/17 16.0 [facility] CHEM PANEL Total 6.5 g/dL 6.4 - 8.4 02/15 Protein [facility] CHEM PANEL Albumin Lvl 3.0 g/dL 3.5 - 5.0 02/15 [facility] CHEM PANEL ALT 24 unit/L 0 - 65 02/15 [facility] CHEM PANEL Bili Total 0.3 mg/dL 0.2 - 1.3 02/15 [facility] CHEM PANEL Alk Phos 45 unit/L 39 - 136 02/15 [facility] CHEM PANEL A/G Ratio 0.9 0.7 - 1.6 02/15 [facility] CHEM PANEL AST 23 unit/L 0 - 37 02/15 [facility] CHEM PANEL Globulin 3.5 g/dL 2.7 - 4.2 02/15 [facility] CHEM PANEL B/C Ratio 25 6 - 25 02/15 [facility] URINE AND UA Ketones Negative Negative 02/15 [facility] mg/dL mg/dL [facility] URINE AND UA Bili Negative Negative 02/15 STOOL [facility] *NA* (02/15/18 3:59 AM) URINE AND UA Sq Epi Occasional Few /LPF 02/15 [facility] /LPF /2017 [facility] URINE AND UA RBC 9 /HPF 0 - 2 02/15 [facility] URINE AND UA Blood Small Negative 02/15 [facility] *ABN* (02/15/18 3:59 AM) URINE AND UA Glucose Negative Negative 02/15 [facility] mg/dL mg/dL [facility] URINE AND UA Nitrite Negative Negative 02/15 STOOL [facility] (02/15/18 3:59 AM) URINE AND UA null 0.1 - 1.0 02/15 [facility] Urobilinogen [facility] URINE AND UA WBC 7 /HPF 0 - 5 02/15 STOOL [facility] URINE AND UA Leuk Est Negative Negative 02/15 STOOL [facility] (02/15/18 3:59 AM) URINE AND UA Color Ltyellow 02/15 [facility] URINE AND UA Turbidity Clear Clear 02/15 STOOL [facility] (02/15/18 3:59 AM) URINE AND UA Protein Negative Negative 02/15 [facility] mg/dL mg/dL [facility] URINE AND UA pH 6.0 5.0 - 8.0 02/15 [facility] URINE AND UA Spec Grav 1.015 <=1.030 02/15 STOOL [facility] HEMATOLOGY Monocytes 10.5 % 2.0 - 12.0 02/14 [facility] HEMATOLOGY Basophils 0.4 % 0.0 - 1.0 02/14 [facility] HEMATOLOGY Eosinophils 4.7 % 0.0 - 4.0 02/14 MH /2018 [facility] HEMATOLOGY Eosinophils 0.4 K/CMM 0.0 - 0.5 05/ MH # /2018 [facility] HEMATOLOGY Monocytes # 0.9 K/CMM 0.0 - 0.8 02/14 MH /2017 [facility] HEMATOLOGY Segs-Bands # 5.2 K/CMM 1.5 - 8.1 / MH /2017 [facility] HEMATOLOGY Lymphocytes 2.4 K/CMM 1.0 - 5.5 / MH # /2018 [facility] HEMATOLOGY Lymphocytes 27.0 % 20.0 - 05/ MH 40.0 /2018 [facility] HEMATOLOGY Segs 57.4 % 45.0 - 05/ MH 75.0 /2018 [facility] CARDIAC CK MB Index 1.6 0.0 - 2.5 02/13 ENZYMES /2017 [facility] CARDIAC Total CK 215 unit/L 12 - 191 02/13 ENZYMES /2018 [facility] CARDIAC CK MB 3.4 ng/mL 0.5 - 3.6 02/13 ENZYMES /2017 [facility] CARDIAC Troponin-I null 0.00 - 02/13 ENZYMES 0.40 /2017 [facility] CHEM PANEL Phosphorus 3.7 mg/dL 2.5 - 4.5 02/13 /2017 [facility] CHEM PANEL Magnesium 2.2 mg/dL 1.8 - 2.4 / Lvl /2017 [facility] HEMATOLOGY Eosinophils 2.7 % 0.0 - 4.0 02/13 MH /2017 [facility] HEMATOLOGY Eosinophils 0.3 K/CMM 0.0 - 0.5 / MH # /2018 [facility] HEMATOLOGY Basophils # 0.1 K/CMM 0.0 - 0.2 02/13 MH /2017 [facility] HEMATOLOGY INR 1.15 0.85 - 02/13 1.17 /2017 [facility] HEMATOLOGY PT 14.7 s 12.0 - / 14.7 /2018 [facility] HEMATOLOGY PTT 30.1 s 22.9 - 02/13 35.8 /2018 [facility] Chest 2 Chest 2 CHEST TWO VIEW 02/13 - views DX views - [facility] INDICATION: Weakness and chest pain. Read [...] No acute process evident. END IMPRESSION : [id number] Vital Signs Vital Sign Value Date Comments Source Temperature Oral (F) 98.8 F 02/24/2018 [facility] Heart Rate 63 02/24/2018 [facility] Systolic (mm Hg) 154 02/24/2018 [facility] Diastolic (mm Hg) 70 02/24/2018 [facility] Respitory Rate 18 02/24/2018 [facility] Temperature Oral (F) 98.5 F 02/24/2018 [facility] Systolic (mm Hg) 152 02/24/2018 [facility] Diastolic (mm Hg) 68 02/24/2018 [facility] Respitory Rate 18 02/24/2018 [facility] Heart Rate 72 02/24/2018 [facility] Heart Rate 78 02/24/2018 [facility] Temperature Oral (F) 97.6 F 02/24/2018 [facility] Systolic (mm Hg) 155 02/24/2018 [facility] Diastolic (mm Hg) 76 02/24/2018 [facility] Respitory Rate 20 02/24/2018 [facility] Weight 86.364 02/22/2018 [facility] BMI Calculated 32.68 02/22/2018 [facility] Height 162.56 cm 02/22/2018 [facility] Height 165.1 cm 02/22/2018 [facility] BMI Calculated 34.19 02/22/2018 [facility] Weight 93.182 02/22/2018 [facility] Respitory Rate 18 02/19/2018 [facility] Systolic (mm Hg) 125 02/19/2018 [facility] Diastolic (mm Hg) 68 02/19/2018 [facility] Heart Rate 70 02/19/2018 [facility] Temperature Oral (F) 98.2 F 02/19/2018 [facility] Respitory Rate 18 02/19/2018 [facility] Systolic (mm Hg) 114 02/19/2018 [facility] Diastolic (mm Hg) 66 02/19/2018 [facility] Heart Rate 70 02/19/2018 [facility] Temperature Oral (F) 98.4 F 02/19/2018 [facility] Respitory Rate 18 02/19/2018 [facility] Heart Rate 70 02/19/2018 [facility] Systolic (mm Hg) 148 02/19/2018 [facility] Diastolic (mm Hg) 66 02/19/2018 [facility] Temperature Oral (F) 97.6 F 02/19/2018 [facility] Weight 90.028 02/14/2018 [facility] BMI Calculated 33.03 02/14/2018 [facility] Height 165.1 cm 02/14/2018 [facility] Weight 90.028 02/14/2018 [facility] Weight 88.636 02/13/2018 [facility] Encounters Location Location Encounter Encounter Reason Attending ADM DC Status Source Details Type Number For Provider Date Date Visit [facility] Inpatient [id number] Ashish 02/13 02/19 [facility] /2017 [facility] [id number] Ashish 02/22 02/24 [facility] /2017 [facility] Procedures Procedure Code Date Perfomer Comments Source Aortic valve [id number] [facility] replacement Appendectomy [id number] [facility] Operation on [id number] [facility] shoulder joint Partial lobectomy [id number] [facility] thyroid
--- OUTSIDE RECORDS SUMMARY | 2019-01-22 10:20 | XMS REPORT ---
:1940 Author Organization eClinicalWorks Care Team Providers Name Role Phone Blaine Muhammad Provider Role Unavailable Allergies, Adverse Reactions, Alerts Substance Reaction Event Type statin Info Not Available Drug Allergy Metformin HCl Info Not Available Drug Allergy Problems Problem Type Condition Code Onset Dates Condition Status Assessment Pain in joint, foot, left M25.572 Active Assessment Closed nondisplaced fracture of S92.414A Active proximal phalanx of right great toe, initial encounter Medications Medication Code Code Instructions Start End Date Status Dosage System Date Gabapentin [facility] 40634-54 Active not defined 40-01 HydrALAZINE HCl [facility] 74001-78 Active not defined 34-15 Liothyronine Sodium [facility] 19150-78 Active not defined 51-01 Fenofibrate [facility] 61010-48 Active not defined 23-10 Dialyvite 3000 [facility] 09742-96 Active not defined 14-09 Levothyroxine [facility] 08571-50 Active not defined Sodium 01-01 Nitrofurantoin [facility] 04078-07 Active not defined Monohyd Macro 22-01 Ezetimibe [facility] 25899-02 Active not defined 13-05 Xarelto [facility] 56276-62 Active not defined 77-10 Results No Known Results Summary Purpose eClinicalWorks Submission
[2019-01-22 11:07] LABS: Absolute Lymphocytes (CBC) 3.1 K/uL (0.7-4.9); Absolute Monocytes 0.9 K/uL (0.1-1.3); Absolute Neutrophil 4.7 K/uL (1.8-8.0); Basophils % 0.6 % (0-1.3); Eosinophils % 2.6 % (0-4.4); Lymphocytes % 34.7 % (15.3-44.8); MPV 7.7 fL (7.6-11.3); Monocytes % 9.8 % (3.3-12.3); Protime INR 3.02; RBC Red Blood Cell Count 4.39 M/uL (3.86-4.86)
[2019-01-22 11:19] LABS: ALT/SGPT 25 U/L (12-78); AST/SGOT 29 U/L (15-37); Albumin 3.6 g/dL (3.4-5.0); Alkaline Phosphatase 49 U/L (45-117); BUN Blood Urea Nitrogen 32 mg/dL (7-18); Bicarbonate 29 mmol/L (21-32); Bilirubin Direct 0.1 mg/dL (0-0.2); Bilirubin Total 0.3 mg/dL (0.2-1.0); Glucose Level 195 mg/dL (74-106); Magnesium 2.1 mg/dL (1.8-2.4); NT PRO-BNP 1789 pg/mL (<450); Protein, Total 6.9 g/dL (6.4-8.2); Sodium Level 144 mmol/L (136-145); Troponin (Emerg Dept Use Only) < 0.02 ng/mL (0.0-0.045)
--- NOTE | 2019-01-22 11:57 | RAD REPORT ---
EXAM DESCRIPTION: RAD - Chest Single View - 01/22/2019 11:30 am CLINICAL HISTORY: Palpitations, chest discomfort COMPARISON: September 23, 2018 TECHNIQUE: AP portable chest image was obtained 1125 hours . FINDINGS: Lung volumes are low accentuating the baseline interstitial fibrotic pattern. No periphera l mass or consolidation. Vasculature is accentuated by the shallow inspiration. Significant failure o r volume overload are doubtful. Heart size is normal. Surgical changes are noted. Degenerative bone a nd postsurgical right shoulder changes also noted. No measurable pleural effusion and no pneumothorax . No acute aortic findings suspected. IMPRESSION: Shallow inspiration film showing no acute cardiopulmonary finding. Prominent interstitial pattern is similar to September 2018.
[2019-01-22] MEDS ORDERED: NA CHLORIDE 0.9% 500 ML ONE (12:06)
--- NOTE | 2019-01-22 12:18 | ER ---
Nurse's Notes [facility] Name: Lynda Esquivel Age: 78 yrs Sex: Female : 1940 Arrival Date: 01/22/2019 Time: 10:10 Bed 19 Private MD: Олег Calhoun V Diagnosis: Palpitations Presentation: 01/22 10:15 Presenting complaint: Patient states: i am burping and im not a burper, my heart feels tw2 like is rushing Child states: she has had afib and is medicine, today she feels like is rapid and rushing since 7am, she feels palpitations. Transition of care: patient was not received from another setting of care. Onset of symptoms was January 22, 2019. Risk Assessment: Do you want to hurt yourself or someone else? Patient reports no desire to harm self or others. Initial Sepsis Screen: Does the patient meet any 2 criteria? No. Patient's initial sepsis screen is negative. Does the patient have a suspected source of infection? No. Patient's initial sepsis screen is negative. Care prior to arrival: None. 10:15 Method Of Arrival: Wheelchair tw2 10:15 Acuity: SHANIQUA 2 tw2 Triage Assessment: 10:17 General: Appears obese, Behavior is anxious. Pain: Denies pain. Cardiovascular: Reports tw2 palpitations. GI: Reports "burping". Historical: - Allergies: 10:19 metformin; tw2 10:19 Gnkupuq-Bvi-Ttp Reductase Inhibitors; tw2 - Home Meds: 10:19 Xarelto 15 mg Oral tab daily [Active]; levothyroxine oral [Active]; Lantus Sub-Q tw2 [Active]; Bystolic 5 mg Oral tab 1 tab once daily [Active]; Humalog Sub-Q [Active]; - PMHx: 10:19 Diabetes - IDDM; Hypertension; Hypothyroidism; pulmonary fibrosis; Renal Disease; tw2 Atrial Fib; - PSHx: 10:19 CABG; tw2 - Immunization history:: Adult Immunizations. - Social history:: Smoking status: . - Ebola Screening: : Patient denies travel to an Ebola-affected area in the 21 days before illness onset. Screenin:29 Abuse screen: Denies threats or abuse. Denies injuries from another. Nutritional sv screening: No deficits noted. Tuberculosis screening: No symptoms or risk factors identified. Fall Risk None identified. Assessment: 10:50 General: Appears in no apparent distress. uncomfortable, well developed, Behavior is sv calm, cooperative, appropriate for age. Pain: Denies pain. Neuro: Level of Consciousness is awake, alert, obeys commands, Oriented to person, place, time, situation, Moves all extremities. Full function Speech is normal. Cardiovascular: Reports chest pressure. Respiratory: Airway is patent Respiratory effort is even, unlabored, Respiratory pattern is regular, symmetrical, Breath sounds are clear bilaterally. GI: Reports belching, which is not normal for her. Derm: Skin is pink, warm \\T\\ dry. 11:56 Reassessment: Patient appears in no apparent distress at this time. No changes from sv previously documented assessment. Patient and/or family updated on plan of care and expected duration. Pain level reassessed. Patient is alert, oriented x 3, equal unlabored respirations, skin warm/dry/pink. 12:48 Reassessment: Patient appears in no apparent distress at this time. No changes from sv previously documented assessment. Patient and/or family updated on plan of care and expected duration. Pain level reassessed. Patient is alert, oriented x 3, equal unlabored respirations, skin warm/dry/pink. Vital Signs: 10:17 BP 134 / 54; Pulse 63; Resp 18; Temp 97.8(TE); Pulse Ox 97% on R/A; Weight 71.67 kg (R);tw2 11:36 BP 116 / 55; Pulse 62; Resp 15; Pulse Ox 96% on R/A; sv ED Course: 10:10 Patient arrived in ED. mr 10:11 Олег Calhoun MD is Private Physician. mr 10:17 Triage completed. tw2 10:18 Arm band placed on. EKG completed in triage. Results shown to MD. tw2 10:23 Stefan Grace NP is [facility]. pm1 10:24 Luis Iniguez MD is Attending Physician. pm1 10:28 Jeannie Choudhury RN is Primary Nurse. sv 10:29 Patient has correct armband on for positive identification. Bed in low position. Call sv light in reach. Side rails up X 1. Adult w/ patient. personnel monitor on. Pulse ox on. NIBP on. Door closed. Head of bed elevated. 10:40 EKG done, by vein access technician. reviewed by Luis Iniguez MD. dt2 10:50 Initial lab(s) drawn, by me, sent to lab. Inserted saline lock: 22 gauge in left sv antecubital area, using aseptic technique. Blood collected. Flushed left antecubital with 5 ml normal saline. 11:27 X-ray completed. Portable x-ray completed in exam room. jr1 11:30 XRAY Chest (1 view) In Process Unspecified. EDMS 12:48 No provider procedures requiring assistance completed. IV discontinued, intact, sv bleeding controlled, No redness/swelling at site. Pressure dressing applied. Administered Medications: 11:56 Drug: NS 0.9% 500 ml Route: IV; Rate: bolus; Site: left antecubital; sv Outcome: 12:18 Discharge ordered by MD. pm1 12:48 Patient left the ED. sv 12:48 Discharged to home via wheelchair, with family. sv 12:48 Condition: stable 12:48 Discharge instructions given to patient, Instructed on discharge instructions, follow up and referral plans. Demonstrated understanding of instructions, follow-up care. Signatures: Dispatcher [employer] EDMS Jeannie Choudhury, TRUDY RN sv Ced Candice LangfordNa jr1 Stefan Grace, KIAN LENS SILVERER pm1 Kely Armstrong RN RN tw2 Mari Jorge dt2
--- NOTE | 2019-01-22 12:18 | EDPHYS ---
Physician Documentation [facility] Name: Lynda Esquivel Age: 78 yrs Sex: Female : 1940 Arrival Date: 01/22/2019 Time: 10:10 Bed 19 Private MD: Олег Calhoun V ED Physician Luis Iniguez HPI: 01/22 10:35 This 78 yrs old Female presents to ER via Wheelchair with complaints of pm1 Palpitations. 10:35 The patient presents with a history of heart racing. Context: The symptoms occur at pm1 rest, without known cause. Onset: The symptoms/episode began/occurred this morning. Duration: The patient or guardian reports a single episode, that is now resolved. Modifying factors: The symptoms are aggravated by nothing. The symptoms are alleviated by nothing. Associated signs and symptoms: Pertinent negatives: chest pain, cough, SOB, vomiting. Severity of symptoms: in the emergency department the symptoms have resolved Pain is currently a 0 / 10. The patient has not experienced similar symptoms in the past. Historical: - Allergies: 10:19 metformin; tw2 10:19 Wqsnazz-Nsh-Myo Reductase Inhibitors; tw2 - Home Meds: 10:19 Xarelto 15 mg Oral tab daily [Active]; levothyroxine oral [Active]; Lantus Sub-Q tw2 [Active]; Bystolic 5 mg Oral tab 1 tab once daily [Active]; Humalog Sub-Q [Active]; - PMHx: 10:19 Diabetes - IDDM; Hypertension; Hypothyroidism; pulmonary fibrosis; Renal Disease; tw2 Atrial Fib; - PSHx: 10:19 CABG; tw2 - Immunization history:: Adult Immunizations. - Social history:: Smoking status: . - Ebola Screening: : Patient denies travel to an Ebola-affected area in the 21 days before illness onset. ROS: 10:35 Constitutional: Negative for fever, chills, and weight loss, Eyes: Negative for injury, pm1 pain, redness, and discharge, ENT: Negative for injury, pain, and discharge, Neck: Negative for injury, pain, and swelling, Respiratory: Negative for shortness of breath, cough, wheezing, and pleuritic chest pain. 10:35 Abdomen/GI: Negative for abdominal pain, nausea, vomiting, diarrhea, and constipation, Back: Negative for injury and pain, : Negative for injury, bleeding, discharge, and swelling, MS/Extremity: Negative for injury and deformity, Skin: Negative for injury, rash, and discoloration, Neuro: Negative for headache, weakness, numbness, tingling, and seizure. 10:35 Cardiovascular: Positive for palpitations, Negative for chest pain, edema, orthopnea. Exam: 10:35 Constitutional: This is a well developed, well nourished patient who is awake, alert, pm1 and in no acute distress. Head/Face: Normocephalic, atraumatic. Eyes: Pupils equal round and reactive to light, extra-ocular motions intact. Lids and lashes normal. Conjunctiva and sclera are non-icteric and not injected. Cornea within normal limits. Periorbital areas with no swelling, redness, or edema. ENT: Nares patent. No nasal discharge, no septal abnormalities noted. Tympanic membranes are normal and external auditory canals are clear. Oropharynx with no redness, swelling, or masses, exudates, or evidence of obstruction, uvula midline. Mucous membranes moist. Neck: Trachea midline, no thyromegaly or masses palpated, and no cervical lymphadenopathy. Supple, full range of motion without nuchal rigidity, or vertebral point tenderness. No Meningismus. Chest/axilla: Normal chest wall appearance and motion. Nontender with no deformity. No lesions are appreciated. Cardiovascular: Regular rate and rhythm with a normal S1 and S2. No gallops, murmurs, or rubs. Normal PMI, no JVD. No pulse deficits. Respiratory: Lungs have equal breath sounds bilaterally, clear to auscultation and percussion. No rales, rhonchi or wheezes noted. No increased work of breathing, no retractions or nasal flaring. Abdomen/GI: Soft, non-tender, with normal bowel sounds. No distension or tympany. No guarding or rebound. No evidence of tenderness throughout. Back: No spinal tenderness. No costovertebral tenderness. Full range of motion. Skin: Warm, dry with normal turgor. Normal color with no rashes, no lesions, and no evidence of cellulitis. MS/ Extremity: Pulses equal, no cyanosis. Neurovascular intact. Full, normal range of motion. 10:35 Neuro: Orientation: is normal, Motor: is normal, moves all fours. Vital Signs: 10:17 BP 134 / 54; Pulse 63; Resp 18; Temp 97.8(TE); Pulse Ox 97% on R/A; Weight 71.67 kg (R);tw2 11:36 BP 116 / 55; Pulse 62; Resp 15; Pulse Ox 96% on R/A; sv MDM: 10:35 Patient medically screened. pm1 11:30 ED course: Discussed lab findings with the patient. Patient reports weight loss of 40 pm1 pounds over the past 3 months. She is still taking the same dosage of levothyroxine during her weight loss. TSH is 0.29 and her dosage of levothyroxine is the likely cause of the patient's palpitations. 11:58 Data reviewed: vital signs. Data interpreted: Pulse oximetry: on room air is 96 %. pm1 Interpretation: normal. 12:00 ED course: BNP elevated, likely caused by history of pulmonary fibrosis. Patient pm1 without history of CHF. BUN elevated, will give IV fluids. Mild dehydration might be cause for palpitations also.. 12:02 Counseling: I had a detailed discussion with the patient and/or guardian regarding: the pm1 historical points, exam findings, and any diagnostic results supporting the discharge/admit diagnosis, lab results, radiology results, the need for outpatient follow up, further management of levothyroxine dosage, to return to the emergency department if symptoms worsen or persist or if there are any questions or concerns that arise at home. 12:02 ED course: Patient does not know her current levothyroxine dosage. If she knew it I pm1 would give a prescription of decreased dose of levothyroxine. Therefore I asked the patient to hold her dosage of levothyroxine tomorrow and to call/follow up with her PCP for management of her levothyroxine. 01/22 10:35 Order name: Basic Metabolic Panel; Complete Time: 11: pm01/22 10:35 Order name: CBC with Diff; Complete Time: 11: pm01/22 10:35 Order name: LFT's; Complete Time: 11: pm01/22 10:35 Order name: Magnesium; Complete Time: 11: pm01/22 10:35 Order name: NT PRO-BNP; Complete Time: 11: pm01/22 10:35 Order name: PT-INR; Complete Time: 11:11 pm01/22 10:17 Order name: EKG; Complete Time: 10:17 ss 01/22 10:17 Order name: EKG - Nurse/Tech; Complete Time: 10:29 ss 01/22 10:35 Order name: Troponin (emerg Dept Use Only); Complete Time: 11:23 pm1 01/22 10:35 Order name: XRAY Chest (1 view); Complete Time: 11:58 pm01/22 10:35 Order name: Cardiac monitoring; Complete Time: 11:23 pm01/22 10:35 Order name: IV Saline Lock; Complete Time: 11:23 pm01/22 10:35 Order name: TSH; Complete Time: 11:23 pm01/22 10:35 Order name: Labs collected and sent; Complete Time: 11:23 pm01/22 10:35 Order name: O2 Per Protocol; Complete Time: 11:23 pm01/22 10:35 Order name: O2 Sat Monitoring; Complete Time: 11:23 pm1 Administered Medications: 11:56 Drug: NS 0.9% 500 ml Route: IV; Rate: bolus; Site: left antecubital; sv Disposition: 16:26 Co-signature as Attending Physician, Luis Iniguez MD I agree with the assessment and kdr plan of care. Disposition: 01/22/19 12:18 Discharged to Home. Impression: Palpitations. - Condition is Stable. - Discharge Instructions: Hyperthyroidism, Palpitations. - Medication Reconciliation Form, Thank You Letter, Antibiotic Education, Prescription Opioid Use form. - Follow up: Emergency Department; When: As needed; Reason: Worsening of condition. Follow up: Private Physician; When: 2 - 3 days; Reason: Recheck today's complaints, Continuance of care, Re-evaluation by your physician. - Problem is new. - Symptoms have improved. Signatures: Dispatcher [employer] Jeannie Rivers, RN RN Luis Funk MD MD [email or web address] Maya Adhikari RN RN ss Stefan Grace, CLINICAL TRIAL ASSISTANT CLINICAL TRIAL ASSISTANT pm1 Kely Armstrong RN RN tw2 Corrections: (The following items were deleted from the chart) 12:48 12:18 01/22/2019 12:18 Discharged to Home. Impression: Palpitations. Condition is sv Stable. Forms are Medication Reconciliation Form, Thank You Letter, Antibiotic Education, Prescription Opioid Use. Follow up: Emergency Department; When: As needed; Reason: Worsening of condition. Follow up: Private Physician; When: 2 - 3 days; Reason: Recheck today's complaints, Continuance of care, Re-evaluation by your physician. Problem is new. Symptoms have improved. pm1
[2019-01-22 12:52] VITALS: TEMP 97.8
[2019-01-22 12:53] VITALS: BP 116/55; O2SAT 96
--- NOTE | 2019-01-22 17:48 | EKG ---
Test Date: 2019-01-22 Test Time: 10:19:36 [employer] Associate: SLICK MEASUREMENT RESULTS: Intervals: Rate: 63 [place]: QRSD: 150 QT: 420 QTc: 429 [place]: P: NH: QRS: 59 T: 108 INTERPRETIVE STATEMENTS: Uncertain supraventricular rhythm, most likely sinus bradycardia Right bundle branch block Abnormal ECG Compared to ECG 09/23/2018 18:19:24 Uncertain supraventricular rhythm now present First degree AV block no longer present Ventricular premature complex(es) no longer present Electronically Signed On 01-22-19 17:48:10 CDT by Jake Clark
== END 2019-01-22 12:48 | disposition home or self-care (01) ==
LOC: ER 10:07
DX: R00.2 Palpitations (principal); E11.9 Type 2 diabetes mellitus without complications; I10 Essential (primary) hypertension; E03.9 Hypothyroidism, unspecified; I48.91 Unspecified atrial fibrillation; Z79.01 Long term (current) use of anticoagulants; Z79.4 Long term (current) use of insulin; Z95.1 Presence of aortocoronary bypass graft; Z88.8 Allergy status to other drugs, medicaments and biological substances
CPT/HCPCS: 36415; 71045; 80048; 80076; 83735; 83880; 84443; 84484; 85025; 85610; 93005; 99284

== ENCOUNTER 2019-05-10 11:06 | Emergency (ER) | payer OTHER ==
--- OUTSIDE RECORDS SUMMARY | 2019-05-10 11:11 | XMS REPORT | Continuity of Care Document ---
:1940 Author Organization Right [employer] Care Team Providers Name Role Phone Right [employer] Unavailable Unavailable Problems Problem Status Onset Classification Date Comments Source Date Reported CHEST PAIN Active 02/23/20 MH 18 [facility] PNEUMONIA, CHEST Active 02/23/20 MH PAIN 18 [facility] SURGICAL SITE Active 02/14/20 INFECTION, JOSIAH 18 [facility] Wound Resolved 11/29/19 Problem 02/27/2018 debridement; 12 [facility] sternal wound AVR - Aortic Resolved 10/13/20 Problem 02/27/2018 valve replacement 11 [facility] Abnormal Resolved Problem 02/27/2018 metabolic state [facility] in diabetes mellitus AF - Atrial Active Problem 02/27/2018 fibrillation [facility] CKD , 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/27/2018 III(Confirmed) [facility] Osteoarthritis, Active Problem 02/27/2018 shoulder [facility] Diabetes mellitus Active Problem 02/27/2018 [facility] 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 [facility] S/P AVR Active Problem 02/27/2018 MH (Confirmed) [facility] Hypertension Active Problem 02/27/2018 [facility] Hypothyroidism Active Problem 02/27/2018 [facility] Maze procedure Active Problem 02/27/2018 [facility] Paroxysmal a-fib Resolved Problem 02/27/2018 [facility] Unspecified 02/22/2018 complication of [facility] procedure, initial encounter UNSPECIFIED Active COMPLICATION OF [facility] PROCEDURE, I ACUTE KIDNEY Active MH FAILURE, [facility] UNSPECIFIED PNEUMONIA, Active MH UNSPECIFIED [facility] ORGANISM Medications Medication Details Route Status Patient Ordering Order Source Instructions Provider Date Morphine 2 mg, 0.5 mL, Inactive Route: IVP, 2017 [facility] Drug form: SOLN, ONCE, Dosing Weight 86.364, kg, Priority: NOW, Start date: 02/24/18 10:49:00 CDT, Stop date: 02/24/18 10:49:00 CDTNotes: (Same as:MORPhine Sulfate) Acetaminophen 300 1 tab, Route: No Longer MG / Codeine PO, Drug Form: Active 2017 [facility] Phosphate 30 MG TAB, Dosing Oral Tablet Weight 86.364, [Tylenol with kg, Q4H, PRN Codeine #3] Pain Score 1-3, Start date: 02/23/18 17:05:00 CDT, Duration: 30 day, Stop date: 03/25/18 17:04:00 CDTNotes: Do not exceed 4gm/day of acetaminophen. (Same as: Tylenol with Codeine # 3) Docusate 100 mg, 1 cap, No Longer Route: PO, Drug Active 2017 [facility] form: CAP, Daily, Dosing Weight 86.364, kg, Priority: NOW, Start date: 02/23/18 17:04:00 CDT, Duration: 30 day, Stop date: 03/25/18 9:00:00 CDTNotes: (Same as: Colace) (Do Not Crush) Miralax 17 gm, 1 pkt, No Longer Route: PO, Drug Active 2017 [facility] form: PWDR, Daily, Dosing Weight 86.364, kg, Priority: NOW, Start date: 02/23/18 17:04:00 CDT, Duration: 30 day, Stop date: 03/25/18 9:00:00 CDTNotes: Dissolve in 8 oz of water or juice. (Same as: Miralax) Morphine 4 mg, 1 mL, Inactive Route: IVP, 2017 [facility] Drug form: SOLN, Q6H, Dosing Weight 86.364, kg, PRN Pain Score 7-10, Priority: NOW, Start date: 02/23/18 9:13:00 CDT, Duration: 30 day, Stop date: 03/25/18 9:12:00 CDTNotes: (Same as:MORPhine Sulfate) Triiodothyronine 5 microgram, 1 No Longer tab, Route: PO, Active 2017 [facility] Drug form: TAB, Daily, Dosing Weight 93.182, kg, Start date: 02/23/18 9:00:00 CDT, Duration: 30 day, Stop date: 03/24/18 9:00:00 CDTNotes: (Same as: Cytomel) Thyroxine 50 microgram, 1 No Longer tab, Route: PO, Active 2017 [facility] Drug form: TAB, Daily, Dosing Weight 93.182, kg, Start date: 02/23/18 9:00:00 CDT, Duration: 30 day, Stop date: 03/24/18 9:00:00 CDTNotes: Take 1 hour before or 2 hours after meal; Enteral feeds may interefere with the absorption of this medication.(Eddie e as:Levothroid, Synthroid) 3 ML Insulin 56 unit, 0.56 No Longer Glargine 100 mL, Route: Active 2018 [facility] UNT/ML Prefilled SUB-Q, Drug Syringe [Lantus] form: ASHU CASTELLON, Dosing Weight 93.182, kg, Start date: 02/23/18 9:00:00 CDT, Duration: 30 day, Stop date: 03/24/18 9:00:00 CDTNotes: (Same as: Lantus) Do not hold insulin without contacting prescriber WASTE: F/P - Black; E - Vouchr Trash Bin "single patient use only" Sodium Chloride 1,000 mL, Rate: No Longer 0.9% IV 1,000 mL 100 ml/hr, Active 2017 [facility] Infuse over: 10 hr, Route: IV, Dosing Weight 93.182 kg, Total Volume: 1,000, Start date: 02/22/18 16:59:00 CDT, Duration: 30 day, Stop date: 03/24/18 16:58:00 CDT, 2.1, m2 Saline Flush 0.9% 10 ml, Route: No Longer IVP, Drug Form: Active 2017 [facility] INJ, Dosing Weight 93.182, kg, PRN, PRN Line Flush, Start date: 02/22/18 16:59:00 CDT, Duration: 30 day, Stop date: 03/24/18 16:58:00 CDTNotes: (Same as: BD Posiflush) Insulin Lispro 2 unit, 0.02 No Longer mL, Route: Active 2017 [facility] SUB-Q, Drug form: RAVINDER, Bedtime, Dosing Weight 93.182, kg, PRN Blood [...] No Longer IM, Drug form: Active 2018 [facility] PDR/INJ, PRN, Dosing Weight 93.182, kg, PRN Blood Glucose Results, Start date: 02/22/18 14:35:00 CDT, Duration: 30 day, Stop date: 03/24/18 14:34:00 CDT Dextrose 50% 25 gm, 50 mL, No Longer Syringe Route: IVP, Active 2017 [facility] Drug Form: INJ, Dosing Weight 93.182, kg, PRN, PRN Blood Glucose Results, Start date: 02/22/18 14:35:00 CDT, Duration: 30 day, Stop date: 03/24/18 14:34:00 CDT Losartan 100 mg, 2 tab, No Longer Route: PO, Drug Active 2017 [facility] form: TAB, Daily, Dosing Weight 93.182, kg, Priority: NOW, Start date: 02/22/18 14:33:00 CDT, Duration: 30 day, Stop date: 03/24/18 9:00:00 CDTNotes: (Same as: Sarita) Morphine 2 mg, Route: Inactive IVP, ONCE, 2017 [facility] Dosing Weight 93.182, kg, Start date: 02/22/18 14:12:00 CDT, Stop date: 02/22/18 14:12:00 CDT Lidocaine 0.05 1 patch, Route: No Longer MG/MG Transdermal TOP, Daily, Active 2017 [facility] Patch Drug form: FILM, Start date: 02/22/18 14:00:00 CDT, Duration: 30 day, Stop date: 03/24/18 9:00:00 CDTNotes: Apply only once for up to 12 hours in a 24-hour period (12 hours on and 12 hours off). (Same as: Lidoderm) "Remove old patch before application of new patch" Acetaminophen 325 1 tab, Route: No Longer MG / Hydrocodone PO, Drug Form: Active 2018 [facility] Bitartrate 10 MG TAB, Dosing Oral Tablet Weight 93.182, [[place] 10/325] kg, Q4H, PRN Pain Score 1-3, Start date: 02/22/18 13:01:00 CDT, Duration: 30 day, Stop date: 03/24/18 13:00:00 CDTNotes: Do not exceed 4gm/day of acetaminophen. (Same as: [place] 325/10) gabapentin 300 mg, 1 cap, No Longer Route: PO, Drug Active 2017 [facility] form: CAP, Q8H, Dosing Weight 93.182, kg, Priority: NOW, Start date: 02/22/18 13:00:00 CDT, Duration: 30 day, Stop date: 03/24/18 8:00:00 CDTNotes: (Same as: Neurontin) cefepime 1 gm, Route: Inactive IVPB, ONCE, 2017 [facility] Dosing Weight 93.182, kg, Priority: STAT, Start date: 02/22/18 8:33:00 CDT, Stop date: 02/22/18 8:33:00 CDT, ABX Indication: Pneumonia Vancomycin 1,750 mg, Inactive Route: IVPB, 2017 [facility] ONCE, Dosing Weight 93.182, kg, Priority: [...] 1 tab, Inactive Route: PO, Drug 2017 [facility] form: TABDIS, ONCE, Dosing Weight 93.182, kg, Priority: STAT, Start date: 02/22/18 7:30:00 CDT, Stop date: 02/22/18 7:30:00 CDTNotes: (Same as: Zofran ODT) Morphine 4 mg, 1 mL, Inactive Route: IVP, 2017 [facility] Drug form: SOLN, ONCE, Dosing Weight 93.182, kg, Priority: STAT, Start date: 02/22/18 7:30:00 CDT, Stop date: 02/22/18 7:30:00 CDTNotes: (Same as:MORPhine Sulfate) Morphine 1 mg, 0.25 mL, Inactive Route: IVP2017 [facility] Drug form: SOLN, Q4H, Dosing Weight 90.028, kg, PRN Pain Score 6-10, Start date: 02/19/18 14:07:00 CDT, Duration: 30 day, Stop date: 03/21/18 14:06:00 CDTNotes: (Same as:MORPhine Sulfate) Sodium Chloride 1,000 mL, Rate: Inactive 0.9% IV 1,000 mL 75 ml/hr, 2017 [facility] Infuse over: 13.3 hr, Route: IV, Dosing Weight 90.028 kg, Total Volume: 1,000, Start date: 02/19/18 11:18:00 CDT, Duration: 30 day, Stop date: 03/21/18 11:17:00 CDT, 2.06, m2 Kayexalate 15 gm, 60 mL, Inactive Route: PO, Drug 2017 [facility] form: SUSP, ONCE, Dosing Weight 90.028, kg, Start date: 02/19/18 11:04:00 CDT, Stop date: 02/19/18 11:04:00 CDTNotes: (sodium polystyrene sulfonate 15 gm/60 ml LICO) Shake well before use. (Same as: Kayexalate, SPS) Morphine 1 mg, 0.25 mL, Inactive Route: IVP2017 [facility] Drug form: SOLN, Q2H, Dosing Weight 90.028, kg, PRN Pain Score 6-10, Start date: 02/19/18 10:56:00 CDT, Duration: 30 day, Stop date: 03/21/18 10:55:00 CDTNotes: (Same as:MORPhine Sulfate) Aspirin 81 mg, 1 tab, Inactive Route: PO, Drug 2017 [facility] form: ECTAB, Daily, Dosing Weight 90.028, kg, Start date: 02/19/18 9:00:00 CDT, Duration: 30 day, Stop date: 03/20/18 9:00:00 CDTNotes: Do not crush or chew. (Same As: Ecotrin) cefuroxime + 1.5 gm, Route: Inactive sterile water 20 IVP, ABXQ8H, 2017 [facility] mL Start date: 02/18/18 22:00:00 CDT, Duration: 1 doses or times, Stop date: 02/18/18 22:00:00 CDTNotes: (Same As: Kefurox, Zinacef) MEDICATION WASTE Product Size: 1500 mg Product Wasted: __0_ mg Famotidine 20 mg, 1 tab, No Longer Route: PO, Drug Active 2017 [facility] form: TAB, Q12H, Dosing Weight 90.028, kg, Start date: 02/18/18 21:00:00 CDT, Duration: 30 day, Stop date: 03/20/18 9:00:00 CDTNotes: (Same as: Pepcid) ceFAZolin + 2 gm, Route: Inactive sterile water 20 IV, ABXQ8H, 2017 [facility] Start date: 02/18/18 20:00:00 CDT, Duration: 1 doses or times, Stop date: 02/18/18 20:00:00 CDT, ABX Indication: Surgical ProphylaxisNote s: (Same As: Ancef, Kefzol) MEDICATION WASTE Product Size: 1000 mg Product Wasted: ___ mg Docusate Sodium 100 mg, 1 cap, No Longer 100 MG Oral Route: PO, Drug Active 2017 [facility] Capsule form: CAP, BID, Dosing Weight 90.028, kg, Start date: 02/18/18 17:00:00 CDT, Duration: 30 day, Stop date: 03/20/18 9:00:00 CDTNotes: (Same as: Colace) (Do Not Crush) Cefazolin 1 gm, Route: Inactive IVPB, Drug 2017 [facility] form: INJ, Q8H, Dosing Weight 90.028, kg, Start date: 02/18/18 16:00:00 CDT, Duration: 1 doses or times, Stop date: 02/18/18 16:00:00 CDT, ABX Indication: Surgical Prophylaxis albuterol 1.25 mg, 3 mL, No Longer Route: NEB, Active 2017 [facility] Drug form: SOLN, Q8H, PRN Respiratory Protocol, Start date: 02/18/18 15:46:00 CDT, Duration: 30 day, Stop date: 03/20/18 15:45:00 CDTNotes: SEE RT DOCUMENTATION (Same as: Proventil) Saline Flush 0.9% 10 ml, Route: No Longer IVP, Drug Form: Active 2017 [facility] INJ, Dosing Weight 90.028, kg, PRN, PRN Line Flush, Start date: 02/18/18 15:17:00 CDT, Duration: 30 day, Stop date: 03/20/18 15:16:00 CDTNotes: (Same as: BD Posiflush) D5W 1/2NS + KCL 1,000 mL, Rate: No Longer 20mEq/L 1000ml 80 ml/hr, Active 2017 [facility] (Premix) 1,000 mL Infuse over: 12.5 hr, Route: IV, Dosing Weight 90.028 kg, Total Volume: 1,000, Start date: 02/18/18 15:17:00 CDT, Duration: 30 day, Stop date: 03/20/18 15:16:00 CDT, 2.06, d7Tbdes: PREMIX IV - Do Not Alter WASTE: F/P - Sink; E - Municipal Trash Bin Demerol HCl 12.5 mg, 0.25 No Longer mL, Route: IM, Active 2017 [facility] Drug form: INJ, Q6H, Dosing Weight 90.028, kg, PRN Other -See Comment, Start date: 02/18/18 15:17:00 CDT, Duration: 4 day, Stop date: 02/22/18 15:16:00 CDTNotes: (Same As: Demerol) Xopenex 0.63 mg, Route: Inactive NEB, Q8H, 2017 [facility] Dosing Weight 90.028, kg, PRN Respiratory Protocol, Start date: 02/18/18 15:17:00 CDT, Duration: 30 day, Stop date: 03/20/18 15:16:00 CDT Dulcolax Laxative 5 mg, 1 tab, No Longer Route: PO, Drug Active 2017 [facility] form: ECTAB, Q24H, Dosing Weight 90.028, kg, PRN Constipation, Start date: 02/18/18 15:17:00 CDT, Duration: 30 day, Stop date: 03/20/18 15:16:00 CDTNotes: (Same As: Dulcolax, Correctol) (Do Not Crush) "Do Not Crush" Ondansetron 4 mg, 2 mL, No Longer Route: IVP, Active 2017 [facility] Drug form: INJ, Q6H, Dosing Weight 90.028, kg, PRN Nausea & Vomiting, Start date: 02/18/18 15:17:00 CDT, Duration: 30 day, Stop date: 03/20/18 15:16:00 CDTNotes: (Same as: Zofran) MEDICATION WASTE Product Size: 4 mg Product Wasted: ___ mg Al hydroxide/Mg 30 ml, Route: No Longer hydroxide/simethi PO, Drug Form: Active 2017 [facility] cone 200 mg-200 SUSP, Dosing mg-20 mg/5 mL Weight 90.028, oral suspension kg, Q4H, PRN Indigestion, Start date: 02/18/18 15:17:00 CDT, Duration: 30 day, Stop date: 03/20/18 15:16:00 CDTNotes: (aluminum hydroxide-magne sium hyd-simethicone [phone]/5m l 30 ml ud LICO) Acetaminophen 325 1 tab, Route: No Longer MG / Hydrocodone PO, Drug Form: Active 2018 [facility] Bitartrate 5 MG TAB, Dosing Oral Tablet Weight 90.028, kg, Q4H, PRN Pain Score 4-6, Start date: 02/18/18 15:17:00 CDT, Duration: 30 day, Stop date: 03/20/18 15:16:00 CDTNotes: (Same as: [place] 325/5) Do not exceed 4gm/day of acetaminophen. Acetaminophen 650 mg, 2 tab, Inactive Route: PO, Drug 2017 [facility] form: TAB, Q4H, Dosing Weight 90.028, kg, PRN Pain 1-3/Temp > 100.4 F, Start date: 02/18/18 15:17:00 CDT, Duration: 30 day, Stop date: 03/20/18 15:16:00 CDTNotes: Do not exceed 4 gm/day. (Same as: Tylenol) acetaminophen-cod 2 tab, Route: Inactive eine #3 PO, Drug Form: 2017 TAB, Dosing Weight 90.028, kg, Q4H, PRN Pain Score 4-6, Start date: 02/18/18 15:17:00 CDT, Duration: 30 day, Stop date: 03/20/18 15:16:00 CDTNotes: Do not exceed 4gm/day of acetaminophen. (Same as: Tylenol with Codeine # 3) ePHEDrine (ANES) Route: IV, Drug Inactive MH form: [id number] [facility] , Stop date: 02/18/18 15:11:00 CDT glycopyrrolate Route: IV, Drug Inactive MH (ANES) form: [id number], Stop date: 02/18/18 15:11:00 CDT dexamethasone Route: IV, Drug Inactive MH (ANES) form: [id number], Stop date: 02/18/18 15:11:00 CDT neostigmine Route: IV, Drug Inactive MH (ANES) form: 2017, Stop date: 02/18/18 15:11:00 CDT flumazenil (ANES) Route: IV, Drug Inactive MH form: [id number], Stop date: 02/18/18 15:11:00 CDT phenylephrine Route: IV, Drug Inactive 02/18/ MH (ANES) form: 2017, Stop date: 02/18/18 15:08:00 CDT cefuroxime (ANES) Route: IV, Drug Inactive 02/18/ MH form: 2017, Stop date: 02/18/18 15:03:00 CDT propofol (ANES) Route: IV, Drug Inactive MH form: [id number], Stop date: 02/18/18 14:53:00 CDT fentaNYL (ANES) Route: IV, Drug Inactive form: INJ, 2017 [facility] ONCE, Stop date: 02/18/18 14:48:00 CDT lidocaine (ANES) Route: IV, Drug Inactive form: INJ, 2017 [facility] ONCE, Stop date: 02/18/18 14:48:00 CDT midazolam (ANES) Route: IV, Drug Inactive form: SOLN, 2017 [facility] ONCE, Stop date: 02/18/18 14:48:00 CDT Fentanyl 50 microgram, 1 Inactive mL, Route: IV, 2017 [facility] Drug form: INJ, Q10Min, Dosing Weight 90.028, kg, PRN Pain Score 4-6, Start date: 02/18/18 14:42:00 CDT, Duration: 3 doses or times, Stop date: Limited # of timesNotes: (Same as: Sublimaze) Preservative free. Naloxone 0.4 mg, 1 mL, Inactive Route: IVP2017 [facility] Drug form: INJ, PRN, Dosing Weight 90.028, kg, PRN Narcotic Reversal, Start date: 02/18/18 14:42:00 CDT, Duration: 30 day, Stop date: 03/20/18 14:41:00 CDTNotes: Same as Narcan Flumazenil 0.2 mg, 2 mL, Inactive Route: IVP2017 [facility] Drug form: INJ, PRN, Dosing Weight 90.028, kg, PRN Benzodiazepine Reversal, Initial dose, Start date: 02/18/18 14:42:00 CDT, Duration: 30 day, Stop date: 03/20/18 14:41:00 CDTNotes: (Same as: Romazicon) Hydromorphone 0.5 mg, 0.25 Inactive mL, Route: IVP2017 [facility] Drug form: INJ, Q5Min, Dosing Weight 90.028, kg, PRN Pain Score 7-10, Start date: 02/18/18 14:42:00 CDT, Duration: 4 doses or times, Stop date: Limited # of timesNotes: Same as Dilaudid Morphine 2 mg, 0.5 mL, Inactive Route: IVP2017 [facility] Drug form: SOLN, Q5Min, Dosing Weight 90.028, kg, PRN Pain Score 4-6, Start date: 02/18/18 14:42:00 CDT, Duration: 5 doses or times, Stop date: Limited # of timesNotes: (Same as:MORPhine Sulfate) Acetaminophen 1,000 mg, 100 Inactive mL, Route: IV, 2017 [facility] Drug form: INJ, ONCE, Dosing Weight 90.028, kg, PRN Pain Score 1-3, Start date: 02/18/18 14:42:00 CDTNotes: Infuse over 15 minutes Do not exceed 4gm/day of acetaminophen MEDICATION WASTE Product Size: 1000 mg Product Wasted: ___ mg Ondansetron 4 mg, 2 mL, Inactive Route: IVP2017 [facility] Drug form: INJ, ONCE, Dosing Weight 90.028, kg, PRN Nausea & Vomiting, Start date: 02/18/18 14:42:00 CDTNotes: (Same as: Zofran) MEDICATION WASTE Product Size: 4 mg Product Wasted: ___ mg Promethazine 6.25 mg, 0.25 Inactive mL, Route: IM, 2017 [facility] Drug form: INJ, ONCE, Dosing Weight 90.028, kg, PRN Nausea & Vomiting, Start date: 02/18/18 14:42:00 CDTNotes: Do not give IV push. (Same as: Phenergan) Dexamethasone 4 mg, 1 mL, Inactive Route: IVP2017 [facility] Drug form: INJ, ONCE, Dosing Weight 90.028, kg, PRN Nausea & Vomiting, Start date: 02/18/18 14:42:00 CDTNotes: Concentration: 4mg/ml Meperidine 12.5 mg, 0.25 Inactive mL, Route: IVP2017 [facility] Drug form: INJ, Q30Min, Dosing Weight 90.028, kg, PRN Other -See Comment, For shivering, Start date: 02/18/18 14:42:00 CDT, Duration: 2 doses or times, Stop date: Limited # of timesNotes: (Same As: Demerol) Diphenhydramine 12.5 mg, 0.25 Inactive mL, Route: IVP, 2017 [facility] Drug form: INJ, Q6H, Dosing Weight 90.028, kg, PRN Itching, Start date: 02/18/18 14:42:00 CDT, Duration: 30 day, Stop date: 03/20/18 14:41:00 CDTNotes: (Same as: Benadryl) Albuterol 0.83 2.49 mg, 3 mL, Inactive MG/ML Inhalant Route: NEB, 2017 [facility] Solution Drug form: SOLN, Q20Min, Dosing Weight 90.028, kg, PRN Wheezing, Priority: STAT, Start date: 02/18/18 14:42:00 CDT, Duration: 30 day, Stop date: 03/20/18 14:41:00 CDTNotes: SEE RT DOCUMENTATION (Same as: Proventil) Hydralazine 10 mg, 0.5 mL, Inactive Route: IVP2017 [facility] Drug form: INJ, Q20Min, Dosing Weight 90.028, kg, PRN Elevated BP, Start date: 02/18/18 14:42:00 CDT, Duration: 2 doses or times, Stop date: Limited # of timesNotes: (Same as: Apresoline) Push over 5 minutes vancomycin (ANES) Route: IV, Drug Inactive 1.5 gm form: INJ, 2017 [facility] Start date: 02/18/18 14:18:00 CDT, Stop date: 02/18/18 15:18:00 CDT Isolyte S PH 7.4 Route: IV, Inactive (ANES) 1000 mL Total Volume: 2017 [facility] 1,000, Start date: 02/18/18 14:16:00 CDT, Stop date: 02/18/18 15:16:00 CDT Lidocaine 0.5 mL, Route: No Longer Hydrochloride 10 INTRADERM, Drug Active 2017 [facility] MG/ML Injectable Form: INJ, Solution Dosing Weight 90.028, kg, ONCALL, Start date: 02/18/18 14:00:00 CDT, Duration: 1 doses or timesNotes: Preservative free. (Same as: Xylocaine MPF) Ancef + sterile 1 gm, Route: Inactive water 10 mL IVP, ONCE, 2017 [facility] Dosing Weight 90.028, kg, Start date: 02/18/18 2:39:00 CDT, Stop date: 02/18/18 2:39:00 CDT, ABX Indication: Surgical ProphylaxisNote s: (Same As: Ancef, Kefzol) MEDICATION WASTE Product Size: 1000 mg Product Wasted: ___ mg Naproxen 250 mg, 1 tab, No Longer Route: PO, Drug Active 2017 [facility] form: TAB, BID, Dosing Weight 90.028, kg, PRN Pain Score 1-3, Start date: 02/17/18 18:41:00 CDT, Duration: 30 day, Stop date: 03/19/18 18:40:00 CDTNotes: (Same as: Naprosyn) Take with food. Humalog 5 unit, 0.05 No Longer mL, Route: Active 2017 [facility] SUB-Q, Drug form: SOLN, TID-Before Meals, [...] 5 unit, 0.05 Inactive mL, Route: 2017 [facility] SUB-Q, Drug form: SOLN, TID-Before Meals, [...] No Longer Route: PO, Drug Active 2017 [facility] form: TAB, Q6H, Dosing Weight 90.028, kg, PRN Pain Score 1-5, Start date: 02/16/18 18:00:00 CDT, Duration: 30 day, Stop date: 03/18/18 12:00:00 CDTNotes: Do not exceed 4 gm/day. (Same as: Tylenol) Ibuprofen 400 mg, 1 tab, No Longer Route: PO, Drug Active 2017 [facility] form: TAB, Q4H, Dosing Weight 90.028, kg, PRN Pain Score 4-6, Start date: 02/16/18 16:57:00 CDT, Duration: 30 day, Stop date: 03/18/18 16:56:00 CDT, Pain Score 3-5Notes: (Same as: Motrin) "Do Not Crush" Give with food. Morphine 1 mg, 0.25 mL, No Longer Route: IVP, Active 2017 [facility] Drug form: SOLN, Q6H, Dosing Weight 88.636, kg, PRN Pain Score 7-10, Start date: 02/15/18 9:16:00 CDT, Duration: 30 day, Stop date: 03/17/18 9:15:00 CDTNotes: (Same as:MORPhine Sulfate) Naproxen 250 mg, 1 tab, No Longer Route: PO, Drug Active 2017 [facility] form: TAB, BID, Dosing Weight 90.028, kg, Start date: 02/15/18 9:15:00 CDT, Duration: 30 day, Stop date: 03/17/18 9:00:00 CDTNotes: (Same as: Naprosyn) Take with food. Tylenol 325 mg, 1 tab, No Longer Route: PO, Drug Active 2017 [facility] form: TAB, Q4H, Dosing Weight 90.028, kg, PRN Pain Score 1-5, Start date: 02/15/18 9:13:00 CDT, Duration: 30 day, Stop date: 03/17/18 9:12:00 CDTNotes: Do not exceed 4 gm/day. (Same as: Tylenol) Acetaminophen 325 1 tab, Route: Inactive MG / Hydrocodone PO, Drug Form: 2017 [facility] Bitartrate 5 MG TAB, Dosing Oral Tablet Weight 90.028, [[place] 5/325] kg, Q4H, PRN Pain Score 1-5, Start date: 02/14/18 11:11:00 CDT, Duration: 30 day, Stop date: 03/16/18 11:10:00 CDTNotes: (Same as: [place] 325/5) Do not exceed 4gm/day of acetaminophen. Zofran ODT 4 mg, 1 tab, No Longer Route: PO, Drug Active 2017 [facility] form: TABDIS, Q8H, Dosing Weight 90.028, kg, PRN Nausea, Start date: 02/14/18 11:08:00 CDT, Duration: 30 day, Stop date: 03/16/18 11:07:00 CDTNotes: (Same as: Zofran ODT) Docusate Sodium 100 mg, 1 cap, No Longer 100 MG Oral Route: PO, Drug Active 2017 [facility] Capsule [Colace] form: CAP, BID, Dosing Weight 90.028, kg, PRN Constipation, Start date: 02/14/18 11:08:00 CDT, Duration: 30 day, Stop date: 03/16/18 11:07:00 CDTNotes: (Same as: Colace) (Do Not Crush) Losartan 50 mg, 1 tab, No Longer Route: PO, Drug Active 2017 [facility] form: TAB, Daily, Dosing Weight 88.636, kg, Start date: 02/14/18 9:00:00 CDT, Duration: 30 day, Stop date: 03/15/18 9:00:00 CDTNotes: (Same as: Cozaar) 3 ML Insulin 56 unit, 0.56 No Longer Glargine 100 mL, Route: Active 2017 [facility] UNT/ML Prefilled SUB-Q, Drug Syringe [Lantus] form: SOLN, QAM, Dosing Weight 88.636, kg, Start date: 02/14/18 9:00:00 CDT, Duration: 30 day, Stop date: 03/15/18 9:00:00 CDTNotes: (Same as: Lantus) Do not hold insulin without contacting prescriber WASTE: F/P - Black; E - Municipal Trash Bin "single patient use only" Triiodothyronine 5 microgram, 1 No Longer tab, Route: PO, Active 2017 [facility] Drug form: TAB, Daily, Dosing Weight 88.636, kg, Start date: 02/14/18 9:00:00 CDT, Duration: 30 day, Stop date: 03/15/18 9:00:00 CDTNotes: (Same as: Cytomel) Thyroxine 50 microgram, 1 No Longer tab, Route: PO, Active 2017 [facility] Drug form: TAB, Daily, Dosing Weight 88.636, kg, Start date: 02/14/18 9:00:00 CDT, Duration: 30 day, Stop date: 03/15/18 9:00:00 CDTNotes: Take 1 hour before or 2 hours after meal; Enteral feeds may interefere with the absorption of this medication.(Eddie e as:Levothroid, Synthroid) Trazodone 25 mg, 0.5 tab, No Longer Route: PO, Drug Active 2017 [facility] form: TAB, Bedtime, Dosing Weight 88.636, kg, Start date: 02/13/18 21:00:00 CDT, Duration: 7 day, Stop date: 02/19/18 21:00:00 CDTNotes: (Same As: Desyrel) Ketorolac 7.5 mg, 0.5 mL, No Longer Route: IVP, Active 2017 [facility] Drug form: INJ, Q6H, Dosing Weight [...] 0.5 tab, Inactive Route: PO, Drug 2017 [facility] form: TAB, QID, Start date: 02/13/18 17:00:00 CDT, Duration: 4 day, Stop date: 02/17/18 13:00:00 CDTNotes: Not for use > 4 days. Give with food. (Same as:Toradol) Ketorolac 7.5 mg, 0.5 mL, Inactive Route: IVP, 2017 [facility] Drug form: INJ, ONCE, Dosing Weight 88.636, kg, Start date: 02/13/18 16:17:00 CDT, Stop date: 02/13/18 16:17:00 CDTNotes: (Same as:Toradol) IV bolus must be given >15 seconds. Give IM administration slowly and deeply into the muscle. Not for use > 4 days. Hydralazine 10 mg, 0.5 mL, No Longer Route: IVP, Active 2017 [facility] Drug form: INJ, Q6H, Dosing Weight [...] oral tablet PO, Daily, # 30 2017 [facility] tab, 0 Refill(s) 3 ML Insulin 56 unit, SUB-Q, On Hold Glargine 100 QAM 2017 [facility] UNT/ML Prefilled Syringe [Lantus] levothyroxine 50 50 microgram=1 On Hold mcg (0.05 mg) tab, PO, Daily, 2017 [facility] oral tablet # 30 tab, 0 Refill(s) liothyronine 5 5 microgram=1 On Hold mcg oral tablet tab, PO, Daily, 2017 [facility] # 30 tab, 0 Refill(s) gabapentin 100 MG 100 mg=1 cap, On Hold Oral Capsule PO, TID 2017 [facility] Dialyvite 3000 1 tab, PO, On Hold oral tablet Daily, 0 2017 [facility] Refill(s) Fenofibrate 48 MG =1 cap, PO, On Hold Oral Tablet Daily 2017 [facility] Hydralazine 50 mg=1 tab, No Longer Hydrochloride 50 PO, BID, 0 Active 2017 [facility] MG Oral Tablet Refill(s) Glucagon 1 mg, Route: No Longer IM, Drug form: Active 2018 [facility] PDR/INJ, PRN, Dosing Weight 88.636, kg, PRN Blood Glucose Results, Start date: 02/13/18 14:31:00 CDT, Duration: 30 day, Stop date: 03/15/18 14:30:00 CDT Dextrose 50% 25 gm, 50 mL, No Longer Syringe Route: IVP, Active 2017 [facility] Drug Form: INJ, Dosing Weight 88.636, kg, PRN, PRN Blood Glucose Results, Start date: 02/13/18 14:31:00 CDT, Duration: 30 day, Stop date: 03/15/18 14:30:00 CDT Insulin Lispro 2 unit, 0.02 No Longer mL, Route: Active 2018 [facility] SUB-Q, Drug form: SOLN, TID-Before Meals, [...] mL, No Longer Route: IVP, Active 2017 [facility] Drug form: INJ, Q6H, Dosing Weight 88.636, kg, PRN Nausea & Vomiting, Start date: 02/13/18 14:29:00 CDT, Duration: 30 day, Stop date: 03/15/18 14:28:00 CDTNotes: (Same as: Zofran) MEDICATION WASTE Product Size: 4 mg Product Wasted: ___ mg Morphine 1 mg, 0.25 mL, No Longer Route: IVP, Active 2017 [facility] Drug form: SOLN, Q4H, Dosing Weight 88.636, kg, PRN Pain Score 7-10, Start date: 02/13/18 14:29:00 CDT, Stop date: 03/15/18 14:28:00 CDTNotes: (Same as:MORPhine Sulfate) normal saline 1,000 mL, Rate: No Longer 0.9% IV 1,000 mL 75 ml/hr, Active 2017 [facility] Infuse over: 13.3 hr, Route: IV, Dosing Weight 88.636 kg, Total Volume: 1,000, Start date: 02/13/18 14:26:00 CDT, Duration: 30 day, Stop date: 03/15/18 14:25:00 CDT, 2.03, m2 Trazodone 25 mg, 0.5 tab, Inactive Route: PO, Drug 2017 [facility] form: TAB, Bedtime, Dosing Weight 88.636, kg, PRN Insomnia, Start date: 02/13/18 14:26:00 CDT, Duration: 7 day, Stop date: 02/20/18 14:25:00 CDTNotes: (Same As: Desyrel) Zofran ODT 4 mg, 1 tab, Inactive Route: PO, Drug 2017 [facility] form: TABDIS, ONCE, Dosing Weight 88.636, kg, Priority: STAT, Start date: 02/13/18 12:51:00 CDT, Stop date: 02/13/18 12:51:00 CDTNotes: (Same as: Zofran ODT) Morphine 2 mg, 0.5 mL, Inactive Route: IVP, 2017 [facility] Drug form: SOLN, ONCE, Dosing Weight 88.636, kg, Priority: STAT, Start date: 02/13/18 12:50:00 CDT, Stop date: 02/13/18 12:50:00 CDTNotes: (Same as:MORPhine Sulfate) Allergies, Adverse Reactions, Alerts Substance Category Reaction Severity Reaction Status Date Comments Source type Reported metoprolol Assertion Drug allergy Active [facility] Lopressor Assertion Drug allergy Active [facility] Betapace Assertion Drug allergy Active [facility] Toprol-XL Assertion Drug allergy Active [facility] metFORMIN Assertion vomiting Drug Active intolerance [facility] Immunizations No Data Provided for This Section Results Order Name Results Value Reference Date Interpretation Comments Source Range HEMATOLOGY Sed Rate 24 0 - 20 02/23 [facility] CHEM PANEL BUN 28 7 - 22 02/23 [facility] CHEM PANEL Glucose Lvl 195 70 - 99 02/23 [facility] CHEM PANEL eGFR 54 02/23 Result Comment: The [facility] eGFR is calculated using the CKD-EPI formula. In most young, healthy individuals the eGFR will be >90 mL/min/1.73m2 . The eGFR declines with age. An eGFR of 60-89 may be normal in some populations, particularly the elderly, for whom the CKD-EPI formula has not been extensively validated. Use of the eGFR is not recommended in the following populations:< br/>
[place] viduals with unstable creatinine concentration s, including patients and those with serious co-morbid conditions.<b r/>
Patie nts with extremes in muscle mass or diet.

The data above are obtained from the National Kidney Disease Education Program (NKDEP) which additionally recommends that when the eGFR is used in patients with extremes of body mass index for purposes of drug dosing, the eGFR should be multiplied by the estimated BMI. CHEM PANEL Chloride Lvl 109 95 - 109 02/23 [facility] CHEM PANEL Calcium Lvl 9.7 8.5 - 10.5 02/23 [facility] CHEM PANEL CO2 29 24 - 32 02/23 MH [facility] CHEM PANEL Potassium 4.6 3.5 - 5.1 02/23 MH Lvl /2017 [facility] CHEM PANEL Creatinine 1.00 0.50 - 02/23 Lvl 1.40 /2017 [facility] CHEM PANEL Sodium Lvl 144 135 - 145 02/23 [facility] CHEM PANEL AGAP 10.6 10.0 - 02/23 MH 20.0 /2017 [facility] CHEM PANEL Procalcitoni <0.05 0.00 - 02/22 n Lvl 0.10 [facility] HEMATOLOGY D-Dimer 1.02 02/22 [facility] HEMATOLOGY PT 14.6 12.0 - 05 MH 14.7 /2018 [facility] HEMATOLOGY INR 1.14 0.85 - 02/22 MH 1.17 [facility] HEMATOLOGY PTT 31.0 22.9 - 02/22 MH 35.8 /2017 [facility] CARDIAC Troponin-I <0.02 0.00 - 05 ENZYMES 0.40 [facility] CARDIAC Total CK 73 12 - 191 02/22 ENZYMES /2017 [facility] CHEM PANEL Lactic Acid 0.8 0.5 - 2.2 02/22 MH Lvl [facility] ELECTROLYT AGAP 12.9 10.0 - 02/22 ES 20.0 [facility] ELECTROLYT eGFR 48 02/22 Result Comment: The [facility] eGFR is calculated using the CKD-EPI formula. In most young, healthy individuals the eGFR will be >90 mL/min/1.73m2 . The eGFR declines with age. An eGFR of 60-89 may be normal in some populations, particularly the elderly, for whom the CKD-EPI formula has not been extensively validated. Use of the eGFR is not recommended in the following populations:< br/>
[place] viduals with unstable creatinine concentration s, including patients and those with serious co-morbid conditions.<b r/>
Patie nts with extremes in muscle mass or diet.

The data above are obtained from the National Kidney Disease Education Program (NKDEP) which additionally recommends that when the eGFR is used in patients with extremes of body mass index for purposes of drug dosing, the eGFR should be multiplied by the estimated BMI. ELECTROLYT Potassium 3.9 3.5 - 5.1 02/22 ES Lvl /2017 [facility] ELECTROLYT Sodium Lvl 139 135 - 145 02/22 ES [facility] ELECTROLYT Creatinine 1.10 0.50 - 02/22 ES Lvl 1.40 [facility] ELECTROLYT BUN 30 7 - 22 02/22 ES [facility] ELECTROLYT Glucose Lvl 160 70 - 99 02/22 ES [facility] ELECTROLYT Calcium Lvl 9.9 8.5 - 10.5 02/22 ES [facility] ELECTROLYT CO2 23 24 - 32 05 ES /2017 [facility] ELECTROLYT Chloride Lvl 107 95 - 109 02/22 ES /2017 [facility] HEMATOLOGY MPV 7.4 7.4 - 10.4 02/22 [facility] HEMATOLOGY Hct 36.3 36.0 - 02/22 48.0 /2017 [facility] HEMATOLOGY MCV 83.5 80.0 - 02/22 98.0 [facility] HEMATOLOGY Hgb 11.5 12.0 - 02/22 16.0 /2017 [facility] HEMATOLOGY RBC 4.34 4.20 - 02/22 5.40 [facility] HEMATOLOGY RDW 15.8 11.5 - 05 14.5 /2017 [facility] HEMATOLOGY Platelet 272 133 - 450 02/22 [facility] HEMATOLOGY MCH 26.5 27.0 - 02/22 31.0 [facility] HEMATOLOGY MCHC 31.7 32.0 - 02/22 36.0 [facility] HEMATOLOGY WBC 12.7 3.7 - 10.4 02/22 [facility] HEMATOLOGY Eosinophils 0.4 0.0 - 0.5 02/22 # /2017 [facility] HEMATOLOGY Monocytes # 1.3 0.0 - 0.8 02/22 [facility] HEMATOLOGY Basophils # 0.1 0.0 - 0.2 02/22 [facility] HEMATOLOGY Segs-Bands # 7.1 1.5 - 8.1 02/22 [facility] HEMATOLOGY Lymphocytes 3.9 1.0 - 5.5 02/22 # [facility] HEMATOLOGY Eosinophils 2.8 0.0 - 4.0 02/22 [facility] HEMATOLOGY Monocytes 9.9 2.0 - 12.0 02/22 [facility] HEMATOLOGY Basophils 0.4 0.0 - 1.0 02/22 [facility] HEMATOLOGY Segs 56.2 45.0 - 02/22 75.0 [facility] HEMATOLOGY Lymphocytes 30.7 20.0 - 05/ MH 40.0 [facility] CHEM PANEL eGFR 36 02/19 Comment: The [facility] eGFR is calculated using the CKD-EPI formula. In most young, healthy individuals the eGFR will be >90 mL/min/1.73m2 . The eGFR declines with age. An eGFR of 60-89 may be normal in some populations, particularly the elderly, for whom the CKD-EPI formula has not been extensively validated. Use of the eGFR is not recommended in the following populations:< br/>
[place] viduals with unstable creatinine concentration s, including patients and those with serious co-morbid conditions.<b r/>
Patie nts with extremes in muscle mass or diet.

The data above are obtained from the National Kidney Disease Education Program (NKDEP) which additionally recommends that when the eGFR is used in patients with extremes of body mass index for purposes of drug dosing, the eGFR should be multiplied by the estimated BMI. CHEM PANEL CO2 20 24 - 32 02/19 [facility] CHEM PANEL Calcium Lvl 9.3 8.5 - 10.5 02/19 [facility] CHEM PANEL Potassium 5.5 3.5 - 5.1 02/19 Lvl [facility] CHEM PANEL Chloride Lvl 105 95 - 109 02/19 [facility] CHEM PANEL AGAP 14.5 10.0 - 05 20.0 [facility] CHEM PANEL Sodium Lvl 134 135 - 145 02/19 [facility] CHEM PANEL Creatinine 1.40 0.50 - 02/19 Lvl 1.40 /2017 [facility] CHEM PANEL BUN 29 7 - 22 02/19 [facility] CHEM PANEL Glucose Lvl 325 70 - 99 02/19 [facility] HEMATOLOGY RBC Morph Normal 02/19 (02/19/18 6:40 AM) [facility] HEMATOLOGY Monocytes 5.3 2.0 - 12.0 02/19 [facility] HEMATOLOGY Basophils 0.3 0.0 - 1.0 02/19 [facility] HEMATOLOGY Lymphocytes 9.1 20.0 - 05 MH 40.0 [facility] HEMATOLOGY Segs 85.3 45.0 - 02/19 MH 75.0 [facility] HEMATOLOGY Plt Morph Normal 02/19 (02/19/18 6:40 AM) [facility] HEMATOLOGY Basophils # 0.1 0.0 - 0.2 02/19 [facility] HEMATOLOGY Segs-Bands # 13.4 1.5 - 8.1 02/19 [facility] HEMATOLOGY Monocytes # 0.8 0.0 - 0.8 02/19 [facility] HEMATOLOGY Lymphocytes 1.4 1.0 - 5.5 02/19 MH # /2018 [facility] HEMATOLOGY WBC 15.7 3.7 - 10.4 02/19 [facility] HEMATOLOGY Hct 34.1 36.0 - 02/19 MH 48.0 [facility] HEMATOLOGY Hgb 11.4 12.0 - 02/19 MH 16.0 [facility] HEMATOLOGY RBC 4.12 4.20 - 02/19 MH 5.40 /2017 [facility] HEMATOLOGY MCHC 33.4 32.0 - 02/19 36.0 [facility] HEMATOLOGY RDW 15.7 11.5 - 02/19 MH 14.5 [facility] MCH 27.6 27.0 - 02/19 MH 31.0 [facility] Platelet 204 133 - 450 02/19 [facility] HEMATOLOGY MCV 82.6 80.0 - 02/19 MH 98.0 [facility] MPV 7.6 7.4 - 10.4 02/19 /2017 [facility] BLOOD BANK ABO/Rh A NEG 02/18 RESULTS /2017 [facility] BLOOD BANK Antibody Negative 02/18 RESULTS Scrn (02/18/18 5:00 AM) [facility] CHEM PANEL eGFR 36 02/18 Result Comment: The [facility] eGFR is calculated using the CKD-EPI formula. In most young, healthy individuals the eGFR will be >90 mL/min/1.73m2 . The eGFR declines with age. An eGFR of 60-89 may be normal in some populations, particularly the elderly, for whom the CKD-EPI formula has not been extensively validated. Use of the eGFR is not recommended in the following populations:< br/>
[place] viduals with unstable creatinine concentration s, including patients and those with serious co-morbid conditions.<b r/>
Patie nts with extremes in muscle mass or diet.

The data above are obtained from the National Kidney Disease Education Program (NKDEP) which additionally recommends that when the eGFR is used in patients with extremes of body mass index for purposes of drug dosing, the eGFR should be multiplied by the estimated BMI. CHEM PANEL AGAP 9.3 10.0 - 05 MH 20.0 /2017 [facility] CHEM PANEL Calcium Lvl 9.7 8.5 - 10.5 02/18 [facility] CHEM PANEL Chloride Lvl 108 95 - 109 02/18 [facility] CHEM PANEL CO2 28 24 - 32 02/18 [facility] CHEM PANEL Potassium 4.3 3.5 - 5.1 /07 MH Lvl /2017 [facility] CHEM PANEL BUN 30 7 - 22 02/18 [facility] CHEM PANEL Glucose Lvl 121 70 - 99 02/18 [facility] CHEM PANEL Creatinine 1.40 0.50 - 05 MH Lvl 1.40 /2017 [facility] CHEM PANEL Sodium Lvl 141 135 - 145 02/18 [facility] HEMATOLOGY Eosinophils 0.4 0.0 - 0.5 / MH # /2017 [facility] HEMATOLOGY Basophils # 0.1 0.0 - 0.2 02/18 [facility] HEMATOLOGY Lymphocytes 24.1 20.0 - 05 MH 40.0 [facility] HEMATOLOGY Segs 64.4 45.0 - 05 MH 75.0 /2017 [facility] HEMATOLOGY Monocytes 7.4 2.0 - 12.0 02/18 [facility] HEMATOLOGY Lymphocytes 2.7 1.0 - 5.5 02/18 # [facility] HEMATOLOGY Monocytes # 0.8 0.0 - 0.8 02/18 [facility] HEMATOLOGY Eosinophils 3.5 0.0 - 4.0 02/18 [facility] HEMATOLOGY Segs-Bands # 7.1 1.5 - 8.1 02/18 [facility] HEMATOLOGY Basophils 0.6 0.0 - 1.0 02/18 [facility] HEMATOLOGY RBC 4.41 4.20 - 05/ MH 5.40 /2018 [facility] HEMATOLOGY WBC 11.0 3.7 - 10.4 02/18 [facility] HEMATOLOGY RDW 15.6 11.5 - 02/18 14.5 /2017 [facility] HEMATOLOGY Platelet 265 133 - 450 02/18 [facility] MCHC 32.1 32.0 - 05 MH 36.0 /2017 [facility] MPV 7.5 7.4 - 10.4 02/18 [facility] HEMATOLOGY Hgb 11.7 12.0 - 05 MH 16.0 /2017 [facility] HEMATOLOGY MCH 26.5 27.0 - 02/18 MH 31.0 /2017 [facility] HEMATOLOGY MCV 82.7 80.0 - 02/18 MH 98.0 /2018 [facility] HEMATOLOGY Hct 36.5 36.0 - 02/18 MH 48.0 /2017 [facility] BLOOD BANK RBC product Product available 1 02/18 Result RESULTS (02/17/18 11:57 PM) Comment: [facility] 02/18/2018 08:02 [id number]
Blood available, notified JC,N at 02/18/2018 08:02_ by _. CHEM PANEL eGFR 43 02/17 Result Comment: The [facility] eGFR is calculated using the CKD-EPI formula. In most young, healthy individuals the eGFR will be >90 mL/min/1.73m2 . The eGFR declines with age. An eGFR of 60-89 may be normal in some populations, particularly the elderly, for whom the CKD-EPI formula has not been extensively validated. Use of the eGFR is not recommended in the following populations:< br/>
[place] viduals with unstable creatinine concentration s, including patients and those with serious co-morbid conditions.<b r/>
Patie nts with extremes in muscle mass or diet.

The data above are obtained from the National Kidney Disease Education Program (NKDEP) which additionally recommends that when the eGFR is used in patients with extremes of body mass index for purposes of drug dosing, the eGFR should be multiplied by the estimated BMI. CHEM PANEL AST 20 0 - 37 02/17 [facility] CHEM PANEL B/C Ratio 21 6 - 25 02/17 [facility] CHEM PANEL AGAP 8.7 10.0 - 05/ MH 20.0 /2018 [facility] CHEM PANEL Bili Total 0.4 0.2 - 1.3 02/17 [facility] CHEM PANEL Alk Phos 49 39 - 136 / [facility] CHEM PANEL A/G Ratio 0.9 0.7 - 1.6 / [facility] CHEM PANEL Globulin 3.5 2.7 - 4.2 02/17 [facility] CHEM PANEL ALT 21 0 - 65 02/17 [facility] CHEM PANEL Albumin Lvl 3.2 3.5 - 5.0 05/ [facility] CHEM PANEL Total 6.7 6.4 - 8.4 05/ Protein /2017 [facility] CHEM PANEL Calcium Lvl 9.7 8.5 - 10.5 05/ /2017 [facility] CHEM PANEL Creatinine 1.20 0.50 - 05/06 MH Lvl 1.40 /2017 [facility] CHEM PANEL Glucose Lvl 200 70 - 99 05/ [facility] CHEM PANEL BUN 25 7 - 22 05/ [facility] CHEM PANEL CO2 28 24 - 32 05/ [facility] CHEM PANEL Sodium Lvl 141 135 - 145 05/ [facility] CHEM PANEL Chloride Lvl 109 95 - 109 05/ [facility] CHEM PANEL Potassium 4.7 3.5 - 5.1 05/06 Lvl /2017 [facility] HEMATOLOGY MPV 7.7 7.4 - 10.4 05/ [facility] HEMATOLOGY RDW 15.6 11.5 - 05/ MH 14.5 /2017 [facility] HEMATOLOGY Platelet 185 133 - 450 05/ [facility] HEMATOLOGY MCH 27.9 27.0 - 05/06 31.0 [facility] HEMATOLOGY MCV 81.7 80.0 - 05/06 98.0 /2017 [facility] HEMATOLOGY MCHC 34.1 32.0 - 05/06 MH 36.0 /2017 [facility] HEMATOLOGY RBC 4.10 4.20 - 05/06 MH 5.40 /2017 [facility] HEMATOLOGY WBC 7.8 3.7 - 10.4 05/ [facility] HEMATOLOGY Hct 33.5 36.0 - 05/ MH 48.0 /2017 [facility] HEMATOLOGY Hgb 11.4 12.0 - 05/06 MH 16.0 /2017 [facility] CHEM PANEL Total 6.5 6.4 - 8.4 / Protein [facility] CHEM PANEL Albumin Lvl 3.0 3.5 - 5.0 / [facility] CHEM PANEL ALT 24 0 - 65 / [facility] CHEM PANEL Bili Total 0.3 0.2 - 1.3 02/15 [facility] CHEM PANEL Alk Phos 45 39 - 136 / [facility] CHEM PANEL A/G Ratio 0.9 0.7 - 1.6 02/15 [facility] CHEM PANEL AST 23 0 - 37 05/ [facility] CHEM PANEL Globulin 3.5 2.7 - 4.2 05/04 MH /2018 [facility] CHEM PANEL B/C Ratio 25 6 - 25 02/15 [facility] URINE AND UA Ketones Negative Negative 02/15 [facility] mg/dL mg/dL /2017 [facility] URINE AND UA Bili Negative Negative 02/15 [facility] *NA* /2017 [facility] (02/15/18 3:59 AM) URINE AND UA Sq Epi Occasional Few /LPF 02/15 [facility]OOL /LPF /2017 [facility] URINE AND UA RBC 9 0 - 2 02/15 [facility] URINE AND UA Blood Small Negative 02/15 [facility] *ABN* /2017 [facility] (02/15/18 3:59 AM) URINE AND UA Glucose Negative Negative 02/15 [facility] mg/dL mg/dL [facility] URINE AND UA Nitrite Negative Negative 02/15 [facility] (02/15/18 3:59 AM) [facility] URINE AND UA <=1.0 0.1 - 1.0 02/15 [facility] Urobilinogen /2017 [facility] URINE AND UA WBC 7 0 - 5 02/15 [facility] URINE AND UA Leuk Est Negative Negative 02/15 [facility] (02/15/18 3:59 AM) [facility] URINE AND UA Color Ltyellow 02/15 STOOL [facility] URINE AND UA Turbidity Clear Clear 02/15 [facility] (02/15/18 3:59 AM) [facility] URINE AND UA Protein Negative Negative 02/15 [facility] mg/dL mg/dL [facility] URINE AND UA pH 6.0 5.0 - 8.0 02/15 STOOL [facility] URINE AND UA Spec Grav 1.015 <=1.030 02/15 STOOL [facility] HEMATOLOGY Monocytes 10.5 2.0 - 12.0 02/14 [facility] HEMATOLOGY Basophils 0.4 0.0 - 1.0 02/14 /2017 [facility] HEMATOLOGY Eosinophils 4.7 0.0 - 4.0 02/14 /2017 [facility] HEMATOLOGY Eosinophils 0.4 0.0 - 0.5 02/14 MH # /2017 [facility] HEMATOLOGY Monocytes # 0.9 0.0 - 0.8 02/14 [facility] HEMATOLOGY Segs-Bands # 5.2 1.5 - 8.1 02/14 [facility] HEMATOLOGY Lymphocytes 2.4 1.0 - 5.5 02/14 MH # /2018 [facility] HEMATOLOGY Lymphocytes 27.0 20.0 - 05/ MH 40.0 /2018 [facility] HEMATOLOGY Segs 57.4 45.0 - / 75.0 /2018 [facility] CARDIAC CK MB Index 1.6 0.0 - 2.5 / ENZYMES /2018 [facility] CARDIAC Total CK 215 12 - 191 / ENZYMES /2018 [facility] CARDIAC CK MB 3.4 0.5 - 3.6 / ENZYMES /2017 [facility] CARDIAC Troponin-I <0.02 0.00 - / ENZYMES 0.40 /2017 [facility] CHEM PANEL Phosphorus 3.7 2.5 - 4.5 / MH /2017 [facility] CHEM PANEL Magnesium 2.2 1.8 - 2.4 / Lvl /2017 [facility] HEMATOLOGY Eosinophils 2.7 0.0 - 4.0 02/13 /2017 [facility] HEMATOLOGY Eosinophils 0.3 0.0 - 0.5 / # /2017 [facility] HEMATOLOGY Basophils # 0.1 0.0 - 0.2 02/13 /2017 [facility] HEMATOLOGY INR 1.15 0.85 - 02/13 1.17 /2017 [facility] HEMATOLOGY PT 14.7 12.0 - 02/13 14.7 /2017 [facility] HEMATOLOGY PTT 30.1 22.9 - 02/13 35.8 /2018 [facility] Pathology Reports No Data Provided for This Section Diagnostic Reports Report Value Date Source Chest 1view DX Clinical Indication: L chest pain s/p removal of sternotomy wires 02/22/2018 [facility] Comparison: February 18, 2018 FINDINGS: The frontal chest radiograph shows decreased lung [...] left lower lobe atelectasis versus pneumonia. SL: [id number] Chest 1view DX Clinical Indication: - post op; 02/18/2018 [facility] Comparison: 02/13/2018 Technique: X-ray chest frontal projection FINDINGS: There are low lung volumes. There is accentuation of vascular structures. The patient is status post valve replacement. The mediastinum and naveed are unremarkable. Postsurgical changes are noted in the r ight shoulder joint. The patient is status post median sternotomy. IMPRESSION: Lower lung volumes. No acute abnormality. SL: [id number] Chest 2 views DX CHEST TWO VIEW 02/13/2018 [facility] INDICATION: Weakness and chest pain. COMPARISON: 11/29/2011 chest x-ray FINDINGS: Mild stable right hemidiaphragm elevation. The lungs are clear no pleural abnormality. Cardiomediastinal silhouette and bony thorax are normal. Right shoulder prosthesis. Sternal closure devices are present most of these are fractured. IMPRESSION: No acute process evident. END IMPRESSION SL: [id number] Consultation Notes No Data Provided for This Section Discharge Summaries No Data Provided for This Section History and Physicals No Data Provided for This Section Vital Signs Vital Sign Value Date Comments Source Temperature Oral (F) 98.8 F 02/24/2018 [facility] Heart Rate 63 02/24/2018 [facility] Systolic (mm Hg) 154 02/24/2018 [facility] Diastolic (mm Hg) 70 02/24/2018 [facility] Respitory Rate 18 02/24/2018 [facility] Temperature Oral (F) 98.5 F 02/24/2018 [facility] Systolic (mm Hg) 152 02/24/2018 [facility] Diastolic (mm Hg) 68 02/24/2018 [facility] Respitory Rate 18 02/24/2018 [facility] Heart Rate 72 02/24/2018 [facility] Heart Rate 78 02/24/2018 [facility] Temperature Oral (F) 97.6 F 02/24/2018 [facility] Systolic (mm Hg) 155 02/24/2018 [facility] Diastolic (mm Hg) 76 02/24/2018 [facility] Respitory Rate 20 02/24/2018 [facility] Weight 86.364 02/22/2018 [facility] BMI Calculated 32.68 02/22/2018 [facility] Height 162.56 cm 02/22/2018 [facility] Height 165.1 cm 02/22/2018 [facility] BMI Calculated 34.19 02/22/2018 [facility] Weight 93.182 02/22/2018 [facility] Respitory Rate 18 02/19/2018 [facility] Systolic (mm Hg) 125 02/19/2018 [facility] Diastolic (mm Hg) 68 02/19/2018 [facility] Heart Rate 70 02/19/2018 [facility] Temperature Oral (F) 98.2 F 02/19/2018 [facility] Respitory Rate 18 02/19/2018 [facility] Systolic (mm Hg) 114 02/19/2018 [facility] Diastolic (mm Hg) 66 02/19/2018 [facility] Heart Rate 70 02/19/2018 [facility] Temperature Oral (F) 98.4 F 02/19/2018 [facility] Respitory Rate 18 02/19/2018 [facility] Heart Rate 70 02/19/2018 [facility] Systolic (mm Hg) 148 02/19/2018 [facility] Diastolic (mm Hg) 66 02/19/2018 [facility] [facility] Temperature Oral (F) 97.6 F 02/19/2018 [facility] Weight 90.028 02/14/2018 [facility] BMI Calculated 33.03 02/14/2018 [facility] Height 165.1 cm 02/14/2018 [facility] Weight 90.028 02/14/2018 [facility] Weight 88.636 02/13/2018 [facility] Encounters Location Location Encounter Encounter Reason Attending ADM DC Status Source Details Type Number For Provider Date Date Visit [facility] Inpatient [id number] Ashish 02/13 02/19 [facility] /2017 [facility] Observation [id number] Ashish 02/22 02/24 [facility] /2017 [facility] Procedures Procedure Code Date Perfomer Comments Source Aortic valve [id number] [facility] replacement Appendectomy [id number] [facility] Operation on [id number] [facility] shoulder joint Partial lobectomy [id number] [facility] of thyroid Assessment and Plan Assessment and Plan Date Source Extracted from:Title: Progress Note 02/24/2018 [facility] Author: Nilo James MD Date: 02/23/18 1.Pain of left breast - Resolving - Likely MSK v Psychiatric v Other - LowLikelihoodfor CVSurgery Source (Dr. 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) -Exacerbatedby RecentHospitalizationImmobilization - Continue to Monitor 3.Leukocytosis - Likely 2/2 Reactive Process - Blood Culture: Preliminary Negative - Urine Culture: Negative (Final) - Trend Vitals and Labs - No Antibiotics at this Time 4.Atelectasis - Improving - Encourage Incentive Spirometryand Ambulation 5.CKD (chronic kidney disease), stage III - At Baseline 6.AF - Atrial fibrillation - Continue Home Medication 7.Hypothyroidism - Continue Home Medication 8.Diabetes mellitus -Resume Home Dose - Continue Insulin Sliding Scale - Accu-Cheks at AC and HS 9.Hypertension - ContinueHome Medication 10.Constipation - Likely 2/2 Opioids v Other - Start Bowel Regimen SCDs Inpatient Admission for IV Pain Control Anticipate Discharge in 24hrs Addendum by Sam Barber MD on 02/24/2018 11:44 CDT Attending Note Preceptor Attestation: We discussed the patient at or immediately after the time of the visit. My participation in the patients care is as follow: History:I reviewed the history obtained by the resident. Exam:I repeated the exam performed by the resident and designate this as one of the dobbins components of the visit. Medical Decision Making:The decision making was performed by the resident, and I agree with those plans. 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) -Exacerbatedby RecentHospitalizationImmobilization - PRN PainMedication - Continue to Monitor 3.Leukocytosis - DDx: Reactive v Infectious - Blood Culture and Urine Cultures In-lab - Trend Vitals and Labs - No Antibiotics at this Time 4.Atelectasis - Likely 2/2 Recent CV Surgery - Encourage Incentive Spirometryand Ambulation - CXR Reviewed 5.CKD (chronic kidney disease), stage III - At Baseline 6.AF - Atrial fibrillation - Resume Home Medication 7.Hypothyroidism - Resume Home Medication 8.Diabetes mellitus -Resume Home Dose - Insulin Sliding ScaleInitiated - Accu-Cheks at AC and HS 9.Hypertension - Resume Home Medication 10.Pulmonary fibrosis - Stable 11.S/P AVR (aortic valve replacement) - Asymptomatic SCDs Observation Admission for Unclear Left Upper Chest Pain Awaiting CV Surgery Reevaluation +/- Advanced Chest Imaging Preceptor Attestation: 77 year old with recent surgery for fractured sternal wire here with 3 days of increasing left sided chest pain. On my exam, she does not have any breast tenderness but rather tenderness in the pectoral is muscle area, also pain with arm movements consistent with pectoralis contraction. CXR still shows some sternal wire fragments so this pain may be related. She does not have pain with cough or breathi ng, has a mild leukocytosis but no left shift and normal procalcitoninso I do not think this is consistent with pneumonia. We will await reevaluation with CV surgery, appreciate taxation consultant input. We discussed the patient at or immediately after the time of the visit. My participation in the patients care is as follow: I obtained a history directly from the patient after the resident did so, and designate this as one or more of the dobbins components of this visit I repeated the examination of the patient after the resident did so, and designate this as one or more of the dobbins components of this visit. The decision making was performed by the resident, and I agree with those plans. _ Tiffanie Johnson MD, FAAFP Family Medicine Attendinge Extracted from:Title: Cardiology 02/19/2018 [facility] Author: Rachid Solo MD Date: 02/19/18 Impression and Plan 1. Chest pain - Reproducible with palpation at site of protruding sternal wir; pt now post op by Dr. Stapleton - Hemodynamics are stable 2. / S/P AVR - performed in 2010 - EF 60-65%, Normal AVR function 3. Hypertension - Controlled on losartan - Monitor 4. DM II - On insulin replacement 5. CKD III - Stable Cr Extracted from:Title: Cardiology Author: Rowan Mitchell NP Date: 02/15/18 Patient: BEAU PALOMINO Age: 77 years Sex: Female : 1940 Associated Diagnoses: None Author: Rowan Mitchell NP History of Present Illness Cardiology APPRENTICE JOCKEY with Dr. Dalton This is a 77 y.o female with history of aortic valve replacement in 2010, hypertension, hyperlipidemia, Stage III CKD, GERD, Pulmonary fibrosis, and DM II. She presented ot the hospital with complaints of upper sternal chest pain at the site of a sternal wire protruding from the skin. She states this has been ongoing for a few weeks and just became "unbearable". Her surgery was previously pe rformed by Dr. Fatima. She denies any chest pressure, increased shortness of breath, orthopnea, vertigo, palpitations, or syncope. She is currently pending removal of the sternal wire planned for Sunday with Dr. Montgomery. Review of Systems Constitutional: Negative. Respiratory: Negative. Cardiovascular: Chest pain: Midsternal. Gastrointestinal: Negative. Genitourinary: Negative. Endocrine: Negative. Musculoskeletal: Negative. Integumentary: Negative. Neurologic: Negative. Health Status Allergies: Allergic Reactions (All) Severity Not Documented Betapace- No reactions were documented. Lopressor- No reactions were documented. Metoprolol- No reactions were documented. Toprol-XL- No reactions were documented. Nonallergic Reactions (All) Severity Not Documented MetFORMIN- Vomiting. Canceled/Inactive Reactions (All) Severity Not Documented Codeine- No reactions were documented. Iodine topical- No reactions were documented. NKFA- No reactions were documented. Current medications: (Selected) Inpatient Medications Ordered Colace 100 mg oral capsule: 100 mg, 1 cap, PO, BID, PRN: Constipation Dextrose 50% Syringe: 12.5 gm, 25 mL, IVP, PRN, PRN: Blood Glucose Results Dextrose 50% Syringe: 25 gm, 50 mL, IVP, PRN, PRN: Blood Glucose Results Lantus Solostar Pen 100 units/mL subcutaneous solution: 33 unit, 0 ml/hr, SUB-Q , QAM Tylenol: 325 mg, PO, Q4H, PRN: Pain Score 1-5 Zofran ODT: 4 mg, 1 tab, PO, Q8H, PRN: Nausea glucagon: 1 mg, IM, PRN, PRN: Blood Glucose Results hydrALAZINE: 10 mg, 0.5 mL, IVP, Q6H, PRN: Hypertension insulin lispro: 1 unit, 0.01 mL, SUB-Q, TID-Before Meals, PRN: Blood Glucose Results insulin lispro: 2 unit, 0.02 mL, SUB-Q, TID-Before Meals, PRN: Blood Glucose Results insulin lispro: 3 unit, 0.03 mL, SUB-Q, TID-Before Meals, PRN: Blood Glucose Results insulin lispro: 4 unit, 0.04 mL, SUB-Q, TID-Before Meals, PRN: Blood Glucose Results insulin lispro: 5 unit, 0.05 mL, SUB-Q, TID-Before Meals, PRN: Blood Glucose Results levothyroxine: 50 microgram, 1 tab, PO, Daily liothyronine: 5 microgram, 1 tab, PO, Daily losartan: 50 mg, 1 tab, PO, Daily morphine Sulfate: 1 mg, IVP, Q6H, PRN: Pain Score 7-10 naproxen: 250 mg, PO, BID normal saline 0.9% IV 1,000 mL: 75 ml/hr, IV, Stop: 03/15/18 14:25:00 CDT trazodone: 25 mg, 0.5 tab, PO, Bedtime Documented Medications Suspended Dialyvite 3000 oral tablet: 1 tab, PO, Daily, 0 Refill(s) Lantus Solostar Pen 100 units/mL subcutaneous solution: 56 unit, SUB-Q, QAM Lantus Solostar Pen 100 units/mL subcutaneous solution: sliding scale, SUB-Q, Bedtime, 0 Refill(s) fenofibrate 48 mg oral tablet: 1 cap, PO, Daily gabapentin 100 mg oral capsule: 100 mg, 1 cap, PO, TID hydrALAZINE 50 mg oral tablet: 50 mg, 1 tab, PO, BID, 0 Refill(s) levothyroxine 50 mcg (0.05 mg) oral tablet: 50 microgram, 1 tab, PO, Daily, 30 tab, 0 Refill(s) liothyronine 5 mcg oral tablet: 5 microgram, 1 tab, PO, Daily, 30 tab, 0 Refill (s) losartan 100 mg oral tablet: 100 mg, 1 tab, PO, Daily, 30 tab, 0 Refill(s) Problem list: All Problems Abnormal metabolic state in diabetes mellitus / SNOMED CT 945123104 / Confirmed AF - Atrial fibrillation / SNOMED CT 1379212274 / Confirmed AVR - Aortic valve replacement / SNOMED CT 8673122547 / Confirmed Diabetes mellitus / SNOMED CT 416991884 / Confirmed Hypothyroidism / SNOMED CT 74281679 / Confirmed Maze procedure / SNOMED CT 7556180031 / Confirmed Paroxysmal a-fib / SNOMED CT 114989916 / Confirmed Wound debridement; sternal wound / SNOMED CT 074621632 / Confirmed Histories Past Medical History: No active or resolved past medical history items have been selected or recorded. Family History: No family history items have been selected or recorded. Procedure history: Aortic valve replacement (104927454). Appendectomy (228575036). Operation on shoulder joint (8135685736). Partial lobectomy of thyroid (62485498). Social History Social and Psychosocial Habits Alcohol 02/13/2018 Use: Never Tobacco 02/13/2018 Use: Never smoker Type: Cigarettes Exposure to Tobacco Smoke None Cigarette Smoking Last 365 Days No Reg Smoking Cessation Counseling Yes . Physical Examination VS/Measurements Vital Signs (last 24 hrs) Last Charted Temp Oral 97.9 DegF (FEBRUARY 15 08:) Heart Rate Peripheral 74 bpm (FEBRUARY 15:) Resp Rate 18 BRMIN (FEBRUARY 15:) SBP H 144mmHg (FEBRUARY 15:) DBP 77 mmHg (FEBRUARY 15:) SpO2 100 % (FEBRUARY 15 04:00) General: Alert and oriented, Mild distress. Neck: Supple, Non-tender, No carotid bruit, No jugular venous distention. Respiratory: Lungs are clear to auscultation. Cardiovascular: Normal rate, Regular rhythm, III/ HSM LLSB +S4. Gastrointestinal: Soft, Non-tender, Non-distended. Integumentary: Warm, Dry, [place]. Neurologic: Alert, Oriented. Psychiatric: Cooperative. Impression and Plan 1. Chest pain - Reproducible with palpation at site of protruding sternal wire - CE neg - NSR, RBBB on ECG - No acute ECG changes 2. / S/P AVR - performed in 2010 - Will assess valve function with LVWM with echo 3. Hypertension - Controlled on losartan and hydralazine - Monitor 4. DM II - On insulin replacement 5. CKD III - Stable Cr Further recommendations after Echo completed Discussed in rounds with Dr. Dalton Addendum by Rachid Solo MD on 02/15/2018 13:22 As above. Will review echo. She's an increased, but acceptable risk for surgery. Extracted from:Title: History and Physical Author: Tiffanie Carty MD Date: 02/13/18 1.JOSIAH (acute kidney injury) - Subjective PMH of CKD III - Elevated Cr - Complaining of burning c urination, UA pending - Had aortic valve replacement in 2010, gentle IVF - BMP in AM 2.Surgical site reaction - Anxiety v. discomfort from operation - Ketorolac 7.5 mg IVP Q6h - Pt is aware of NSAID with her JOSIAH and discussed risk v benefit and she agreed to IVP injections - Morphine PRN for 7-10 pn 3.Diabetes mellitus - Restarted 1/2 home dose insulin of 28u Lantus tomorrow AM - SSI 4.H/O aortic valve replacement - Monitor for murmur - Careful with IVF rate, recommend slow rate 5.Hypothyroidism - Restarted home dose Synthroid 6.H/O: osteoarthritis - Stable - Continue to monitor Ambulation Observation Pt seen and discussed with senior resident Hiren Ybarra DO, ROSAMARIA, ATC PGY-1 MSO#[id number] Senior Note 77 y/o F c PMH of DMII, OA, Hypothyroid, GERD, CKD III, and aortic valve replacement in 2010 presenting with chest pain. Patient reports that the chest pain is coming from a wire that is sticking out fr om her sternotomy. Patient denies trauma.. Denies pain that's worse with exertion. Pain is most likely related to irritation from a wire based on clinical history, physical exam and CXR. Will re-st art home thyroid medications an insulin. Will treat discomfort with low dose IV toradol in the setting of JOSIHA ang give IVFH overnight to help resolve the JOSIAH. Consider Cardio-thoracic consult if pain no t resolved. Discussed plan of care with attending physician Dr. Bowers. Tiffanie Carty MD Family Medicine PGY3 [facility] [id number] Addendum by Ashish Bowers MD on 02/17/2018 13:20 CDT I was physically present during the dobbins portions of the patient evaluation and the medical decision making when performed by the resident and I concur with the above documented decisions made by the team under my guidance. Plan of Care No Data Provided for This Section Social History Social History Date Source Social History TypeResponse 02/22/2018 [facility] Alcohol Never Smoking Status Never smoker; Type: Cigarettes; Exposure to Tobacco Smoke None; Cigarette Smoking Last 365 Days No; Reg Smoking Cessation Counseling Yes entered on: 02/22/18 Family History No Data Provided for This Section Advance Directives No Data Provided for This Section Functional Status No Data Provided for This Section
--- OUTSIDE RECORDS SUMMARY | 2019-05-10 11:12 | XMS REPORT ---
[...] End Date Status Dosage System Date Gabapentin [facility] 83000-93 Active not defined 40-01 HydrALAZINE HCl [facility] 44364-27 Active not defined 34-15 Liothyronine Sodium [facility] 20175-89 Active not defined 51-01 Fenofibrate [facility] 96945-28 Active not defined 23-10 Dialyvite 3000 [facility] 46385-05 Active not defined 14-09 Levothyroxine [facility] 94208-55 Active not defined Sodium 01-01 Nitrofurantoin [facility] 02799-86 Active not defined Monohyd Macro 22-01 Ezetimibe [facility] 86105-40 Active not defined 13-05 Xarelto [facility] 39689-29 Active not defined 77-10 Results No Known Results Summary Purpose eClinicalWorks Submission
[2019-05-10 12:06] LABS: Absolute Lymphocytes (CBC) 2.6 K/uL (0.7-4.9); Basophils % 0.6 % (0-1.3); Hematocrit 37.2 % (36.0-45.0); Lymphocytes % 28.1 % (15.3-44.8); MPV 7.9 fL (7.6-11.3)
[2019-05-10 12:23] LABS: Albumin 3.8 g/dL (3.4-5.0); Bilirubin Direct 0.2 mg/dL (0-0.2); Bilirubin Total 0.5 mg/dL (0.2-1.0); Potassium 4.2 mmol/L (3.5-5.1); Protein, Total 7.5 g/dL (6.4-8.2)
[2019-05-10] MEDS ORDERED: ONDANSETRON 4 MG/2 ML VIAL ONE (12:40)
[2019-05-10 12:47] LABS: Urine Blood NEGATIVE (NEG); Urine Glucose NEGATIVE (NEG); Urine Protein NEGATIVE (NEG); Urine pH 6.5 (5.0-7.0)
[2019-05-10] MEDS ORDERED: NA CHLORIDE 0.9% 500 ML ONE (13:24)
--- NOTE | 2019-05-10 13:44 | RAD REPORT ---
EXAM DESCRIPTION: CT - Abdomen Pelvis W Contrast - 05/10/2019 12:48 pm CLINICAL HISTORY: Abdominal pain COMPARISON: 2014 TECHNIQUE: Computed axial tomography of the abdomen pelvis was obtained. 100 cc Isovue-300 was admin istered intravenously. Oral contrast was not requested which limits evaluation of bowel. All CT scans are performed using dose optimization technique as appropriate and may include automated exposure control or mA/KV adjustment according to patient size. FINDINGS: The liver, spleen, and adrenal and right kidney appear unremarkable. 3 millimeter calculus the left kidney. No hydronephrosis The pancreas is atrophic with dilatation of the pancreatic duct There is no evidence of diverticulitis. A neurostimulator device is in place IMPRESSION: 3 millimeter nonobstructing left renal calculus Atrophic pancreas with dilatation of the pancreatic duct
--- NOTE | 2019-05-10 15:17 | ER ---
Nurse's Notes [facility] Name: Lynda Esquivel Age: 78 yrs Sex: Female : 1940 Arrival Date: 05/10/2019 Time: 11:10 Bed 14 Private MD: Олег Calhoun V Diagnosis: Unspecified abdominal pain Presentation: 05/10 11:11 Presenting complaint: Child states: "She hasn't had a bowel movement since Sunday" aj1 Patient reports that she tried mag citrate, stool softener and Miralax but she still isn't able to have a bowel movement. Transition of care: patient was not received from another setting of care. Onset of symptoms was April 2019. Risk Assessment: Do you want to hurt yourself or someone else? Patient reports no desire to harm self or others. Initial Sepsis Screen: Does the patient meet any 2 criteria? No. Patient's initial sepsis screen is negative. Does the patient have a suspected source of infection? No. Patient's initial sepsis screen is negative. Care prior to arrival: None. 11:11 Method Of Arrival: Wheelchair aj 11:11 Acuity: SHANIQUA 3 aj1 Triage Assessment: 11:15 General: Appears in no apparent distress. uncomfortable, Behavior is calm, cooperative, aj1 appropriate for age. Pain: Complains of pain in abdomen Pain currently is 8 out of 10 on a pain scale. Neuro: Level of Consciousness is awake, alert, obeys commands. Cardiovascular: Patient's skin is warm and dry. Respiratory: Airway is patent Respiratory effort is even, unlabored, Respiratory pattern is regular, symmetrical. GI: Reports constipation. Historical: - Allergies: 11:15 metformin; aj1 11:15 Omjhlcw-Yuc-Wka Reductase Inhibitors; aj1 - Home Meds: 11:15 losartan 50 mg oral tab 1 tab once daily [Active]; Lantus Sub-Q twice a day [Active]; aj1 levothyroxine 50 mcg oral tab once daily [Active]; Co Q-10 oral oral daily [Active]; biotin 10 mg oral tab daily [Active]; Stool Softener oral oral 2 times per day [Active]; fenofibrate oral oral once daily [Active]; liothyronine 5 mcg oral tab 1 tab once daily [Active]; prednisone 2.5 mg Oral tab once daily [Active]; Citracal Regular oral oral daily [Active]; carvedilol 3.125 mg oral tab 1 tab 2 times per day [Active]; Xarelto 10 mg oral tab once daily [Active]; Magnesium Oxide Oral daily [Active]; - PMHx: 11:15 Atrial Fib; Diabetes - IDDM; Hypertension; Hypothyroidism; pulmonary fibrosis; Renal aj1 Disease; atrificial heart valve; - Immunization history:: Flu vaccine is up to date. - Social history:: Smoking status: Patient/guardian denies using tobacco. - Ebola Screening: : Patient denies travel to an Ebola-affected area in the 21 days before illness onset. Screenin:20 Abuse screen: Denies threats or abuse. Nutritional screening: No deficits noted. rb1 Tuberculosis screening: No symptoms or risk factors identified. Fall Risk None identified. Assessment: 11:20 General: Appears in no apparent distress. comfortable, Behavior is calm, cooperative. rb1 Neuro: Level of Consciousness is awake, alert, obeys commands, Oriented to person, place, time, situation. Cardiovascular: Capillary refill < 3 seconds is brisk in bilateral fingers. Respiratory: Airway is patent Respiratory effort is even, unlabored, Respiratory pattern is regular, symmetrical. GI: Reports constipation. : No signs and/or symptoms were reported regarding the genitourinary system. Derm: Skin is pink, warm \\T\\ dry. 11:20 GI: Bowel sounds present X 4 quads. Abd is soft X 4 quads. rb1 12:15 Reassessment: Patient appears in no apparent distress at this time. No changes from rb1 previously documented assessment. 12:37 Reassessment: Pt. went CT. rb1 13:15 Reassessment: Patient appears in no apparent distress at this time. Patient and/or rb1 family updated on plan of care and expected duration. Pain level reassessed. Patient is alert, oriented x 3, equal unlabored respirations, skin warm/dry/pink. Pain 6/10. Provider notified. 14:00 Reassessment: Patient appears in no apparent distress at this time. No changes from rb1 previously documented assessment. Family at bedside. 15:00 Reassessment: Patient appears in no apparent distress at this time. Patient and/or rb1 family updated on plan of care and expected duration. Pain level reassessed. Patient is alert, oriented x 3, equal unlabored respirations, skin warm/dry/pink. Pt. had a liquid bowel movement. Provider notified. 15:19 Reassessment: Pt. had another liquid bowel movement. Stool is brown. rb1 15:55 Reassessment: Patient appears in no apparent distress at this time. No changes from rb1 previously documented assessment. Pt. had another bowel movement before being discharged. Vital Signs: 11:15 BP 108 / 56; Pulse 59; Resp 18; Temp 98.0; Pulse Ox 96% on R/A; Weight 68.95 kg (R); aj1 Height 5 ft. 4 in. (162.56 cm) (R); 12:15 BP 150 / 55; Pulse 58; Resp 16; Temp 98.0(O); Pulse Ox 97% on R/A; Pain 6/10; rb1 13:15 BP 178 / 60; Pulse 61; Resp 17; Temp 98.2(O); Pulse Ox 97% on R/A; Pain 6/10; rb1 14:09 BP 166 / 64; Pulse 63; Resp 17; Temp 98.3(O); Pulse Ox 99% on R/A; Pain 5/10; rb1 15:00 BP 159 / 61; Pulse 61; Resp 17; Temp 98.1(O); Pulse Ox 99% on R/A; Pain 5/10; rb1 15:45 BP 150 / 59; Pulse 60; Resp 16; Temp 97.9(TE); Pulse Ox 100% ; Pain 3/10; rb1 11:15 Body Mass Index 26.09 (68.95 kg, 162.56 cm) aj1 13:15 Pt. just walked back from the restroom [facility] ED Course: 11:10 Patient arrived in ED. as 11:11 Олег Calhoun MD is Private Physician. as 11:12 Triage completed. aj1 11:15 Arm band placed on Patient placed in an exam room. 1 11:18 Dave Higgins PA is PHCP. [facility] 11:18 Wade Gomez MD is Attending Physician. [facility] 11:19 PHCP role handed off by Dave Higgins PA cp 11:19 Wade Capps PA is PHCP. cp 11:20 Patient has correct armband on for positive identification. Bed in low position. Call rb1 light in reach. Side rails up X 1. Pulse ox on. NIBP on. Warm blanket given. 11:38 Taina Fang, RN is Primary Nurse. rb1 11:55 Inserted saline lock: 22 gauge in left antecubital area, using aseptic technique. Blood rb1 collected. 12:13 Radiology exam delayed due to lab results not completed at this time. (BUN/Creatinine). mw3 12:49 CT completed. Patient tolerated procedure well. Patient moved back from CT. mw3 12:52 CT Abd/Pelvis - IV Contrast Only In Process Unspecified. EDMS 16:01 No provider procedures requiring assistance completed. IV discontinued, intact, rb1 bleeding controlled, No redness/swelling at site. Pressure dressing applied. Administered Medications: 12:30 Drug: Zofran 4 mg Route: IVP; Site: left antecubital; rb1 12:45 Follow up: Response: No adverse reaction; Nausea is decreased rb1 13:23 Drug: NS 0.9% 500 ml Route: IV; Rate: 100 ml/hr; Site: left antecubital; rb1 16:00 CANCELLED (Pt. had a bowel movement on her own): Fleet Enema 133 ml [place] once; may repeat rb1 once Output: 15:00 Stool: 1 (Loose Stool) ; Total: 0ml. rb1 15:19 Stool: 1 (Loose Stool) ; Total: 0ml. rb1 15:55 Stool: 1 (Loose Stool) ; Total: 0ml. rb1 Outcome: 15:16 Discharge ordered by MD. cp 16:01 Patient left the ED. rb1 16:01 Discharged to home via wheelchair, with family. rb1 16:01 Condition: stable 16:01 Discharge instructions given to patient, Instructed on discharge instructions, follow up and referral plans. Demonstrated understanding of instructions, follow-up care, Prescriptions given X none Signatures: Dispatcher [employer] EDChelsie Woody RN RN Dave Bellamy PA PA jmm Martinez, Amelia as Page, Corey, PA PA cp Barber, Rebecca, RN RN rb1 Angelique Alvarez mw3 Corrections: (The following items were deleted from the chart) 13:27 13:15 Reassessment: Patient appears in no apparent distress at this time. Patient rb1 and/or family updated on plan of care and expected duration. Pain level reassessed. Patient is alert, oriented x 3, equal unlabored respirations, skin warm/dry/pink. Pain 8. Provider notified. Grandmother at bedside. rb1 13:28 12:15 BP 106 / 68; Pulse 70bpm; Resp 17bpm; Pulse Ox 97% RA; Temp 98.2F Oral; Pain rb1 8; rb1 13:28 13:15 BP 103 / 68; Pulse 67bpm; Resp 19bpm; Pulse Ox 97% RA; Temp 98.0F Oral; Pain rb1 05/24; rb1
--- NOTE | 2019-05-10 15:18 | EDPHYS ---
Physician Documentation [facility] Name: Lynda Esquivel Age: 78 yrs Sex: Female : 1940 Arrival Date: 05/10/2019 Time: 11:10 Bed 14 Private MD: Олег Calhoun V ED Physician Wade Gomez HPI: 05/10 11:36 This 78 yrs old Female presents to ER via Wheelchair with complaints of cp Constipation. 11:36 The patient presents with abdominal pain that is diffuse. cp 11:36 Onset: The symptoms/episode began/occurred gradually. Associated signs and symptoms: cp Pertinent positives: constipation, nausea, Pertinent negatives: blood in stools, chest pain, diarrhea, dysuria, fever, vomiting. Patient reports last bowel movement was 4 days ago. Patient reports taking OTC laxative and magnesium citrate without bowel movement. Historical: - Allergies: 11:15 metformin; aj1 11:15 Fonkieu-Yao-Ppc Reductase Inhibitors; aj1 - Home Meds: 11:15 losartan 50 mg oral tab 1 tab once daily [Active]; Lantus Sub-Q twice a day [Active]; aj1 levothyroxine 50 mcg oral tab once daily [Active]; Co Q-10 oral oral daily [Active]; biotin 10 mg oral tab daily [Active]; Stool Softener oral oral 2 times per day [Active]; fenofibrate oral oral once daily [Active]; liothyronine 5 mcg oral tab 1 tab once daily [Active]; prednisone 2.5 mg Oral tab once daily [Active]; Citracal Regular oral oral daily [Active]; carvedilol 3.125 mg oral tab 1 tab 2 times per day [Active]; Xarelto 10 mg oral tab once daily [Active]; Magnesium Oxide Oral daily [Active]; - PMHx: 11:15 Atrial Fib; Diabetes - IDDM; Hypertension; Hypothyroidism; pulmonary fibrosis; Renal aj1 Disease; atrificial heart valve; - Immunization history:: Flu vaccine is up to date. - Social history:: Smoking status: Patient/guardian denies using tobacco. - Ebola Screening: : Patient denies travel to an Ebola-affected area in the 21 days before illness onset. ROS: 11:45 Constitutional: Negative for body aches, chills, fever, poor PO intake. cp 11:45 Eyes: Negative for injury, pain, redness, and discharge. cp 11:45 ENT: Negative for drainage from ear(s), ear pain, sore throat, difficulty swallowing, difficulty handling secretions. 11:45 Cardiovascular: Negative for chest pain, edema, palpitations. 11:45 Respiratory: Negative for cough, shortness of breath, wheezing. 11:45 Abdomen/GI: Positive for abdominal pain, constipation, Negative for vomiting, diarrhea, anorexia, black/tarry stool, rectal bleeding. 11:45 Back: Negative for pain at rest, pain with movement, radiated pain. 11:45 : Negative for urinary symptoms. 11:45 Neuro: Negative for altered mental status, weakness. 11:45 All other systems are negative. Exam: 11:55 Constitutional: The patient appears in no acute distress, alert, awake, cp non-diaphoretic, non-toxic, well developed, well nourished. 11:55 Head/Face: Normocephalic, atraumatic. cp 11:55 Eyes: Periorbital structures: appear normal, Conjunctiva: normal, no exudate, no injection, Sclera: no appreciated abnormality, Lids and lashes: appear normal, bilaterally. 11:55 ENT: External ear(s): are unremarkable, Nose: is normal, Mouth: is normal, Posterior pharynx: is normal, airway is patent, no erythema, no exudate. 11:55 Chest/axilla: Inspection: normal, Palpation: is normal, no crepitus, no tenderness. 11:55 Cardiovascular: Rate: bradycardic, Rhythm: regular, Edema: is not appreciated, JVD: is not appreciated. 11:55 Respiratory: the patient does not display signs of respiratory distress, Respirations: normal, no use of accessory muscles, no retractions, no splinting, no tachypnea, labored breathing, is not present, Breath sounds: are clear throughout, no decreased breath sounds, no stridor, no wheezing. 11:55 Abdomen/GI: Inspection: abdomen appears normal, Bowel sounds: active, all quadrants, Palpation: soft, in all quadrants, mild abdominal tenderness, in all quadrants, rebound tenderness, is not appreciated, voluntary guarding, is not appreciated, involuntary guarding, is not appreciated. 11:55 Back: pain, is absent, ROM is normal. 11:55 Neuro: Orientation: to person, place \T\ time. Mentation: is normal, Motor: moves all fours, strength is normal. Vital Signs: 11:15 BP 108 / 56; Pulse 59; Resp 18; Temp 98.0; Pulse Ox 96% on R/A; Weight 68.95 kg (R); aj1 Height 5 ft. 4 in. (162.56 cm) (R); 12:15 BP 150 / 55; Pulse 58; Resp 16; Temp 98.0(O); Pulse Ox 97% on R/A; Pain 6/10; rb1 13:15 BP 178 / 60; Pulse 61; Resp 17; Temp 98.2(O); Pulse Ox 97% on R/A; Pain 6/10; rb1 14:09 BP 166 / 64; Pulse 63; Resp 17; Temp 98.3(O); Pulse Ox 99% on R/A; Pain 5/10; rb1 15:00 BP 159 / 61; Pulse 61; Resp 17; Temp 98.1(O); Pulse Ox 99% on R/A; Pain 5/10; rb1 15:45 BP 150 / 59; Pulse 60; Resp 16; Temp 97.9(TE); Pulse Ox 100% ; Pain 3/10; rb1 11:15 Body Mass Index 26.09 (68.95 kg, 162.56 cm) aj1 13:15 Pt. just walked back from the restroom rb1 MDM: 11:18 Patient medically screened. [facility] 12:00 Differential diagnosis: bowel obstruction, diverticulitis, gastritis, Ureterolithiasis, cp urinary tract infection, constipation, fecal impaction. 15:15 Data reviewed: vital signs, nurses notes, lab test result(s), radiologic studies, CT cp scan. 15:15 Response to treatment: the patient's symptoms have markedly improved after treatment, cp VSS. Patient with observed bowel movement while in ED. Will discharge to home for continued monitoring. 05/10 11:36 Order name: Basic Metabolic Panel; Complete Time: 12:32 cp 05/10 12:32 Interpretation: Normal except: GLUC 194; BUN 29; CRE 1.33; GFR 38. cp 05/10 11:36 Order name: CBC with Diff; Complete Time: 12:19 cp 05/10 12:20 Interpretation: Normal except: MCV 86.6. 05/10 11:36 Order name: Creatinine for Radiology; Complete Time: 12:32 cp 05/10 13:46 Interpretation: Reviewed. 05/10 11:36 Order name: Hepatic Function; Complete Time: 12:32 cp 05/10 12:32 Interpretation: Normal except: ALK 41; GLOB 3.7; A/G 1.0. cp 05/10 11:36 Order name: Lipase; Complete Time: 12:32 cp 05/10 12:39 Order name: Urine Dipstick--Ancillary (enter results); Complete Time: 13:45 aa5 05/10 11:36 Order name: IV Saline Lock; Complete Time: 12:41 cp 05/10 11:36 Order name: Labs collected and sent; Complete Time: 12:41 cp 05/10 11:37 Order name: CT Abd/Pelvis - IV Contrast Only; Complete Time: 13:45 cp 05/10 12:39 Order name: Urine Dipstick-Ancillary (obtain specimen); Complete Time: 12:39 aa5 Administered Medications: 12:30 Drug: Zofran 4 mg Route: IVP; Site: left antecubital; rb1 12:45 Follow up: Response: No adverse reaction; Nausea is decreased rb1 13:23 Drug: NS 0.9% 500 ml Route: IV; Rate: 100 ml/hr; Site: left antecubital; rb1 16:00 CANCELLED (Pt. had a bowel movement on her own): Fleet Enema 133 ml [place] once; may repeat rb1 once Disposition: 05/11 11:23 Co-signature as Attending Physician, Wade Gomez MD I agree with the assessment and lila plan of care. Disposition: 05/10/19 15:16 Discharged to Home. Impression: Unspecified abdominal pain. - Condition is Stable. - Discharge Instructions: Abdominal Pain, Adult, Constipation, Adult. - Medication Reconciliation Form, Thank You Letter, Antibiotic Education, Prescription Opioid Use form. - Follow up: Private Physician; When: 2 - 3 days; Reason: Recheck today's complaints. - Problem is new. - Symptoms have improved. Signatures: Dispatcher [employer] EDChelsie Woody RN RN aj1 Wade Gomez MD MD cha Mickail, Joel, PA PA jmm Calderon, Audri, RN RN aa5 Wade Capps PA PA cp Taina Fang, RN RN rb1 Corrections: (The following items were deleted from the chart) 05/10 16:00 14:50 Fleet Enema 133 ml [place] once; may repeat once ordered. cp rb1 16:01 15:16 05/10/2019 15:16 Discharged to Home. Impression: Unspecified abdominal pain. rb1 Condition is Stable. Forms are Medication Reconciliation Form, Thank You Letter, Antibiotic Education, Prescription Opioid Use. Follow up: Private Physician; When: 2 - 3 days; Reason: Recheck today's complaints. Problem is new. Symptoms have improved. cp
[2019-05-10 16:19] VITALS: O2SAT 97
[2019-05-10 16:20] VITALS: BP 178/60; TEMP 98.2
== END 2019-05-10 16:01 | disposition home or self-care (01) ==
LOC: ER 11:06
DX: R10.9 Unspecified abdominal pain (principal); K59.00 Constipation, unspecified; I10 Essential (primary) hypertension; E11.9 Type 2 diabetes mellitus without complications; I48.91 Unspecified atrial fibrillation; E03.9 Hypothyroidism, unspecified; Z79.01 Long term (current) use of anticoagulants; Z79.4 Long term (current) use of insulin; Z88.8 Allergy status to other drugs, medicaments and biological substances; Z95.2 Presence of prosthetic heart valve
CPT/HCPCS: 85025; 80048; 36415; 80076; 81003; 83690; 74177; 96374; 99284; Q9967; J2405

== ENCOUNTER 2019-10-26 10:58 | Observation (INO) | payer OTHER ==
--- OUTSIDE RECORDS SUMMARY | 2019-10-26 11:00 | XMS REPORT ---
[...] End Date Status Dosage System Date Gabapentin [facility] 66262-73 Active not defined 40-01 HydrALAZINE HCl [facility] 17016-13 Active not defined 34-15 Liothyronine Sodium [facility] 13886-39 Active not defined 51-01 Fenofibrate [facility] 17123-39 Active not defined 23-10 Dialyvite 3000 [facility] 81054-02 Active not defined 14-09 Levothyroxine [facility] 89672-12 Active not defined Sodium 01-01 Nitrofurantoin [facility] 31317-47 Active not defined Monohyd Macro 22-01 Ezetimibe [facility] 38421-42 Active not defined 13-05 Xarelto [facility] 81825-77 Active not defined 77-10 Results No Known Results Summary Purpose eClinicalWorks Submission
[2019-10-26] MEDS ORDERED: MEPERIDINE HCL 25 MG/0.5 ML ONE (11:20)
[2019-10-26 11:42] LABS: Absolute Lymphocytes (CBC) 2.4 K/uL (0.7-4.9); Basophils % 0.6 % (0-1.3); Hematocrit 35.1 % (36.0-45.0); Lymphocytes % 19.3 % (15.3-44.8); MPV 8.1 fL (7.6-11.3); RBC Red Blood Cell Count 4.12 M/uL (3.86-4.86)
[2019-10-26 11:55] LABS: Potassium 3.9 mmol/L (3.5-5.1); Troponin (Emerg Dept Use Only) 0.05 ng/mL (0.0-0.045)
--- NOTE | 2019-10-26 12:44 | RAD REPORT ---
EXAM DESCRIPTION: RAD - Clavicle Left - 10/26/2019 12:24 pm CLINICAL HISTORY: PAIN Trauma, pain COMPARISON: None FINDINGS: Left clavicle, left humerus and left forearm- multiple projections Diffuse osteopenia is seen. No acute fracture or dislocation. Vascular calcification.
--- NOTE | 2019-10-26 13:13 | ER ---
Nurse's Notes [facility] Name: Lynda Esquivel Age: 78 yrs Sex: Female : 1940 Arrival Date: 10/26/2019 Time: 11:02 Bed 13 Private MD: Diagnosis: Pain in left arm;Elevated troponin Presentation: 10/26 11:07 Presenting complaint: EMS states: L arm pain that began this morning. Pt reports pain ss to bilateral arms, but L arm hurts much more. Daughter is concerned because patient has had a stroke in the past and patient does not want to move her arm. Transition of care: patient was not received from another setting of care. Onset of symptoms was October 26, 2019. Risk Assessment: Do you want to hurt yourself or someone else? Patient reports no desire to harm self or others. Initial Sepsis Screen: Does the patient meet any 2 criteria? No. Patient's initial sepsis screen is negative. Does the patient have a suspected source of infection? No. Patient's initial sepsis screen is negative. Care prior to arrival: None. 11:07 Method Of Arrival: EMS: [facility] ss 11:07 Acuity: SHANIQUA 3 ss Historical: - Allergies: 11:12 metformin; tw2 11:12 Ajchfch-Ppj-Jyq Reductase Inhibitors; tw2 11:12 Beta-Blockers (Beta-Adrenergic Bloc; tw2 11:12 Sulfa (Sulfonamide Antibiotics); tw2 - Home Meds: 11:12 Xarelto 10 mg Oral tab once daily [Active]; Citracal Regular Oral daily [Active]; tw2 biotin 10 mg Oral tab daily [Active]; carvedilol 3.125 mg Oral tab 1 tab 2 times per day [Active]; Co Q-10 Oral daily [Active]; fenofibrate Oral once daily [Active]; levothyroxine 50 mcg tab once daily [Active]; Lantus Sub-Q twice a day [Active]; liothyronine 5 mcg Oral tab 1 tab once daily [Active]; losartan 50 mg Oral tab 1 tab once daily [Active]; Magnesium Oxide Oral daily [Active]; prednisone 2.5 mg Oral tab once daily [Active]; Stool Softener Oral 2 times per day [Active]; - PMHx: 11:12 Atrial Fib; pulmonary fibrosis; Hypothyroidism; atrificial heart valve; Diabetes - tw2 IDDM; Hypertension; Renal Disease; - Immunization history:: Adult Immunizations Adult Immunizations up to date. - Social history:: Smoking status: Smoking status: Patient/guardian denies using tobacco. - Ebola Screening: : Patient denies travel to an Ebola-affected area in the 21 days before illness onset Patient denies exposure to infectious person Patient denies travel to an Ebola-affected area in the 21 days before illness onset. - Family history:: not pertinent. - Hospitalizations: : No recent hospitalization is reported. Screenin:08 Abuse screen: Denies threats or abuse. Nutritional screening: No deficits noted. tw2 Tuberculosis screening: No symptoms or risk factors identified. Fall Risk Secondary diagnosis (15 points) dementia, impaired mobility. Assessment: 11:05 General: Appears uncomfortable, Behavior is calm, cooperative, appropriate for age. tw2 Pain: Complains of pain in dorsal aspect of left forearm and left bicep and anterior aspect of left shoulder. Neuro: Level of Consciousness is awake, alert, obeys commands, Oriented to person, place. Cardiovascular: Heart tones S1 S2 Patient's skin is warm and dry. Respiratory: Airway is patent Respiratory effort is even, unlabored, Respiratory pattern is regular, symmetrical, Breath sounds are clear bilaterally. GI: No signs and/or symptoms were reported involving the gastrointestinal system. Abdomen is flat, Bowel sounds present X 4 quads. : No signs and/or symptoms were reported regarding the genitourinary system. EENT: No signs and/or symptoms were reported regarding the EENT system. Derm: Skin is fragile, is thin, Skin is dry, Skin temperature is warm. Musculoskeletal: Range of motion: limited in left shoulder Reports pain in dorsal aspect of left forearm and left bicep and anterior aspect of left shoulder. 12:53 Reassessment: Patient appears in no apparent distress at this time. Patient and/or tw2 family updated on plan of care and expected duration. Pain level reassessed. Patient states feeling better. 13:40 Reassessment: Patient appears in no apparent distress at this time. Patient and/or tw2 family updated on plan of care and expected duration. Pain level reassessed. 14:41 Reassessment: Patient appears in no apparent distress at this time. Patient and/or tw2 family updated on plan of care and expected duration. Pain level reassessed. 16:09 Reassessment: Patient appears in no apparent distress at this time. No changes from tw2 previously documented assessment. Patient and/or family updated on plan of care and expected duration. Pain level reassessed. Vital Signs: 11:07 BP 117 / 50; Pulse 72; Resp 18; Temp 98.5(TE); Pulse Ox 100% on R/A; Pain 10/10; ss 12:39 BP 120 / 48; Pulse 67; Resp 17; Pulse Ox 100% on R/A; tw2 12:58 BP 101 / 40; Pulse 66; Resp 17; Pulse Ox 98% on R/A; tw2 13:39 BP 94 / 42 Supine; Pulse 71; Resp 17; Pulse Ox 98% on R/A; tw2 14:41 BP 91 / 37; Pulse 72; Resp 17; Pulse Ox 96% on R/A; tw2 16:09 BP 93 / 49; Pulse 69; Resp 17; Pulse Ox 95% on R/A; tw2 ED Course: 11:02 Patient arrived in ED. tw2 11:03 Bed in low position. Call light in reach. Side rails up X2. classroom monitor on. Pulse ss ox on. NIBP on. Warm blanket given. 11:04 Hans Couch MD is Attending Physician. rn 11:07 Maya Adhikari RN is Primary Nurse. ss 11:07 Arm band placed on left wrist. ss 11:10 Triage completed. ss 11:25 Missed attempt(s): 22 gauge in right antecubital area. Bleeding controlled, band aid tw2 applied, catheter tip intact. Inserted saline lock: 22 gauge in right antecubital area, using aseptic technique. Blood collected. 12:25 XRAY Clavicle LEFT In Process Unspecified. EDMS 12:25 XRAY Humerus LEFT In Process Unspecified. EDMS 12:25 XRAY Forearm LEFT In Process Unspecified. EDMS 13:01 Primary Nurse role handed off by Maya Adhikari RN tw2 13:01 Kely Armstrong RN is Primary Nurse. tw2 13:12 Олег Calhoun MD is Hospitalizing Provider. rn 16:10 No provider procedures requiring assistance completed. Patient admitted, IV remains in tw2 place. Administered Medications: 11:30 Drug: Demerol - Meperidine 12.5 mg Route: IVP; Site: right antecubital; tw2 12:59 Follow up: Response: No adverse reaction; Pain is decreased; RASS: Drowsy (-1) tw2 Point of Care Testing: Blood Glucose: 16:09 Blood Glucose: 235 mg/dL; tw2 Ranges: Outcome: 13:12 Decision to Hospitalize by Provider. rn 16:10 Admitted to Med/surg accompanied by tech, via stretcher, room 412, with chart, Report tw2 called to Yajaira<RN 16:10 Condition: stable 16:10 Instructed on the need for admit. 16:16 Patient left the ED. tw2 Signatures: Dispatcher [employer] EDMS Hans Couch MD MD rn Smirch, Shelby, RN RN ss Wise, Tara, RN RN tw2
--- NOTE | 2019-10-26 13:13 | EDPHYS ---
Physician Documentation [facility] Name: Lynda Esquivel Age: 78 yrs Sex: Female : 1940 Arrival Date: 10/26/2019 Time: 11:02 Bed 13 Private MD: ED Physician Hans Couch HPI: 10/26 12:02 This 78 yrs old Female presents to ER via EMS with complaints of Arm Pain. rn 12:02 The patient or guardian complains of pain. The complaints affect the anterior aspect of rn left shoulder, left bicep and dorsal aspect of left forearm. 12:02 Onset: The symptoms/episode began/occurred this morning. Modifying factors: The rn symptoms are alleviated by nothing. the symptoms are aggravated by movement. Severity of symptoms: At their worst the symptoms were moderate, in the emergency department the symptoms are unchanged. Reports left arm pain, both arms hurting, no known injury, has had stroke in past and requires a lot of transfers and assistance, family member not sure if she got injured accidentally. Pt denies chest pain. . Historical: - Allergies: 11:12 metformin; tw2 11:12 Mjspnry-Vkf-Prf Reductase Inhibitors; tw2 11:12 Beta-Blockers (Beta-Adrenergic Bloc; tw2 11:12 Sulfa (Sulfonamide Antibiotics); tw2 - Home Meds: 11:12 Xarelto 10 mg Oral tab once daily [Active]; Citracal Regular Oral daily [Active]; tw2 biotin 10 mg Oral tab daily [Active]; carvedilol 3.125 mg Oral tab 1 tab 2 times per day [Active]; Co Q-10 Oral daily [Active]; fenofibrate Oral once daily [Active]; levothyroxine 50 mcg tab once daily [Active]; Lantus Sub-Q twice a day [Active]; liothyronine 5 mcg Oral tab 1 tab once daily [Active]; losartan 50 mg Oral tab 1 tab once daily [Active]; Magnesium Oxide Oral daily [Active]; prednisone 2.5 mg Oral tab once daily [Active]; Stool Softener Oral 2 times per day [Active]; - PMHx: 11:12 Atrial Fib; pulmonary fibrosis; Hypothyroidism; atrificial heart valve; Diabetes - tw2 IDDM; Hypertension; Renal Disease; - Immunization history:: Adult Immunizations Adult Immunizations up to date. - Social history:: Smoking status: Smoking status: Patient/guardian denies using tobacco. - Ebola Screening: : Patient denies travel to an Ebola-affected area in the 21 days before illness onset Patient denies exposure to infectious person Patient denies travel to an Ebola-affected area in the 21 days before illness onset. - Family history:: not pertinent. - Hospitalizations: : No recent hospitalization is reported. ROS: 12:02 Constitutional: Negative for fever, chills, and weight loss, Eyes: Negative for injury, rn pain, redness, and discharge, Neck: Negative for injury, pain, and swelling, Cardiovascular: Negative for chest pain, palpitations, and edema, Respiratory: Negative for shortness of breath, cough, wheezing, and pleuritic chest pain, Abdomen/GI: Negative for abdominal pain, nausea, vomiting, diarrhea, and constipation, MS/Extremity: + left arm pain Neuro: Negative for headache, weakness, numbness, tingling, and seizure. Exam: 12:02 Constitutional: This is a well developed, well nourished patient who is awake, alert, rn and in no acute distress. Head/Face: Normocephalic, atraumatic. Neck: Trachea midline, no thyromegaly or masses palpated, and no cervical lymphadenopathy. Supple, full range of motion without nuchal rigidity, or vertebral point tenderness. No Meningismus. Chest/axilla: Normal chest wall appearance and motion. Nontender with no deformity. No lesions are appreciated. Cardiovascular: Irregular rhythm, regular rate Respiratory: Lungs have equal breath sounds bilaterally, clear to auscultation. No increased work of breathing, no retractions or nasal flaring. Abdomen/GI: soft, non-tender Skin: Warm, dry with normal turgor. Normal color with no rashes, no lesions, and no evidence of cellulitis. MS/ Extremity: Pulses equal, no cyanosis. Neurovascular intact. Painful ROM entire left arm without focality, no deformity, hurts to range fingers/wrist/elbow/shoulder. Neuro: Awake and alert, GCS 15, oriented to person, place, time, and situation. Cranial nerves II-XII grossly intact. Motor strength 5/5 in all extremities, limited LUE due to pain. Sensory grossly intact. Vital Signs: 11:07 BP 117 / 50; Pulse 72; Resp 18; Temp 98.5(TE); Pulse Ox 100% on R/A; Pain 10/10; ss 12:39 BP 120 / 48; Pulse 67; Resp 17; Pulse Ox 100% on R/A; tw2 12:58 BP 101 / 40; Pulse 66; Resp 17; Pulse Ox 98% on R/A; tw2 13:39 BP 94 / 42 Supine; Pulse 71; Resp 17; Pulse Ox 98% on R/A; tw2 14:41 BP 91 / 37; Pulse 72; Resp 17; Pulse Ox 96% on R/A; tw2 16:09 BP 93 / 49; Pulse 69; Resp 17; Pulse Ox 95% on R/A; tw2 MDM: 11:05 Patient medically screened. rn 13:08 Differential diagnosis: tendonitis, cardiac related, radiculopathy. Data reviewed: rn vital signs, nurses notes, lab test result(s), EKG, radiologic studies, plain films, and as a result, I will admit patient. Counseling: I had a detailed discussion with the patient and/or guardian regarding: the historical points, exam findings, and any diagnostic results supporting the discharge/admit diagnosis, lab results, radiology results, the need for further work-up and treatment in the hospital. Response to treatment: the patient's symptoms have mildly improved after treatment, and as a result, I will admit patient. Admission orders: after a detailed discussion of the patient's condition and case, the admit orders are written by me. ED course: Xrays neg for acute findings, ECG shows new twave inversions in setting of trop 0.05, denies chest pain but multiple cardiac problems, and thus will obs for serial trop and further eval. Family not comfortable taking her home with the arm pain and unclear etiology. . 10/26 11:13 Order name: CBC with Diff; Complete Time: 11:56 rn 10/26 11:13 Order name: Basic Metabolic Panel; Complete Time: 11:56 rn 10/26 11:13 Order name: XRAY Clavicle LEFT; Complete Time: 13:00 rn 10/26 11:13 Order name: XRAY Humerus LEFT rn 10/26 11:13 Order name: Troponin (emerg Dept Use Only); Complete Time: 11:56 rn 10/26 11:58 Order name: BNP; Complete Time: 12:23 ms 10/26 11:13 Order name: XRAY Forearm LEFT rn 10/26 11:13 Order name: IV Start; Complete Time: 13:05 rn 10/26 11:13 Order name: EKG; Complete Time: 11:14 rn 10/26 11:13 Order name: EKG - Nurse/Tech; Complete Time: 13:05 rn Administered Medications: 11:30 Drug: Demerol - Meperidine 12.5 mg Route: IVP; Site: right antecubital; tw2 12:59 Follow up: Response: No adverse reaction; Pain is decreased; RASS: Drowsy (-1) tw2 Point of Care Testing: Blood Glucose: 16:09 Blood Glucose: 235 mg/dL; tw2 Ranges: Critical Glucose Levels:Adult <50 mg/dl or >400 mg/dl <40 mg/dl or >180 mg/dl Disposition: 10/26/19 13:12 Hospitalization ordered by Олег Calhoun for Observation. Preliminary diagnosis are Pain in left arm, Elevated troponin. - Bed requested for Telemetry/MedSurg (observation). - Status is Observation. tw2 - Condition is Stable. - Problem is new. - Symptoms have improved. UTI on Admission? No Signatures: Dispatcher [employer] EDMS Mihaela Rosa ms, Roman, MD MD rn Smirch, Shelby, RN RN ss Wise, Tara, RN RN tw2 Corrections: (The following items were deleted from the chart) 12:25 12:02 Constitutional: This is a well developed, well nourished patient who is awake, rn alert, and in no acute distress. Head/Face: Normocephalic, atraumatic. Neck: Trachea midline, no thyromegaly or masses palpated, and no cervical lymphadenopathy. Supple, full range of motion without nuchal rigidity, or vertebral point tenderness. No Meningismus. Chest/axilla: Normal chest wall appearance and motion. Nontender with no deformity. No lesions are appreciated. Cardiovascular: Regular rate and rhythm with a normal S1 and S2. No gallops, murmurs, or rubs. Normal PMI, no JVD. No pulse deficits. rn 15:54 13:12 Hospitalization Ordered by Олег Calhoun MD for Observation. Preliminary diagnosis ms is Pain in left arm; Elevated troponin. Bed requested for Telemetry/MedSurg (observation). Status is Observation. Condition is Stable. Problem is new. Symptoms have improved. UTI on Admission? No. rn 16:16 15:54 10/26/2019 13:12 Hospitalization Ordered by Олег Calhoun MD for Observation. tw2 Preliminary diagnosis is Pain in left arm; Elevated troponin. Bed requested for Telemetry/MedSurg (observation). Status is Observation. Condition is Stable. Problem is new. Symptoms have improved. UTI on Admission? No. ms
[2019-10-26] MEDS ORDERED: MEPERIDINE HCL 25 MG/0.5 ML IV PRN (16:33)
[2019-10-26] MEDS ORDERED: ONDANSETRON 4 MG/2 ML VIAL IV PRN (16:33)
[2019-10-26 17:02] VITALS: BMI 26.6
[2019-10-26] MEDS ORDERED: dexAMETHasone 10 MG/ML VIAL IM ONE ×2 (18:43→19:00)
--- NOTE | 2019-10-26 19:21 | P.SSS ---
Patient History Date of Service: 10/26/19 Reason for admission: WRIST PAIN History of Present Illness: MS PALOMINO IS A SEVERELY DEBLILITATED LADY WITH DM, HTN, RA, OA, CAD SP CABG, COMPLICATION OF EXPOSED WIRES THAT HAD TO BE REMOVED BY SURGERY COMES WITH L SIDE WRIST PAIN. I ASKED HER IF SHE HAD CHEST PAIN AND SHE SAID NO. SHE ALSO SEEMS TO BE MUCH MORE CONFUSED THAN BEFORE. SHE HAS BASELINE DEMENTIA FROM AGING AND DM. I AM NOT SURE WHERE SHE LIVES NOW. SHE SAYS SHE LIVES IN THE HOSPITAL WHERE SHE IS NOW. Allergies Beta-Blockers (Beta-Adrenergic Bloc Allergy (Verified 10/26/19 17:06) Hives/Rash metformin Allergy (Verified 10/26/19 17:06) Unknown Sulfa (Sulfonamide Antibiotics) [Sulfa(Sulfonamide Antibiotics)] Allergy ( Verified 10/26/19 17:06) Hives/Rash Sgqprzk-Kcn-Hfw Re Allergy (Uncoded 10/26/19 17:06) Unknown Qxwjlrc-Ppr-Ntg Reductase Allergy (Uncoded 10/26/19 17:06) Unknown Home Medications: Amlodipine Besylate [Norvasc] 5 mg PO DAILY 10/26/19 Calcium Carb/Vitamin D3/Vit K1 [Calcium + D Soft Chewable Tab] 1 tab PO BID 10/03 Docusate Calcium [Surfak] 240 mg PO DAILYPRN PRN 10/26/19 Fenofibrate Nanocrystallized [Fenofibrate] 1 tab PO DAILY 10/26/19 Fluticasone Propion/Salmeterol [Fluticasone-Salmeterol 250-50] 1 spray IH BID Ipratropium/Albuterol Sulfate [Iprat-Albut 0.5-3(2.5) mg/3 ml] 2 puff IH Q6HP PRN 10/26/19 Levothyroxine Sodium 50 mcg PO TDENY4ML 10/26/19 Liraglutide [Victoza 2-Rosendo] 0.6 mg SQ DAILY 10/26/19 Mirtazapine [Remeron] 15 mg PO BEDTIME 10/26/19 Risperidone 4 mg PO BEDTIME 10/26/19 Rivaroxaban [Xarelto*] 1 tab PO DAILY AT SUPPER 10/26/19 carvediloL [Carvedilol] 6.25 mg PO BIDWM 10/26/19 predniSONE [Deltasone] 20 mg PO DAILY 10/26/19 - Past Medical/Surgical History Has patient received pneumonia vaccine in the past: Yes Diabetic: Yes -: pulmonary fibrosis -: IDDM -: kidney disease -: arthritis(osteo and rheumatoid) -: thyroid problems -: AFIB -: HTN -: 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 heart surgery) -: hysterectomy 1969 -: re-open chest fixed wires that closes the ribs (feb 18 2018) -: Right artificial shoulder sx 2008 -: gall bladder and appendix removal 1979 - Family History Mother -: Other (see notes) Notes: blockage in neck Father -: Heart disease Sister -: Other (see notes) Notes: breast cancer Brother -: Other (see notes) Notes: Lung cancer - Social History Smoking Status: Never smoker Alcohol use: No CD- Drugs: No Caffeine use: No Place of [facility]idence[facility] Review of Systems 10-point ROS is otherwise unremarkable General: Weakness, Malaise Physical Examination - Vital Signs Temperature: 98.3 F Blood Pressure: 99/41 Pulse: 73 Respirations: 20 Pulse Ox (%): 93 - Physical Exam General: Oriented x1, Cooperative, Mild distress, Moderate distress HEENT: Atraumatic, PERRLA, Mucous membr. moist/pink, EOMI, Sclerae nonicteric Neck: Supple, 2+ carotid pulse no bruit, No LAD, Without JVD or thyroid abnormality Respiratory: Clear to auscultation bilaterally, Normal air movement Cardiovascular: Regular rate/rhythm, Normal S1 S2 Gastrointestinal: Normal bowel sounds, No tenderness Musculoskeletal: Other (L SIDE TENDONITIS WRIST.) Integumentary: No rashes Neurological: Normal gait, Normal speech, Normal strength at 5/5 x4 extr, Normal tone, Normal affect Lymphatics: No axilla or inguinal lymphadenopathy - Studies Laboratory Data (last 24 hrs) 10/26/19 11:25: Sodium 138, Potassium 3.9, BUN 21 H, Creatinine 1.17, Glucose 259 H 10/26/19 11:25: WBC 12.4 H, Hgb 11.6 L, Hct 35.1 L, Plt Count 106 L - Diagnosis (Problem(s)) (1) Tenosynovitis Current Visit: Yes Status: Acute Plan: SHE HAS NO CARDIAC SYMPTOMS. HER PAIN AND INABILITY TO MOVE L ARM IS FROM SEVERE PAIN SHE HAS FROM TENDONITS. I TALKED TO DAUGHTER AND SHE AGREES THAT AT THIS POINT SHE SHOULD BE WITH HOSPICE SO SHE IS NOT THROWN FROM [facility]ED [facility]IV[facility] TO [place] BACK TO ER HERE FOR NO REASON. THERE IS NO QUALITY OF LIFE. SHE DOES NOT KNOW WHAT IS HAPPENING. DAUGHTER WANTS HER TO BE COMFORTABLE AND NOT SENT TO MANY PLACES LIKE SHE HAS SPENT IN LAST 6 WEEKS. (2) Alzheimer disease Current Visit: Yes Status: Chronic Plan: ABOVE. NO MEDS WILL HELP AT THIS POINT. Qualifiers: Alzheimer's disease onset: late-onset (3) Diabetes Current Visit: No Status: Chronic Plan: TIGHT CONTROL IS NOT ADIVSED AT THIS POINT. Qualifiers: Diabetes mellitus type: type 2 (4) History of CVA (cerebrovascular accident) Current Visit: No Status: Chronic - Disposition Disposition: ROUTINE DISCHARGE Condition: GOOD Diet: ADA
[2019-10-26] MEDS ORDERED: WATER FOR INJ,STERILE 10 ML IM PRN (19:40)
[2019-10-26] MEDS ORDERED: ZIPRASIDONE MESYLA 20 MG/VIAL IM PRN (19:40)
[2019-10-26] MEDS ORDERED: GLUCAGON 1 MG/VIAL IM PRN (20:18)
[2019-10-26] MEDS ORDERED: D50W 25 GM/50 ML SYRINGE/VIAL IV PRN (20:18)
[2019-10-26 20:36] LABS: MPV 8.1 fL (7.6-11.3)
[2019-10-26 20:42] LABS: Platelet Estimate ND
[2019-10-26] MEDS ORDERED: MIRTAZAPINE 15 MG TAB PO SCH (21:00)
[2019-10-26] MEDS ORDERED: RISPERIDONE 1 MG TABLET PO SCH (21:00)
[2019-10-26] MEDS: LIDOCAINE 5% OINT 30 GM TUBE TOP SCH (21:19)
[2019-10-26] MEDS: INSULIN -REGULAR HUMAN 50 UNIT/0.5 ML ML SQ SCH (21:20)
[2019-10-27 04:23] VITALS: BP 132/63; TEMP 97.1
[2019-10-27 04:28] LABS: Absolute Lymphocytes (CBC) 1.5 K/uL (0.7-4.9); Basophils % 0.2 % (0-1.3); Hematocrit 34.2 % (36.0-45.0); Lymphocytes % 14.4 % (15.3-44.8); MPV 8.5 fL (7.6-11.3); RBC Red Blood Cell Count 3.99 M/uL (3.86-4.86)
[2019-10-27] MEDS: INSULIN -REGULAR HUMAN 50 UNIT/0.5 ML ML SQ SCH (08:35)
[2019-10-27] MEDS: LIDOCAINE 5% OINT 30 GM TUBE TOP SCH (08:36)
[2019-10-27 08:47] VITALS: O2SAT 98
[2019-10-27] MEDS ORDERED: ENOXAPARIN 40 MG/0.4 ML SQ SCH (09:00)
[2019-10-27] MEDS ORDERED: ASPIRIN EC 81 MG TAB PO SCH (09:00)
--- NOTE | 2019-10-27 10:26 | EKG ---
Test Date: 2019-10-26 Test Time: 12:36:35 Engineering Assistant: AMADO MEASUREMENT RESULTS: Intervals: Rate: 69 WA: QRSD: 148 QT: 426 QTc: 456 Aiken: P: WA: QRS: 69 T: 54 INTERPRETIVE STATEMENTS: Sinus rhythm Right bundle branch block T wave abnormality, consider anterolateral ischemia Abnormal ECG Compared to ECG 01/22/2019 10:19:36 Sinus bradycardia no longer present Electronically Signed On 10-27-19 10:25:41 SNOW REMOVAL/PLOWING by Jake Clark
--- NOTE | 2019-10-27 10:36 | RAD REPORT ---
EXAM DESCRIPTION: RAD - Forearm Left - 10/26/2019 12:25 pm CLINICAL HISTORY: PAIN Trauma, pain COMPARISON: None FINDINGS: Left clavicle, left humerus and left forearm- multiple projections Diffuse osteopenia is seen. No acute fracture or dislocation. Vascular calcification.
== END 2019-10-27 10:05 ==
LOC: ER 10:58 → ERHOLD 15:23 → 4TH 16:04
PROVIDERS: ADMIT Internal Medicine; ATTEND Internal Medicine
DX: M65.9 Synovitis and tenosynovitis, unspecified (principal); G30.1 Alzheimer's disease with late onset; F02.80 Dementia in other diseases classified elsewhere, unspecified severity, without behavioral disturbance, psychotic disturbance, mood disturbance, and anxiety; E11.9 Type 2 diabetes mellitus without complications; I10 Essential (primary) hypertension; M06.9 Rheumatoid arthritis, unspecified; I25.10 Atherosclerotic heart disease of native coronary artery without angina pectoris; I48.91 Unspecified atrial fibrillation; Z95.2 Presence of prosthetic heart valve; Z95.1 Presence of aortocoronary bypass graft; Z88.2 Allergy status to sulfonamides; Z86.73 Personal history of transient ischemic attack (TIA), and cerebral infarction without residual deficits
CPT/HCPCS: 93005; 85025 ×2; 80048 ×2; 36415; 85049; 82947 ×4; 84484 ×2; 83880; 73090; 73060; 73000; 96374; 99285; J1100; J2175 ×2; G0378 ×3; J1650